=== PATIENT | female | born 1960 | race Caucasian/White ===

== ENCOUNTER → 2016-06-12 | Outpatient (REF) | payer MEDICARE, MEDICAID ==
[2016-06-12 13:26] LABS: ALBUMIN 3.6 GM/DL (3.2-5.2); ALBUMIN/GLOBULIN RATIO 1.06 (1.00-1.93); ALKALINE PHOSPHATASE 78 U/L (45-117); ALT/SGPT 15 U/L (12-78); ANION GAP 8 MEQ/L (8-16); AST/SGOT 15 U/L (15-37); BILIRUBIN,TOTAL 0.3 MG/DL (0.2-1.0); BLOOD UREA NITROGEN 21 MG/DL (7-18); CALCIUM LEVEL 8.7 MG/DL (8.5-10.1); CARBON DIOXIDE LEVEL 29 MEQ/L (21-32); CHLORIDE LEVEL 108 MEQ/L (98-107); CREATININE FOR GFR 0.86 MG/DL (0.55-1.02); FREE T4 0.92 NG/DL (0.76-1.46); GLOMERULAR FILTRATION RATE > 60.0 (>51); GLUCOSE, FASTING 85 MG/DL (70-105); POTASSIUM SERUM 4.2 MEQ/L (3.5-5.1); SODIUM LEVEL 145 MEQ/L (136-145)
== END ==
LOC: M SFHCPLAZ 10:26
PROVIDERS: ATTEND Nurse Practitioner Family
DX: I10 Essential (primary) hypertension (principal); E03.9 Hypothyroidism, unspecified

== ENCOUNTER → 2016-07-17 | Outpatient (CLI) | payer MEDICARE, MEDICAID ==
[2016-07-17 12:48] LABS: MEAN CORPUSCULAR HEMOGLOBIN 28.4 pg (27.0-33.0); MEAN CORPUSCULAR HGB CONC 33.7 g/dl (32.0-36.5); MEAN CORPUSCULAR VOLUME 84.1 fl (80.0-96.0); RED CELL DISTRIBUTION WIDTH 14.9 % (11.5-14.5)
[2016-07-17 13:06] LABS: ANION GAP 8 MEQ/L (8-16); BLOOD UREA NITROGEN 24 MG/DL (7-18); CARBON DIOXIDE LEVEL 28 MEQ/L (21-32); CHLORIDE LEVEL 107 MEQ/L (98-107); CREATININE FOR GFR 0.94 MG/DL (0.55-1.02); GLOMERULAR FILTRATION RATE > 60.0 (>51); GLUCOSE, FASTING 98 MG/DL (70-105); POTASSIUM SERUM 4.2 MEQ/L (3.5-5.1); SODIUM LEVEL 143 MEQ/L (136-145)
[2016-07-17 13:07] LABS: ALBUMIN 3.7 GM/DL (3.2-5.2); ALBUMIN/GLOBULIN RATIO 1.06 (1.00-1.93); ALKALINE PHOSPHATASE 79 U/L (45-117); ALT/SGPT 14 U/L (12-78); AST/SGOT 13 U/L (15-37); BILIRUBIN,DIRECT < 0.1 MG/DL (0.0-0.2); BILIRUBIN,TOTAL 0.4 MG/DL (0.2-1.0); PHOSPHORUS LEVEL 3.1 MG/DL (2.5-4.9); TOTAL PROTEIN 7.2 GM/DL (6.4-8.2)
== END ==
LOC: M WUC 09:26
PROVIDERS: ATTEND Podiatrist Foot & Ankle Surgery
DX: B35.1 Tinea unguium (principal); Z79.899 Other long term (current) drug therapy

== ENCOUNTER → 2016-08-21 | Outpatient (CLI) | payer MEDICARE, MEDICAID ==
[2016-08-21 12:59] LABS: ALBUMIN 3.5 GM/DL (3.2-5.2); ALBUMIN/GLOBULIN RATIO 1.13 (1.00-1.93); ALKALINE PHOSPHATASE 78 U/L (45-117); ALT/SGPT 14 U/L (12-78); ANION GAP 9 MEQ/L (8-16); AST/SGOT 12 U/L (15-37); BILIRUBIN,DIRECT < 0.1 MG/DL (0.0-0.2); BILIRUBIN,TOTAL 0.2 MG/DL (0.2-1.0); BLOOD UREA NITROGEN 20 MG/DL (7-18); CALCIUM LEVEL 8.3 MG/DL (8.5-10.1); CARBON DIOXIDE LEVEL 25 MEQ/L (21-32); CHLORIDE LEVEL 109 MEQ/L (98-107); CREATININE FOR GFR 0.84 MG/DL (0.55-1.02); GLOMERULAR FILTRATION RATE > 60.0 (>51); GLUCOSE, FASTING 102 MG/DL (70-105); PHOSPHORUS LEVEL 2.5 MG/DL (2.5-4.9); SODIUM LEVEL 143 MEQ/L (136-145); TOTAL PROTEIN 6.6 GM/DL (6.4-8.2)
[2016-08-21 13:04] LABS: MEAN CORPUSCULAR HEMOGLOBIN 27.5 pg (27.0-33.0); MEAN CORPUSCULAR HGB CONC 32.2 g/dl (32.0-36.5); MEAN CORPUSCULAR VOLUME 85.6 fl (80.0-96.0); RED CELL DISTRIBUTION WIDTH 15.1 % (11.5-14.5); WHITE BLOOD COUNT 5.8 K/mm3 (4.0-10.0)
== END ==
LOC: M WUC 09:36
PROVIDERS: ATTEND Podiatrist Foot & Ankle Surgery
DX: Z51.81 Encounter for therapeutic drug level monitoring (principal); Z79.899 Other long term (current) drug therapy

== ENCOUNTER → 2016-10-02 | Outpatient (CLI) | payer MEDICARE, MEDICAID ==
[2016-10-02 11:20] LABS: MEAN CORPUSCULAR HEMOGLOBIN 28.5 pg (27.0-33.0); MEAN CORPUSCULAR HGB CONC 33.7 g/dl (32.0-36.5); MEAN CORPUSCULAR VOLUME 84.5 fl (80.0-96.0); RED CELL DISTRIBUTION WIDTH 14.6 % (11.5-14.5); WHITE BLOOD COUNT 5.8 K/mm3 (4.0-10.0)
[2016-10-02 11:41] LABS: ALBUMIN 3.3 GM/DL (3.2-5.2); ALBUMIN/GLOBULIN RATIO 0.97 (1.00-1.93); ALKALINE PHOSPHATASE 75 U/L (45-117); ALT/SGPT 16 U/L (12-78); ANION GAP 6 MEQ/L (8-16); AST/SGOT 10 U/L (15-37); BILIRUBIN,DIRECT < 0.1 MG/DL (0.0-0.2); BILIRUBIN,TOTAL 0.3 MG/DL (0.2-1.0); BLOOD UREA NITROGEN 26 MG/DL (7-18); CALCIUM LEVEL 8.8 MG/DL (8.5-10.1); CARBON DIOXIDE LEVEL 29 MEQ/L (21-32); CHLORIDE LEVEL 108 MEQ/L (98-107); CREATININE FOR GFR 1.07 MG/DL (0.55-1.02); GLOMERULAR FILTRATION RATE 56.1 (>51); GLUCOSE, FASTING 127 MG/DL (70-105); PHOSPHORUS LEVEL 2.9 MG/DL (2.5-4.9); POTASSIUM SERUM 4.1 MEQ/L (3.5-5.1); SODIUM LEVEL 143 MEQ/L (136-145); TOTAL PROTEIN 6.7 GM/DL (6.4-8.2)
== END ==
LOC: M WUC 09:33
PROVIDERS: ATTEND Podiatrist Foot & Ankle Surgery
DX: B35.1 Tinea unguium (principal); Z79.899 Other long term (current) drug therapy

== ENCOUNTER → 2016-10-09 | Outpatient (REF) | payer MEDICARE, MEDICAID ==
[2016-10-09 13:41] LABS: ALBUMIN 3.4 GM/DL (3.2-5.2); ALBUMIN/GLOBULIN RATIO 0.94 (1.00-1.93); ALKALINE PHOSPHATASE 81 U/L (45-117); ALT/SGPT 14 U/L (12-78); ANION GAP 10 MEQ/L (8-16); AST/SGOT 14 U/L (15-37); BILIRUBIN,TOTAL 0.3 MG/DL (0.2-1.0); BLOOD UREA NITROGEN 21 MG/DL (7-18); CARBON DIOXIDE LEVEL 26 MEQ/L (21-32); CHLORIDE LEVEL 107 MEQ/L (98-107); CHOLESTEROL LEVEL 280 MG/DL (<200); FREE T4 1.05 NG/DL (0.76-1.46); GLOMERULAR FILTRATION RATE > 60.0 (>51); GLUCOSE, FASTING 98 MG/DL (70-105); POTASSIUM SERUM 4.2 MEQ/L (3.5-5.1); SODIUM LEVEL 143 MEQ/L (136-145); TRIGLYCERIDES LEVEL 219 MG/DL (<150)
== END ==
LOC: M SFHCPLAZ 10:37
PROVIDERS: ATTEND Nurse Practitioner Family
DX: E78.2 Mixed hyperlipidemia (principal); E03.9 Hypothyroidism, unspecified; I10 Essential (primary) hypertension

== ENCOUNTER → 2016-11-20 | Outpatient (CLI) | payer MEDICARE, MEDICAID ==
[2016-11-20 11:21] LABS: ALBUMIN 3.5 GM/DL (3.2-5.2); ALBUMIN/GLOBULIN RATIO 0.92 (1.00-1.93); BILIRUBIN,TOTAL 0.4 MG/DL (0.2-1.0); CALCIUM LEVEL 9.2 MG/DL (8.5-10.1); CREATININE FOR GFR 1.04 MG/DL (0.55-1.02); GLOMERULAR FILTRATION RATE 57.9 (>51); POTASSIUM SERUM 4.3 MEQ/L (3.5-5.1); TOTAL PROTEIN 7.3 GM/DL (6.4-8.2)
== END ==
LOC: M LAB 09:50
PROVIDERS: ATTEND Nurse Practitioner Family
DX: I10 Essential (primary) hypertension (principal)

== ENCOUNTER → 2017-01-22 | Outpatient (CLI) | payer MEDICARE, MEDICAID ==
[2017-01-22 11:03] LABS: MEAN CORPUSCULAR HGB CONC 34.1 g/dl (32.0-36.5); MEAN CORPUSCULAR VOLUME 85.2 fl (80.0-96.0); RED CELL DISTRIBUTION WIDTH 14.5 % (11.5-14.5); WHITE BLOOD COUNT 6.4 K/mm3 (4.0-10.0)
[2017-01-22 11:32] LABS: ALBUMIN 3.5 GM/DL (3.2-5.2); ALBUMIN/GLOBULIN RATIO 1.06 (1.00-1.93); ALKALINE PHOSPHATASE 87 U/L (45-117); ALT/SGPT 15 U/L (12-78); ANION GAP 10 MEQ/L (8-16); AST/SGOT 12 U/L (15-37); BILIRUBIN,DIRECT < 0.1 MG/DL (0.0-0.2); BILIRUBIN,TOTAL 0.3 MG/DL (0.2-1.0); BLOOD UREA NITROGEN 32 MG/DL (7-18); CALCIUM LEVEL 9.1 MG/DL (8.5-10.1); CARBON DIOXIDE LEVEL 26 MEQ/L (21-32); CHLORIDE LEVEL 105 MEQ/L (98-107); CREATININE FOR GFR 1.04 MG/DL (0.55-1.02); GLOMERULAR FILTRATION RATE 57.9 (>51); GLUCOSE, FASTING 119 MG/DL (70-105); PHOSPHORUS LEVEL 3.1 MG/DL (2.5-4.9); POTASSIUM SERUM 4.2 MEQ/L (3.5-5.1); SODIUM LEVEL 141 MEQ/L (136-145); TOTAL PROTEIN 6.8 GM/DL (6.4-8.2)
== END ==
LOC: M LAB 10:09
PROVIDERS: ATTEND Podiatrist Foot & Ankle Surgery
DX: B35.1 Tinea unguium (principal); Z79.899 Other long term (current) drug therapy

== ENCOUNTER → 2017-02-05 | Outpatient (CLI) | payer MEDICARE, MEDICAID ==
[2017-02-05 10:59] LABS: ALBUMIN 3.4 GM/DL (3.2-5.2); ALBUMIN/GLOBULIN RATIO 0.97 (1.00-1.93); BILIRUBIN,TOTAL 0.3 MG/DL (0.2-1.0); CALCIUM LEVEL 9.4 MG/DL (8.5-10.1); CREATININE FOR GFR 1.43 MG/DL (0.55-1.02); FREE T4 1.39 NG/DL (0.76-1.46); GLOMERULAR FILTRATION RATE 40.1 (>51); POTASSIUM SERUM 4.6 MEQ/L (3.5-5.1); TOTAL PROTEIN 6.9 GM/DL (6.4-8.2)
== END ==
LOC: M LAB 09:48
PROVIDERS: ATTEND Nurse Practitioner Family
DX: I10 Essential (primary) hypertension (principal)

== ENCOUNTER → 2017-02-11 | Outpatient (REF) | payer MEDICARE, MEDICAID | LOC: M SFHCPLAZ 16:24 | PROVIDERS: ATTEND Nurse Practitioner Family | DX: I10 Essential (primary) hypertension (principal); Z53.8 Procedure and treatment not carried out for other reasons ==

== ENCOUNTER → 2017-02-12 | Outpatient (CLI) | payer MEDICARE, MEDICAID ==
[2017-02-12 10:54] LABS: BASO % 0.6 % (0.0-1.0); EOS # 0.3 10^3/uL (0.0-0.50); EOS % 4.1 % (0.0-3.0); IMMATURE GRANULOCYTE % 0.2 % (0-0); LYMPH # 1.2 10^3/uL (1.5-4.5); LYMPH % 17.9 % (24.0-44.0); MEAN CORPUSCULAR HGB CONC 33.4 g/dl (32.0-36.5); MEAN CORPUSCULAR VOLUME 86.8 fl (80.0-96.0); MONO # 0.4 10^3/uL (0.0-0.8); MONO % 5.9 % (0.0-5.0); NEUTROPHILS # 4.6 10^3/uL (1.8-7.7); NEUTROPHILS % 71.3 % (36.0-66.0); PLATELET COUNT, AUTOMATED 339 10^3/uL (150-450); RED CELL DISTRIBUTION WIDTH 14.4 % (11.5-14.5); WHITE BLOOD COUNT 6.4 10^3/uL (4.0-10.0)
[2017-02-12 11:14] LABS: CREATININE FOR GFR 1.19 MG/DL (0.55-1.02); GLOMERULAR FILTRATION RATE 49.6 (>51); POTASSIUM SERUM 4.3 MEQ/L (3.5-5.1)
== END ==
LOC: M LAB 09:50
PROVIDERS: ATTEND Nurse Practitioner Family
DX: R10.9 Unspecified abdominal pain (principal)

== ENCOUNTER → 2017-02-12 | Outpatient (REF) | payer MEDICARE, MEDICAID | LOC: M SFHCPLAZ 17:14 | PROVIDERS: ATTEND Family Medicine | DX: R31.9 Hematuria, unspecified (principal) ==

== ENCOUNTER → 2017-02-25 | Outpatient (CLI) | payer MEDICARE, MEDICAID ==
--- NOTE | 2017-02-25 09:26 | REP ---
RENAL ULTRASOUND: HISTORY: Acute renal failure. The kidneys are normal in echogenicity. The right kidney measures 4.5 cm in transverse by 4.3 cm in AP by 10 cm in cephalocaudal dimensions. The left kidney measures 4.7 cm in transverse by 5.2 cm in AP by 10 cm in cephalocaudal dimensions. There is no hydronephrosis or mass. There are no filling defects in the urinary bladder. IMPRESSION: Normal renal ultrasound. Signed by Isidro Villafana MD 02/25/2017 09:27 A
== END ==
LOC: M RAD 08:33
PROVIDERS: ATTEND Nurse Practitioner Family
DX: N17.9 Acute kidney failure, unspecified (principal)

== ENCOUNTER → 2017-03-05 | Outpatient (REF) | payer MEDICARE, MEDICAID ==
[2017-03-05 19:36] LABS: CREATININE FOR GFR 1.16 MG/DL (0.55-1.02); GLOMERULAR FILTRATION RATE 51.1 (>51); POTASSIUM SERUM 4.1 MEQ/L (3.5-5.1)
== END ==
LOC: M SFHCPLAZ 15:19
PROVIDERS: ATTEND Nurse Practitioner Family
DX: I10 Essential (primary) hypertension (principal); R31.9 Hematuria, unspecified
CPT/HCPCS: 36415; 80048; 81001; 82043; G0463

== ENCOUNTER → 2017-04-30 | Outpatient (REF) | payer MEDICARE, MEDICAID ==
[2017-04-30 18:57] LABS: ALBUMIN 3.6 GM/DL (3.2-5.2); ALKALINE PHOSPHATASE 92 U/L (45-117); ALT/SGPT 16 U/L (12-78); ANION GAP 8 MEQ/L (8-16); AST/SGOT 15 U/L (7-37); BILIRUBIN,TOTAL 0.2 MG/DL (0.2-1.0); BLOOD UREA NITROGEN 26 MG/DL (7-18); CALCIUM LEVEL 8.8 MG/DL (8.5-10.1); CARBON DIOXIDE LEVEL 28 MEQ/L (21-32); CHLORIDE LEVEL 108 MEQ/L (98-107); CREATININE FOR GFR 0.82 MG/DL (0.55-1.02); FREE T4 1.19 NG/DL (0.76-1.46); GLOMERULAR FILTRATION RATE > 60.0 (>51); GLUCOSE, FASTING 112 MG/DL (70-105); SODIUM LEVEL 144 MEQ/L (136-145); TOTAL PROTEIN 7.2 GM/DL (6.4-8.2)
== END ==
LOC: M SFHCPLAZ 15:04
PROVIDERS: ATTEND Nurse Practitioner Family
DX: I10 Essential (primary) hypertension (principal); E03.9 Hypothyroidism, unspecified

== ENCOUNTER 2017-08-19 11:41 | Outpatient (RCR) | payer MEDICARE, MEDICAID | END 2017-09-07 | LOC: M PT 11:41 | DX: Z51.89 Encounter for other specified aftercare (principal); M17.11 Unilateral primary osteoarthritis, right knee | CPT/HCPCS: 97110 ==

== ENCOUNTER → 2017-08-21 | Outpatient (CLI) | payer MEDICARE, MEDICAID | LOC: M WHC 12:50 | DX: Z12.31 Encounter for screening mammogram for malignant neoplasm of breast (principal) | CPT/HCPCS: 77067 ==

== ENCOUNTER 2017-09-08 11:52 | Outpatient (RCR) | payer MEDICARE, MEDICAID | END 2017-10-08 | LOC: M PT 09-10 11:44 | DX: Z51.89 Encounter for other specified aftercare (principal); M17.11 Unilateral primary osteoarthritis, right knee | CPT/HCPCS: 97110 ==

== ENCOUNTER → 2017-09-22 | Outpatient (CLI) | payer MEDICARE ==
[2017-09-22 11:20] LABS: ALBUMIN 3.3 GM/DL (3.2-5.2); ALBUMIN/GLOBULIN RATIO 0.92 (1.00-1.93); ALKALINE PHOSPHATASE 92 U/L (45-117); ALT/SGPT 17 U/L (12-78); ANION GAP 5 MEQ/L (8-16); AST/SGOT 14 U/L (7-37); BILIRUBIN,TOTAL 0.4 MG/DL (0.2-1.0); BLOOD UREA NITROGEN 20 MG/DL (7-18); CARBON DIOXIDE LEVEL 30 MEQ/L (21-32); CHLORIDE LEVEL 107 MEQ/L (98-107); CHOLESTEROL LEVEL 198 MG/DL (<200); CHOLESTEROL RISK RATIO 3.666 (<5); CREATININE FOR GFR 0.87 MG/DL (0.55-1.30); FREE T4 1.15 NG/DL (0.76-1.46); GLOMERULAR FILTRATION RATE > 60.0 (>51); GLUCOSE, FASTING 89 MG/DL (70-100); HDL CHOLESTEROL 54 MG/DL (>40); LDL CHOLESTEROL 106.2 MG/DL (<100); NON-HDL-C 144 MG/DL; POTASSIUM SERUM 4.5 MEQ/L (3.5-5.1); SODIUM LEVEL 142 MEQ/L (136-145); THYROID STIMULATING HORMONE 0.129 uIU/ML (0.358-3.740); TOTAL PROTEIN 6.9 GM/DL (6.4-8.2); TRIGLYCERIDES LEVEL 189 MG/DL (<150)
== END ==
LOC: M LAB 09:57
DX: I10 Essential (primary) hypertension (principal); E03.9 Hypothyroidism, unspecified; M17.9 Osteoarthritis of knee, unspecified
CPT/HCPCS: 84443

== ENCOUNTER → 2018-01-21 | Outpatient (REF) | payer MEDICARE, MEDICAID ==
[2018-01-21 19:41] LABS: ALBUMIN 3.6 GM/DL (3.2-5.2); ALBUMIN/GLOBULIN RATIO 0.92 (1.00-1.93); ALKALINE PHOSPHATASE 93 U/L (45-117); ALT/SGPT 20 U/L (12-78); ANION GAP 9 MEQ/L (8-16); AST/SGOT 25 U/L (7-37); BILIRUBIN,TOTAL 0.4 MG/DL (0.2-1.0); BLOOD UREA NITROGEN 20 MG/DL (7-18); CALCIUM LEVEL 8.8 MG/DL (8.5-10.1); CARBON DIOXIDE LEVEL 26 MEQ/L (21-32); CHLORIDE LEVEL 107 MEQ/L (98-107); CHOLESTEROL LEVEL 182 MG/DL (<200); CHOLESTEROL RISK RATIO 4.232 (<5); CREATININE FOR GFR 1.04 MG/DL (0.55-1.30); FREE T4 1.17 NG/DL (0.76-1.46); GLOMERULAR FILTRATION RATE 57.7 (>51); GLUCOSE, FASTING 113 MG/DL (70-100); HDL CHOLESTEROL 43 MG/DL (>40); LDL CHOLESTEROL 100 MG/DL (<100); NON-HDL-C 139 MG/DL; POTASSIUM SERUM 4.4 MEQ/L (3.5-5.1); SODIUM LEVEL 142 MEQ/L (136-145); THYROID STIMULATING HORMONE 0.377 uIU/ML (0.358-3.740); TOTAL PROTEIN 7.5 GM/DL (6.4-8.2); TRIGLYCERIDES LEVEL 195 MG/DL (<150)
== END ==
LOC: M SFHCPLAZ 15:12
DX: M17.9 Osteoarthritis of knee, unspecified (principal); E03.9 Hypothyroidism, unspecified; I10 Essential (primary) hypertension
CPT/HCPCS: 84443

== ENCOUNTER → 2018-04-23 | Outpatient (REF) | payer MEDICARE, MEDICAID ==
[2018-04-23 16:35] LABS: ALBUMIN 3.7 GM/DL (3.2-5.2); ALBUMIN/GLOBULIN RATIO 1.03 (1.00-1.93); ALKALINE PHOSPHATASE 98 U/L (45-117); ALT/SGPT 17 U/L (12-78); ANION GAP 6 MEQ/L (8-16); AST/SGOT 14 U/L (7-37); BILIRUBIN,TOTAL 0.3 MG/DL (0.2-1.0); BLOOD UREA NITROGEN 29 MG/DL (7-18); CALCIUM LEVEL 8.9 MG/DL (8.5-10.1); CARBON DIOXIDE LEVEL 30 MEQ/L (21-32); CHLORIDE LEVEL 105 MEQ/L (98-107); CREATININE FOR GFR 0.96 MG/DL (0.55-1.30); GLOMERULAR FILTRATION RATE > 60.0 (>51); GLUCOSE, FASTING 95 MG/DL (70-100); POTASSIUM SERUM 4.6 MEQ/L (3.5-5.1); SODIUM LEVEL 141 MEQ/L (136-145); TOTAL PROTEIN 7.3 GM/DL (6.4-8.2)
== END ==
LOC: M SFHCPLAZ 14:15
DX: E03.9 Hypothyroidism, unspecified (principal); E78.2 Mixed hyperlipidemia; I10 Essential (primary) hypertension; Z68.42 Body mass index [BMI] 45.0-49.9, adult
CPT/HCPCS: 84443

== ENCOUNTER → 2018-08-23 | Outpatient (CLI) | payer MEDICARE, MEDICAID ==
--- NOTE | 2018-08-23 12:02 | REPMRS ---
Patient History The patient states she had a clinical breast exam in 05/2018. Patient is postmenopausal and is nulliparous. No known family history of cancer. No Hormone Replacement Therapy Digital Woman Screen Mammo: August 23, 2018 - Exam #: [id number] Bilateral CC and MLO view(s) were taken. Technologist: Nani Iglesias, Technologist Prior study comparison: August 21, 2017, digital woman screen mammo performed at [facility]. May 08, 2014, digital woman screen mammo performed at [facility]. May 24, 2012, digital woman screen mammo performed at [facility]. FINDINGS: There are scattered fibroglandular densities. There has been no change in the appearance of the mammogram from the prior studies. There is a mild amount of scattered fibroglandular density which is fairly symmetric. There is no interval development of dominant mass, architectural distortion, or clustered microcalcification suggestive of malignancy. 3-D tomosynthesis shows no additional findings. Assessment: BI-RADS/ACR category 1 mammogram. Negative Mammogram. Recommendation Routine screening mammogram of both breasts in 1 year (for women over age 40). This patient's Lifetime Breast Cancer RIsk is estimated at 9.5 %. This mammogram was interpreted with the aid of an FDA-approved computer-aided dectection system. Electronically Signed By: Ketan Wells MD 08/23/18 [id number]
== END ==
LOC: M WHC 09:46
PROVIDERS: ATTEND Nurse Practitioner Family
DX: Z12.31 Encounter for screening mammogram for malignant neoplasm of breast (principal); Z78.0 Asymptomatic menopausal state

== ENCOUNTER 2018-10-01 07:33 | Day surgery (SDC) | payer MEDICARE, MEDICAID ==
[~2018-10-01] VITALS: Ht 152.4 cm; Wt 119.7 kg
[~2018-10-01 07:33] MED LIST: AMLO5TAB6 PO; ATOR40TA75 PO; IBUP-1022 PO; LEVO75TA4 PO; LISI40TA PO; OMEP40CA2 PO; ZOFR8TAB24 PO
[2018-10-01] MEDS ORDERED: NS 1,000 ML IV SCH (08:00)
[2018-10-01] MEDS ORDERED: LIDOCAINE 2% INJ 100 MG/5 ML SDV (FOR ANES.) As Ordered ONE (08:38)
[2018-10-01] MEDS ORDERED: PROPOFOL 500 MG/50 ML VIAL As Ordered ONE (08:38)
[2018-10-01] MEDS ORDERED: METOPROLOL 5 MG/5 ML VIAL As Ordered ONE (08:48)
--- NOTE | 2018-10-01 08:56 | ROOR ---
Patient Name: Stefani Macdonald Procedure Date: 10/01/2018 8:34 AM Date of : 1960 Age: 58 Room: [facility] Gender: Female Note Status: Finalized Procedure: Colonoscopy Indications: High risk colon cancer surveillance: Personal history of colonic polyps Providers: Rip BULLOCK MD Referring MD: Kimberley Eldridge NP Requesting Provider: Medicines: Monitored Anesthesia Care Complications: No immediate complications. Procedure: Pre-Anesthesia Assessment: - The heart rate, respiratory rate, oxygen saturations, blood pressure, adequacy of pulmonary ventilation, and response to care were monitored throughout the procedure. The Colonoscope was introduced through the anus and advanced to the cecum, identified by appendiceal orifice and ileocecal valve. The colonoscopy was performed with difficulty due to poor bowel prep with stool present. Findings: The perianal and digital rectal examinations were normal. Two sessile polyps were found in the descending colon and splenic flexure. The polyps were 4 to 6 mm in size. These polyps were removed with a cold snare. Resection was complete, but the polyp tissue was not retrieved. The colon is grossly normal without large tumors or obstructing lesions. Unable to perform adequate detail examination. Small lesions may have been missed. (Colon Prep was POOR, Inadequate Visualisation) Impression: - (Colon Prep was POOR, Inadequate Visualisation) - Unable to perform adequate detail examination. Small lesions may have been missed. - Two 4 to 6 mm polyps in the descending colon and at the splenic flexure, removed with a cold snare. Complete resection. Polyp tissue not retrieved. Recommendation: - Repeat colonoscopy at the next available appointment because the bowel preparation was poor. - My office will call you within the next few days to reschedule a colonoscopy with alternate colon preparation. (All previous scopes with suboptimal prep. This scope with very poor prep. She will need additional colon prep for next colonoscopy) Rip Bullock MD Rip BULLOCK MD 10/01/2018 8:55:50 AM Electronically signed by Rip BULLOCK MD Number of Addenda: 0 Note Initiated On: 10/01/2018 8:34 AM Estimated Blood Loss: Estimated blood loss: none.
[2018-10-01 09:40] VITALS: BP 217/113
== END 2018-10-01 09:42 | disposition home or self-care (01) ==
LOC: M OPP 07:33
PROVIDERS: ATTEND Internal Medicine Gastroenterology
DX: K63.5 Polyp of colon (principal); Z86.010 Personal history of colon polyps

== ENCOUNTER 2018-10-13 13:30 | Emergency (ER) | payer MEDICARE, MEDICAID ==
[2018-10-13] MEDS ORDERED: GI COCKTAIL 50ML BTL(HYOSCYAMINE/MAALOX/LIDOCAINE VISCOUS)(1:3:1) PO ONE (13:45)
[2018-10-13] MEDS ORDERED: ASPIRIN 81 MG CHEW TABLET PO ONE (13:45)
[2018-10-13] MEDS ORDERED: ONDA4TAB5 PO (14:29)
--- NOTE | 2018-10-13 14:34 | REP ---
REASON FOR THE EXAMINATION: Chest pain. PRIORS: None. FINDINGS: The technique utilized in obtaining the radiograph has magnified the cardiac silhouette and accentuated the interstitial markings. The superior mediastinal structures are midline. The cardiac silhouette is unremarkable in size, shape, and position. The diaphragmatic surfaces of the lungs are regular, and the costophrenic angles are clear. The pulmonary roa are clear. The imaged osseous structures are intact. There is a large hiatal hernia. IMPRESSION: There is no acute cardiopulmonary disease. Electronically Signed by Wayne Alcantara DO 10/13/2018 04:57 P
[2018-10-13 14:50] VITALS: BP 174/80
[2018-10-13 15:06] LABS: BASO % 0.4 % (0.0-1.0); EOS # 0.2 10^3/uL (0.0-0.50); EOS % 2.4 % (0.0-3.0); HEMATOCRIT 39.9 % (36.0-47.0); HEMOGLOBIN 12.4 g/dl (12.0-15.5); LYMPH # 1.4 10^3/uL (1.5-4.5); MEAN CORPUSCULAR HEMOGLOBIN 26.4 pg (27.0-33.0); MEAN CORPUSCULAR HGB CONC 31.1 g/dl (32.0-36.5); MEAN CORPUSCULAR VOLUME 84.9 fl (80.0-96.0); MONO # 0.6 10^3/uL (0.0-0.8); MONO % 6.1 % (0.0-5.0); NEUTROPHILS # 6.9 10^3/uL (1.8-7.7); NEUTROPHILS % 75.9 % (36.0-66.0); PLATELET COUNT, AUTOMATED 283 10^3/uL (150-450); WHITE BLOOD COUNT 9.1 10^3/uL (4.0-10.0)
[2018-10-13 15:48] LABS: ALBUMIN 3.4 GM/DL (3.2-5.2); ALT/SGPT 19 U/L (12-78); BILIRUBIN,DIRECT < 0.1 MG/DL (0.0-0.2); BILIRUBIN,TOTAL 0.2 MG/DL (0.2-1.0); BLOOD UREA NITROGEN 21 MG/DL (7-18); CALCIUM LEVEL 9.2 MG/DL (8.8-10.2); CARBON DIOXIDE LEVEL 24 MEQ/L (21-32); CHLORIDE LEVEL 110 MEQ/L (98-107); CK-MB VALUE MASS < 1.0 NG/ML (<3.6); CPK CREATINE PHOSPHOKINASE 85 U/L (26-192); CREATININE FOR GFR 0.96 MG/DL (0.55-1.30); GLOMERULAR FILTRATION RATE > 60.0 (>45); GLUCOSE, FASTING 121 MG/DL (70-100); LIPASE 53 U/L (73-393); MB/CK RELATIVE INDEX 1.18 (< OR =4); POTASSIUM SERUM 3.9 MEQ/L (3.5-5.1); SODIUM LEVEL 143 MEQ/L (136-145); TOTAL PROTEIN 7.4 GM/DL (6.4-8.2); TROPONIN I < 0.02 NG/ML (< 0.10)
[2018-10-13 18:37] LABS: INR 0.9; PROTHROMBIN TIME 12.2 SECONDS (12.1-14.4)
--- NOTE | 2018-10-13 20:10 | ECGEPIP ---
[facility] - ED Test Date: 2018-10-13 Pat Name: NAYELI DEAL Department: Room: - Gender: Female Information Systems Architect: kathryn : 1960 Requested By: MARLIN LUCAS Order Number: [id number] Reading MD: Tania Madison Measurements Intervals [place] Rate: 93 P: 41 [place]: 166 QRS: 8 QRSD: 88 T: 30 QT: 336 QTc: 419 Interpretive Statements SINUS RHYTHM LEFT VENTRICULAR HYPERTROPHY AND ST-T CHANGE NO PRIOR FOR COMPARISON Electronically Signed on 10-13-2018 20:10:46 EDT by Tania Madison
== END 2018-10-13 16:28 | disposition home or self-care (01) ==
LOC: M ED 13:30 → EDBD 13:30 → M ED 16:28
DX: K21.0 Gastro-esophageal reflux disease with esophagitis (principal); I10 Essential (primary) hypertension; E78.5 Hyperlipidemia, unspecified; F79 Unspecified intellectual disabilities; E07.9 Disorder of thyroid, unspecified; Z79.899 Other long term (current) drug therapy; Z79.890 Hormone replacement therapy; Z88.5 Allergy status to narcotic agent

== ENCOUNTER → 2018-12-10 | Outpatient (REF) | payer MEDICARE, MEDICAID ==
[~2018-12-10] MED LIST changes: +ASTE0.15; +MUCI600T31 PO; -OMEP40CA2 PO; +OMEP40CA97 PO; +ONDA-83 PO; +SYNT100T PO
[2018-12-10 13:28] LABS: BASO # 0.1 10^3/uL (0.0-0.2); BASO % 0.6 % (0.0-1.0); EOS # 0.2 10^3/uL (0.0-0.50); EOS % 2.7 % (0.0-3.0); HEMATOCRIT 39.4 % (36.0-47.0); HEMOGLOBIN 12.1 g/dl (12.0-15.5); LYMPH # 1.5 10^3/uL (1.5-4.5); LYMPH % 17.8 % (24.0-44.0); MEAN CORPUSCULAR HEMOGLOBIN 26.1 pg (27.0-33.0); MEAN CORPUSCULAR HGB CONC 30.7 g/dl (32.0-36.5); MEAN CORPUSCULAR VOLUME 85.1 fl (80.0-96.0); MONO # 0.5 10^3/uL (0.0-0.8); MONO % 6.2 % (0.0-5.0); NEUTROPHILS # 6.2 10^3/uL (1.8-7.7); NEUTROPHILS % 72.4 % (36.0-66.0); PLATELET COUNT, AUTOMATED 386 10^3/uL (150-450); RED BLOOD COUNT 4.63 10^6/uL (4.00-5.40); WHITE BLOOD COUNT 8.6 10^3/uL (4.0-10.0)
[2018-12-10 13:52] LABS: C REACTIVE PROTEIN QUANTITATIV 1.65 MG/DL (0.00-0.30); RHEUMATOID FACTOR QUANT 10.3 IU/ML (<15.0); URIC ACID 4.2 MG/DL (2.6-6.0)
[2018-12-10 14:53] LABS: ERYTHROCYTE SEDIMENTATION RATE 52 mm/hr (0-30)
== END ==
LOC: M SFHCPLAZ 11:06
PROVIDERS: ATTEND Family Medicine
DX: M25.442 Effusion, left hand (principal)
CPT/HCPCS: 36415; 84550; 85025; 85652; 86140; 86200; 86431; G0463

== ENCOUNTER → 2018-12-13 | Outpatient (CLI) | payer MEDICARE, MEDICAID ==
[~2018-12-13] MED LIST changes: -ASTE0.15; -MUCI600T31 PO; +OMEP40CA2 PO; -OMEP40CA97 PO; -ONDA-83 PO; +ONDA4TAB5 PO; -SYNT100T PO
--- NOTE | 2018-12-14 04:10 | REP ---
Clinical: Swelling. Technique: AP, lateral, bilateral oblique views of the left hand. Findings: Generalized age-related degenerative changes include periarticular sclerosis and very early marginal spurring primarily involving the interphalangeal joints. Subtle subchondral sclerosis and joint space narrowing also identified at the first and second carpometacarpal joints and radiocarpal joint line. No obvious significant loose bodies or periarticular erosive changes. Mild swelling. No acute fracture dislocation. Impression: Generalized arthritic degenerative changes. Electronically Signed by David Connor MD 12/14/2018 04:01 A
== END ==
LOC: M SMT 13:59
PROVIDERS: ATTEND Family Medicine
DX: M19.042 Primary osteoarthritis, left hand (principal); M25.442 Effusion, left hand

== ENCOUNTER → 2018-12-20 | Outpatient (REF) | payer MEDICARE, MEDICAID ==
[~2018-12-20] MED LIST changes: +ASTE0.15; +SYNT100T PO
== END ==
LOC: M SFHCPLAZ 10:47
PROVIDERS: ATTEND Nurse Practitioner Family
DX: E03.9 Hypothyroidism, unspecified (principal)
CPT/HCPCS: 36415; 84443; G0463

== ENCOUNTER → 2018-12-22 | Outpatient (REF) | payer MEDICARE, MEDICAID ==
[~2018-12-22] MED LIST changes: +MUCI600T31 PO
== END ==
PROVIDERS: ATTEND Nurse Practitioner Family
DX: E03.9 Hypothyroidism, unspecified (principal)

== ENCOUNTER 2019-01-13 07:00 | Day surgery (SDC) | payer MEDICARE, MEDICAID ==
[~2019-01-13] VITALS: Ht 154.9 cm; Wt 123.3 kg
[~2019-01-13 07:00] MED LIST changes: +LIDOCAINE 2% INJ 100 MG/5 ML SDV (FOR ANES.) As Ordered ONE; -MUCI600T31 PO; +PROPOFOL 200 MG/20 ML VIAL As Ordered ONE
[2019-01-13] MEDS ORDERED: NS 1,000 ML IV ONE (07:15)
[2019-01-13] MEDS ORDERED: MUCI600T31 PO (07:16)
--- NOTE | 2019-01-13 08:41 | ROOR ---
Patient Name: Stefani Macdonald Procedure Date: 01/13/2019 8:12 AM Date of : 1960 Age: 58 Room: [facility] Gender: Female Note Status: Finalized Procedure: Colonoscopy Indications: High risk colon cancer surveillance: Personal history of colonic polyps, Surveillance: Personal history of adenomatous polyps, inadequate prep on last colonoscopy (less than 1 year ago) Providers: Rip BULLOCK MD Referring MD: Mahin Maravilla MD Requesting Provider: Medicines: Monitored Anesthesia Care Complications: No immediate complications. Procedure: Pre-Anesthesia Assessment: - The heart rate, respiratory rate, oxygen saturations, blood pressure, adequacy of pulmonary ventilation, and response to care were monitored throughout the procedure. The Colonoscope was introduced through the anus and advanced to the terminal ileum, with identification of the appendiceal orifice and IC valve. The colonoscopy was performed without difficulty. The patient tolerated the procedure well. The quality of the bowel preparation was excellent. The bowel preparation used was GoLYTELY via 2x4 L ("Neurogenic prep") dose instruction. Findings: The perianal and digital rectal examinations were normal. Two sessile polyps were found in the sigmoid colon and cecum. The polyps were diminutive in size. These polyps were removed with a cold snare. Resection and retrieval were complete. Multiple medium-mouthed diverticula were found in the sigmoid colon. Internal hemorrhoids were found during retroflexion. The hemorrhoids were medium-sized. The exam was otherwise without abnormality on direct and retroflexion views. Impression: - Two diminutive polyps in the sigmoid colon and in the cecum, removed with a cold snare. Resected and retrieved. - Diverticulosis in the sigmoid colon. - Internal hemorrhoids. - The examination was otherwise normal on direct and retroflexion views. Recommendation: - Repeat colonoscopy in 5 years for surveillance. - (Use Neurogenic prep again for next colonoscopy) Rip Bullock MD Rip BULLOCK MD 01/13/2019 8:41:19 AM Electronically signed by Rip BULLOCK MD Number of Addenda: 0 Note Initiated On: 01/13/2019 8:12 AM Estimated Blood Loss: Estimated blood loss: none.
[2019-01-13 09:07] VITALS: BP 189/88
[2019-01-13] MEDS ORDERED: PROPOFOL 200 MG/20 ML VIAL As Ordered ONE (09:11)
== END 2019-01-13 09:12 | disposition home or self-care (01) ==
LOC: M OPP 07:00
PROVIDERS: ATTEND Internal Medicine Gastroenterology
DX: Z86.010 Personal history of colon polyps (principal); Z09 Encounter for follow-up examination after completed treatment for conditions other than malignant neoplasm; D12.0 Benign neoplasm of cecum; Z79.899 Other long term (current) drug therapy; Z88.5 Allergy status to narcotic agent

== ENCOUNTER → 2019-01-28 | Outpatient (REF) | payer MEDICARE, MEDICAID ==
[~2019-01-28] MED LIST changes: -LIDOCAINE 2% INJ 100 MG/5 ML SDV (FOR ANES.) As Ordered ONE; +MUCI600T31 PO; -PROPOFOL 200 MG/20 ML VIAL As Ordered ONE
== END ==
LOC: M SFHCPLAZ 17:44
PROVIDERS: ATTEND Nurse Practitioner Family
DX: R30.0 Dysuria (principal)
CPT/HCPCS: 81002; 87086; G0463

== ENCOUNTER 2019-04-18 19:05 | Outpatient (CLI) | payer MEDICARE, MEDICAID ==
[~2019-04-18 19:05] MED LIST changes: -OMEP40CA2 PO; +OMEP40CA97 PO
--- NOTE | 2019-04-19 21:43 | SLEEPCENT ---
DATE OF PROCEDURE: 04/18/2019 Ordered by: Nigel Ansari MD Nocturnal polysomnography was performed for evaluation of sleep physiology in this patient with snoring, comorbidities of hypertension, hypothyroidism and gastroesophageal reflux. 8 hours and 23 minutes of data were reviewed. There were 316.5 minutes of sleep identified. Sleep latency was normal at 13.5 minutes. REM sleep was not achieved. Sleep architecture was severely fragmented. Overall sleep efficiency was 63.6%. The patient's electrocardiogram showed a sinus rhythm with an average heart rate of 80 beats per minute. EEG showed some artifactual change, no focal events and normal waveforms for awake and sleep. There were 608 respiratory events identified of 10 seconds in duration or greater for an apnea-hypopnea index of 115.3. The events were primarily obstructive, but 92 central and mixed apneas were also seen. The events were not exclusive to sleep stage nor body posture. Arousals from respiratory events occurred 30.5 times per hour and oxygen desaturations were seen into the low 70s. Having clearly established the presence of obstructive sleep apnea syndrome, testing was stopped about midnight for the application of pressure therapy. The patient was fit with a ResMed AirFit F20 full face mask of medium size and 4 cm of water pressure were applied to the circuit. The lights were then extinguished. Pressure titration proceeded and despite optimal mask fit and a minimal air leak the patient was changed to a bilevel device. At no point were the respiratory events palliated during this split night study. IMPRESSION: Severe obstructive sleep apnea syndrome (G47.33). Apnea-hypopnea index 115.3. RECOMMENDATIONS The patient should be encouraged to return to the sleep disorder center at her earliest convenience for a full night of pressure titration. In the interim, alcohol and sedative avoidance should be practiced and caution exercised during the operation of motor vehicles.
== END 2019-04-19 15:00 ==
LOC: M SLEEP 19:05
PROVIDERS: ATTEND Internal Medicine Pulmonary Disease
DX: R06.83 Snoring (principal)

== ENCOUNTER → 2019-04-20 | Outpatient (CLI) | payer MEDICARE ==
[2019-04-20 13:03] LABS: BASO % 0.5 % (0.0-1.0); EOS # 0.3 10^3/uL (0.0-0.5); EOS % 3.2 % (0.0-3.0); HEMATOCRIT 38.2 % (36.0-47.0); HEMOGLOBIN 11.6 g/dl (12.0-15.5); LYMPH # 1.2 10^3/uL (1.5-5.0); LYMPH % 14.7 % (24.0-44.0); MEAN CORPUSCULAR HEMOGLOBIN 25.8 pg (27.0-33.0); MEAN CORPUSCULAR HGB CONC 30.4 g/dl (32.0-36.5); MEAN CORPUSCULAR VOLUME 84.9 fl (80.0-96.0); MONO # 0.6 10^3/uL (0.0-0.8); MONO % 6.6 % (0.0-5.0); NEUTROPHILS # 6.2 10^3/uL (1.5-8.5); NEUTROPHILS % 74.6 % (36.0-66.0); PLATELET COUNT, AUTOMATED 409 10^3/uL (150-450); WHITE BLOOD COUNT 8.3 10^3/uL (4.0-10.0)
[2019-04-20 14:28] LABS: ALBUMIN 3.5 GM/DL (3.2-5.2); BILIRUBIN,TOTAL 0.3 MG/DL (0.2-1.0); CHOLESTEROL RISK RATIO 3.86 (<5); CREATININE FOR GFR 1.09 MG/DL (0.55-1.30); FREE T4 1.05 NG/DL (0.76-1.46); GLOMERULAR FILTRATION RATE 54.5 (>45); POTASSIUM SERUM 4.5 MEQ/L (3.5-5.1); THYROID STIMULATING HORMONE 1.91 uIU/ML (0.358-3.740); TOTAL PROTEIN 7.3 GM/DL (6.4-8.2)
--- NOTE | 2019-04-20 14:45 | REPPI ---
RIGHT KNEE SERIES: Six views. HISTORY: Osteoarthritis. Comparison right knee radiographs are from March 05, 2013. FINDINGS: There is severe three-compartment osteoarthritis with significant joint space narrowing and some remodeling of the medial compartment. There is patellofemoral and lateral compartment osteoarthritic spurring which is well established. There are reactive sclerotic changes medially and laterally. Diffuse osteopenia is noted. Joint space narrowing has progressed since the 2012 prior study. There is periarticular calcification adjacent to the medial femoral condyle which appears to be outside the joint. IMPRESSION: Severe three compartment osteoarthritis of the right knee radiographically somewhat more pronounced than on the 2013 study. This is most pronounced in the medial compartment. Electronically Signed by Mook Wells MD 04/20/2019 05:42 P
[2019-04-21 03:18] LABS: HEMOGLOBIN A1c 6.4 %
== END ==
LOC: M PLAIMG 09:42
PROVIDERS: ATTEND Physician Assistant Medical
DX: M17.11 Unilateral primary osteoarthritis, right knee (principal); I10 Essential (primary) hypertension; E78.2 Mixed hyperlipidemia; E03.9 Hypothyroidism, unspecified; E66.01 Morbid (severe) obesity due to excess calories; Z79.899 Other long term (current) drug therapy; Z23 Encounter for immunization
CPT/HCPCS: 36415; 73564; 80053; 80061; 82550; 83036; 84439; 84443; 85025; 90682; G0008; G0463

== ENCOUNTER → 2019-05-08 | Outpatient (CLI) | payer MEDICARE, MEDICAID ==
--- NOTE | 2019-05-09 14:29 | SLEEPCENT ---
DATE OF STUDY: 05/08/2019 ORDERED BY: Dr. Ansari Nocturnal polysomnography was performed for the titration of pressure therapy in this patient with severe obstructive sleep apnea syndrome, apnea-hypopnea 115.3. For testing, a ResMed AirFit F20 full face mask of medium size was used, 4 cm of water pressure were applied to the circuit, and the lights were extinguished. 8 hours and 5 minutes of data were reviewed. There were 357.5 minutes of sleep identified. Sleep latency was normal at 8.5 minutes. Rapid eye movement (REM) latency was delayed at 115 minutes. Sleep architecture improved late in the study on optimal pressure therapy. There are two REM cycles noted. Overall sleep efficiency 74.2%. The patient's electrocardiogram showed a sinus rhythm with an average heart rate of 75 beats per minute. EEG showed reasonably normal waveforms for awake and sleep. Some EKG bleed through was noted. Respiratory events were found best palliated with continuous positive airway pressure (CPAP) at a pressure of +17. Some limb activity was noted. Limb movement arousal index was only 4.4. IMPRESSION: Obstructive sleep apnea syndrome (G47.33). RECOMMENDATION: Nightly use of pressure therapy 17 cm of water.
== END ==
LOC: M SLEEP 19:03
PROVIDERS: ATTEND Nurse Practitioner Family
DX: G47.33 Obstructive sleep apnea (adult) (pediatric) (principal)

== ENCOUNTER → 2019-08-01 | Outpatient (REF) | payer MEDICARE, MEDICAID ==
[~2019-08-01] MED LIST changes: +ONDA-83 PO; -ONDA4TAB5 PO
[2019-08-01 12:25] LABS: ALBUMIN 3.5 GM/DL (3.2-5.2); BILIRUBIN,TOTAL 0.3 MG/DL (0.2-1.0); CREATININE FOR GFR 1.14 MG/DL (0.55-1.30); GLOMERULAR FILTRATION RATE 51.6 (>45); POTASSIUM SERUM 4.6 MEQ/L (3.5-5.1); TOTAL PROTEIN 7.3 GM/DL (6.4-8.2)
== END ==
PROVIDERS: ATTEND Physician Assistant Medical
DX: I10 Essential (primary) hypertension (principal)

== ENCOUNTER → 2019-10-12 | Outpatient (REF) | payer MEDICARE, MEDICAID ==
[2019-10-12 15:37] LABS: BASO % 0.4 % (0.0-1.0); EOS # 0.3 10^3/uL (0.0-0.5); HEMATOCRIT 35.8 % (36.0-47.0); HEMOGLOBIN 11.4 g/dl (12.0-15.5); LYMPH # 1.4 10^3/uL (1.5-5.0); LYMPH % 12.5 % (24.0-44.0); MEAN CORPUSCULAR HEMOGLOBIN 26.7 pg (27.0-33.0); MEAN CORPUSCULAR HGB CONC 31.8 g/dl (32.0-36.5); MEAN CORPUSCULAR VOLUME 83.8 fl (80.0-96.0); MONO # 0.8 10^3/uL (0.0-0.8); MONO % 6.9 % (0.0-5.0); NEUTROPHILS # 8.7 10^3/uL (1.5-8.5); NEUTROPHILS % 76.8 % (36.0-66.0); PLATELET COUNT, AUTOMATED 429 10^3/uL (150-450); RED BLOOD COUNT 4.27 10^6/uL (4.00-5.40); WHITE BLOOD COUNT 11.3 10^3/uL (4.0-10.0)
[2019-10-12 16:16] LABS: ALBUMIN 3.7 GM/DL (3.2-5.2); ALT/SGPT 18 U/L (12-78); BILIRUBIN,TOTAL 0.4 MG/DL (0.2-1.0); BLOOD UREA NITROGEN 27 MG/DL (7-18); CARBON DIOXIDE LEVEL 27 MEQ/L (21-32); CHLORIDE LEVEL 104 MEQ/L (98-107); CHOLESTEROL LEVEL 239 MG/DL (<200); CHOLESTEROL RISK RATIO 5.311 (<5); CREATININE FOR GFR 1.24 MG/DL (0.55-1.30); FREE T4 1.14 NG/DL (0.76-1.46); GLOMERULAR FILTRATION RATE 46.8 (>45); GLUCOSE, FASTING 106 MG/DL (70-100); HDL CHOLESTEROL 45 MG/DL (>40); NON-HDL-C 194 MG/DL; POTASSIUM SERUM 4.2 MEQ/L (3.5-5.1); SODIUM LEVEL 140 MEQ/L (136-145); THYROID STIMULATING HORMONE 0.554 uIU/ML (0.358-3.740); TOTAL PROTEIN 7.8 GM/DL (6.4-8.2); TRIGLYCERIDES LEVEL 411 MG/DL (<150)
== END ==
LOC: M PLALAB 12:52
PROVIDERS: ATTEND Physician Assistant Medical
DX: I10 Essential (primary) hypertension (principal); E78.2 Mixed hyperlipidemia; E03.9 Hypothyroidism, unspecified
CPT/HCPCS: 36415; 80053; 80061; 84439; 84443; 85025; G0463

== ENCOUNTER → 2019-10-14 | Outpatient (REF) | payer MEDICARE, MEDICAID ==
[2019-10-14 09:37] LABS: BASO % 0.5 % (0.0-1.0); EOS # 0.4 10^3/uL (0.0-0.5); HEMATOCRIT 32.3 % (36.0-47.0); HEMOGLOBIN 10.6 g/dl (12.0-15.5); LYMPH # 1.4 10^3/uL (1.5-5.0); LYMPH % 16.1 % (24.0-44.0); MEAN CORPUSCULAR HEMOGLOBIN 27.6 pg (27.0-33.0); MEAN CORPUSCULAR HGB CONC 32.8 g/dl (32.0-36.5); MEAN CORPUSCULAR VOLUME 84.1 fl (80.0-96.0); MONO # 0.6 10^3/uL (0.0-0.8); MONO % 6.7 % (0.0-5.0); NEUTROPHILS # 6.2 10^3/uL (1.5-8.5); NEUTROPHILS % 71.2 % (36.0-66.0); PLATELET COUNT, AUTOMATED 347 10^3/uL (150-450); RED BLOOD COUNT 3.84 10^6/uL (4.00-5.40); WHITE BLOOD COUNT 8.6 10^3/uL (4.0-10.0)
[2019-10-14 10:03] LABS: BILIRUBIN,TOTAL 0.3 MG/DL (0.2-1.0); CALCIUM LEVEL 8.9 MG/DL (8.8-10.2); CHOLESTEROL RISK RATIO 4.543 (<5); CREATININE FOR GFR 1.12 MG/DL (0.55-1.30); GLOMERULAR FILTRATION RATE 52.7 (>45); THYROID STIMULATING HORMONE 0.659 uIU/ML (0.358-3.740); TOTAL PROTEIN 6.6 GM/DL (6.4-8.2)
== END ==
PROVIDERS: ATTEND Physician Assistant Medical
DX: E78.2 Mixed hyperlipidemia (principal); E03.9 Hypothyroidism, unspecified; I10 Essential (primary) hypertension

== ENCOUNTER → 2019-10-19 | Outpatient (CLI) | payer MEDICARE, MEDICAID ==
--- NOTE | 2019-10-19 11:38 | REPMRS ---
Patient History The patient states she has not had a clinical breast exam in over a year. No known family history of cancer. No Hormone Replacement Therapy 3D TOMOSYNTHESIS WAS PERFORMED. [facility]%. VOLCIERRAA NEAL A. Digital Woman Screen Mammo: October 19, 2019 - Exam #: [id number] Bilateral CC and MLO view(s) were taken. Technologist: Dorothy Carpenter, Technologist Prior study comparison: August 23, 2018, bilateral digital woman screen mammo performed at [facility]. August 21, 2017, digital woman screen mammo performed at [facility]. FINDINGS: There are scattered fibroglandular densities. There has been no change in the appearance of the mammogram from the prior studies. There is a mild amount of residual fibroglandular tissue which is fairly symmetric. There is no interval development of dominant mass, architectural distortion, or clustered microcalcification suggestive of malignancy. Assessment: BI-RADS/ACR category 1 mammogram. Negative Mammogram. Recommendation Routine screening mammogram in 1 year (for women over age 40). This mammogram was interpreted with the aid of an FDA-approved computer-aided dectection system. Electronically Signed By: Clayton Nye MD 10/19/19 0858
== END ==
LOC: M WHC 10:38
PROVIDERS: ATTEND Nurse Practitioner Family
DX: Z12.31 Encounter for screening mammogram for malignant neoplasm of breast (principal)

== ENCOUNTER → 2019-11-24 | Outpatient (REF) | payer MEDICARE, MEDICAID | LOC: M SFHCPLAZ 11:22 | PROVIDERS: ATTEND Physician Assistant | DX: J02.9 Acute pharyngitis, unspecified (principal) ==

== ENCOUNTER → 2019-12-19 | Outpatient (REF) | payer MEDICARE, MEDICAID ==
[~2019-12-19] MED LIST changes: +AMLO1TAB24 PO; -AMLO5TAB6 PO
[2020-01-27 12:50] LABS: BASO # 0.1 10^3/uL (0.0-0.2); BASO % 0.5 % (0.0-1.0); EOS # 0.5 10^3/uL (0.0-0.5); HEMATOCRIT 34.7 % (36.0-47.0); HEMOGLOBIN 11.1 g/dl (12.0-15.5); LYMPH # 1.5 10^3/uL (1.5-5.0); LYMPH % 15.8 % (24.0-44.0); MEAN CORPUSCULAR HEMOGLOBIN 27.4 pg (27.0-33.0); MEAN CORPUSCULAR VOLUME 85.7 fl (80.0-96.0); MONO # 0.6 10^3/uL (0.0-0.8); NEUTROPHILS # 6.7 10^3/uL (1.5-8.5); NEUTROPHILS % 72.3 % (36.0-66.0); PLATELET COUNT, AUTOMATED 385 10^3/uL (150-450); RED BLOOD COUNT 4.05 10^6/uL (4.00-5.40); WHITE BLOOD COUNT 9.3 10^3/uL (4.0-10.0)
[2020-02-06 12:02] LABS: FERRITIN 30 NG/ML (8-252); FREE T4 0.99 NG/DL (0.76-1.46); IRON (FE) 43 UG/DL (50-170)
== END ==
PROVIDERS: ATTEND Physician Assistant Medical
DX: D64.9 Anemia, unspecified (principal); E03.9 Hypothyroidism, unspecified; E66.9 Obesity, unspecified; Z79.899 Other long term (current) drug therapy

== ENCOUNTER → 2020-01-04 | Outpatient (REF) | payer MEDICARE, MEDICAID ==
[2020-01-04 14:00] LABS: APPEARANCE, URINE HAZY (CLEAR); BACTERIA, URINE AUTO NEGATIVE (NEGATIVE); BILIRUBIN, URINE AUTO NEGATIVE (NEGATIVE); BLOOD, URINE BLOOD NEGATIVE (NEGATIVE); COLOR, URINE YELLOW (YELLOW); GLUCOSE, URINE (UA) AUTO NEGATIVE (NEGATIVE); KETONE, URINE AUTO NEGATIVE (NEGATIVE); LEUKOCYTE ESTERASE, URINE AUTO 2+ (NEGATIVE); MUCUS, URINE SMALL (NEGATIVE); NITRITE, URINE AUTO NEGATIVE (NEGATIVE); PROTEIN, URINE AUTO NEGATIVE (NEGATIVE); RBC, URINE AUTO 1 /HPF (0-3); SPECIFIC GRAVITY URINE AUTO 1.017 (1.002-1.035); SQUAMOUS EPITHELIAL CELL UR AU 2 /HPF (0-6); UROBILINOGEN, URINE AUTO 0.2 mg/dL (0.0-2.0); WBC, URINE AUTO 13 /HPF (0-3)
== END ==
PROVIDERS: ATTEND Physician Assistant Medical
DX: R30.0 Dysuria (principal)

== ENCOUNTER → 2020-02-02 | Outpatient (REF) | payer MEDICARE, MEDICAID | PROVIDERS: ATTEND Physician Assistant Medical | DX: E78.2 Mixed hyperlipidemia (principal) ==

== ENCOUNTER → 2020-02-03 | Outpatient (REF) | payer MEDICARE, MEDICAID ==
[2020-02-04 11:38] LABS: ALBUMIN 3.7 GM/DL (3.2-5.2); ALT/SGPT 18 U/L (12-78); BILIRUBIN,DIRECT < 0.1 MG/DL (0.0-0.2); BILIRUBIN,TOTAL 0.2 MG/DL (0.2-1.0); TOTAL PROTEIN 7.3 GM/DL (6.4-8.2)
== END ==
PROVIDERS: ATTEND Physician Assistant Medical
DX: E78.2 Mixed hyperlipidemia (principal)

== ENCOUNTER → 2020-02-16 | Outpatient (REF) | payer MEDICARE, MEDICAID ==
[2020-02-16 11:01] LABS: ALBUMIN 3.5 GM/DL (3.2-5.2); BILIRUBIN,TOTAL 0.2 MG/DL (0.2-1.0); CALCIUM LEVEL 9.2 MG/DL (8.8-10.2); CHOLESTEROL RISK RATIO 4.638 (<5); CREATININE FOR GFR 1.08 MG/DL (0.55-1.30); GLOMERULAR FILTRATION RATE 54.9 (>45); POTASSIUM SERUM 4.3 MEQ/L (3.5-5.1); TOTAL PROTEIN 7.4 GM/DL (6.4-8.2)
== END ==
PROVIDERS: ATTEND Physician Assistant Medical
DX: E78.5 Hyperlipidemia, unspecified (principal)

== ENCOUNTER → 2020-02-29 | Outpatient (REF) | payer MEDICARE, MEDICAID ==
[2020-02-29 13:34] LABS: BASO # 0.1 10^3/uL (0.0-0.2); BASO % 0.6 % (0.0-1.0); EOS # 0.5 10^3/uL (0.0-0.5); EOS % 5.4 % (0.0-3.0); HEMATOCRIT 37.1 % (36.0-47.0); HEMOGLOBIN 11.3 g/dl (12.0-15.5); LYMPH # 1.2 10^3/uL (1.5-5.0); LYMPH % 12.7 % (24.0-44.0); MEAN CORPUSCULAR HGB CONC 30.5 g/dl (32.0-36.5); MEAN CORPUSCULAR VOLUME 85.3 fl (80.0-96.0); MONO # 0.6 10^3/uL (0.0-0.8); MONO % 6.3 % (0.0-5.0); NEUTROPHILS # 7.2 10^3/uL (1.5-8.5); NEUTROPHILS % 74.6 % (36.0-66.0); PLATELET COUNT, AUTOMATED 328 10^3/uL (150-450); RED BLOOD COUNT 4.35 10^6/uL (4.00-5.40); WHITE BLOOD COUNT 9.7 10^3/uL (4.0-10.0)
[2020-02-29 13:56] LABS: HEMOGLOBIN A1c 6.1 %
[2020-02-29 14:07] LABS: ALBUMIN 3.7 GM/DL (3.2-5.2); BILIRUBIN,TOTAL 0.3 MG/DL (0.2-1.0); CALCIUM LEVEL 9.4 MG/DL (8.8-10.2); CHOLESTEROL RISK RATIO 4.5 (<5); CREATININE FOR GFR 1.18 MG/DL (0.55-1.30); FREE T4 1.23 NG/DL (0.76-1.46); GLOMERULAR FILTRATION RATE 49.6 (>45); POTASSIUM SERUM 4.5 MEQ/L (3.5-5.1); THYROID STIMULATING HORMONE 1.22 uIU/ML (0.358-3.740); TOTAL PROTEIN 7.5 GM/DL (6.4-8.2)
== END ==
LOC: M PLALAB 11:34
PROVIDERS: ATTEND Physician Assistant Medical
DX: E78.2 Mixed hyperlipidemia (principal); J30.9 Allergic rhinitis, unspecified; E03.9 Hypothyroidism, unspecified; E66.01 Morbid (severe) obesity due to excess calories; Z79.899 Other long term (current) drug therapy
CPT/HCPCS: 36415; 80053; 80061; 83036; 84439; 84443; 85025; G0463

== ENCOUNTER → 2020-03-01 | Outpatient (REF) | payer MEDICARE, MEDICAID ==
[2020-03-01 08:45] LABS: BASO % 0.4 % (0.0-1.0); EOS # 0.6 10^3/uL (0.0-0.5); EOS % 6.5 % (0.0-3.0); HEMATOCRIT 33.5 % (36.0-47.0); HEMOGLOBIN 10.4 g/dl (12.0-15.5); LYMPH # 1.3 10^3/uL (1.5-5.0); LYMPH % 13.6 % (24.0-44.0); MEAN CORPUSCULAR HEMOGLOBIN 26.1 pg (27.0-33.0); MEAN CORPUSCULAR VOLUME 84.2 fl (80.0-96.0); MONO # 0.5 10^3/uL (0.0-0.8); MONO % 5.5 % (0.0-5.0); NEUTROPHILS # 7.2 10^3/uL (1.5-8.5); NEUTROPHILS % 73.5 % (36.0-66.0); PLATELET COUNT, AUTOMATED 382 10^3/uL (150-450); RED BLOOD COUNT 3.98 10^6/uL (4.00-5.40); WHITE BLOOD COUNT 9.8 10^3/uL (4.0-10.0)
[2020-03-01 09:31] LABS: ALBUMIN 3.4 GM/DL (3.2-5.2); BILIRUBIN,TOTAL 0.3 MG/DL (0.2-1.0); CHOLESTEROL RISK RATIO 4.361 (<5); CREATININE FOR GFR 1.33 MG/DL (0.55-1.30); FREE T4 1.08 NG/DL (0.76-1.46); GLOMERULAR FILTRATION RATE 43.2 (>45); POTASSIUM SERUM 4.3 MEQ/L (3.5-5.1); THYROID STIMULATING HORMONE 1.17 uIU/ML (0.358-3.740)
[2020-03-01 10:22] LABS: HEMOGLOBIN A1c 6.1 %
== END ==
PROVIDERS: ATTEND Physician Assistant Medical
DX: E03.9 Hypothyroidism, unspecified (principal); E78.2 Mixed hyperlipidemia; E66.01 Morbid (severe) obesity due to excess calories

== ENCOUNTER → 2020-03-14 | Outpatient (CLI) | payer MEDICARE, MEDICAID ==
--- NOTE | 2020-03-14 16:53 | DEXA ---
INDICATION: M81.0 POSTMENOPAUSAL BONE LOSS. COMPARISON: 06/10/2011 TECHNIQUE: Bone density was measured using dual-energy x-ray absorptiometry (DEXA). FINDINGS: AP SPINE L1-L4 BMD 1.342 g/cm2 Young Adult T-Score 1.2 Age Matched Z-Score 2.5. LT FEMUR, TOTAL BMD 1.012 g/cm2 Young Adult T-Score 0.0 Age Matched Z-Score 1.0. LT NECK BMD 0.888 g/cm2 Young Adult T-Score -1.1 Age Matched Z-Score 0.2. RT FEMUR, TOTAL BMD 0.919 g/cm2 Young Adult T-Score -0.7 Age Matched Z-Score 0.3. RT NECK BMD 0.851 g/cm2 Young Adult T-Score -1.3 Age Matched Z-Score 0.0. IMPRESSION: There is normal bone density of the spine. There is low bone density of the left hip. There is low bone density of the right hip. The density of the spine has decreased 2.3% since the initial exam on 06/10/2011. The density of the left hip has decreased 16.9% since initial exam on 06/10/2011. The density of the right hip has decreased 16.6% since the initial exam on 06/10/2011. FOLLOW-UP: Recommendation for the next bone density exam: 2 years. <Electronically signed by Clayton Nye > 03/14/20 0152
== END ==
LOC: M WHC 12:32
PROVIDERS: ATTEND Physician Assistant Medical
DX: Z12.39 Encounter for other screening for malignant neoplasm of breast (principal); M81.0 Age-related osteoporosis without current pathological fracture

== ENCOUNTER → 2020-04-25 | Outpatient (REF) | payer MEDICARE, MEDICAID | PROVIDERS: ATTEND Internal Medicine | DX: Z20.828 Contact with and (suspected) exposure to other viral communicable diseases (principal) ==

== ENCOUNTER → 2020-04-30 | Outpatient (REF) | payer MEDICARE, MEDICAID | PROVIDERS: ATTEND Internal Medicine | DX: Z20.828 Contact with and (suspected) exposure to other viral communicable diseases (principal) ==

== ENCOUNTER → 2020-05-07 | Outpatient (REF) | payer MEDICARE, MEDICAID | PROVIDERS: ATTEND Internal Medicine | DX: Z20.828 Contact with and (suspected) exposure to other viral communicable diseases (principal) ==

== ENCOUNTER → 2020-05-14 | Outpatient (REF) | payer MEDICARE, MEDICAID | PROVIDERS: ATTEND Internal Medicine | DX: Z11.52 Encounter for screening for COVID-19 (principal) ==

== ENCOUNTER → 2020-05-21 | Outpatient (REF) | payer MEDICARE, MEDICAID ==
[~2020-05-21] MED LIST changes: +ATOR80TA59 PO; +AZEL0.055 NARES; +CHLO25TA PO; +DEBR6.5S4 AU; +MIRA3350 PO; +ROBI1LIQ9 PO; +VOLT1GEL15 TOP
== END ==
PROVIDERS: ATTEND Internal Medicine
DX: Z20.822 Contact with and (suspected) exposure to COVID-19 (principal)

== ENCOUNTER 2020-05-28 07:05 | Emergency (ER) | payer MEDICARE, MEDICAID ==
[~2020-05-28] VITALS: Ht 152.4 cm; Wt 129.0 kg
[~2020-05-28 07:05] MED LIST changes: -ATOR80TA59 PO; -AZEL0.055 NARES; -CHLO25TA PO; -DEBR6.5S4 AU; -LISI40TA PO; +LISI40TA4 PO; -MIRA3350 PO; -ROBI1LIQ9 PO; -VOLT1GEL15 TOP
--- OUTSIDE RECORDS SUMMARY | 2020-05-28 07:11 | CCD ---
Author Author [facility] Organization [facility] Address Unknown Phone Unavailable Care Team Providers Care Facility Worker Name Role Phone Ben Israel Unavailable PROBLEMS Type Condition ICD9-CM Code JIE74-RC Code Onset Dates Condition S tatus SNOMED Code Notes Problem Other acquired deformities of unspecified foot M21 .6X9 Active 455290834991258 Problem Primary generalized (osteo)arthritis M15.0 Act melina 174816780 Problem Osteoarthritis of knee, unspecified M17.9 Acti ve 583677447 Problem Essential (primary) hypertension I10 Active 24685664 Problem Gastro-esophageal reflux disease with esophagitis K21.0 Active 565757803 Problem Mixed hyperlipidemia E78.2 Active 824587119 Problem Mild intellectual disabilities F70 Active 8 8979162 Problem BMI 45.0-49.9, adult Z68.42 Active 340677704 Problem Daytime somnolence R40.0 Active 368874716689 Problem Allergic rhinitis, unspecified seasonality, unspecifie d trigger J30.9 Active 80190766 Problem Breast cancer screening Z12.39 Active 67379186 1 Problem BMI 40.0-44.9, adult Z68.41 Active 644620729 Problem Postmenopausal bone loss M81.0 Active 0775285 09 Problem Hypothyroidism, unspecified E03.9 Active 4093 0008 Problem Cervical cancer screening declined Z53.20 Activ e 872336334 Problem Primary osteoarthritis of right knee M17.11 Act melina 584459814748233 Problem Morbid (severe) obesity due to excess calories E66 .01 Active 82012162789801 Problem Colon cancer screening Z12.11 Active 623778946 ALLERGIES Allergen (clinical drug ingredient) Drug/Non Drug Allergy do cumented on EMR Reaction Allergy Type Onset Date Status CODIENE UNKNOWN Non Drug Allergy Active ENCOUNTERS from 1960 to 2020-02-28 Encounter Location Date Provider Diagnosis [facility] [place] [address] Feb, Ben Lindy Cough R05 and Gastro-esophageal reflux d isease with esophagitis K21.0 IMMUNIZATIONS Vaccine Route Administration Date Status Influenza (18 yrs & older) Flublok IM Intramuscular Apr 20, 2019 Administered TD Adult 0.5mL (Tetanus) Unknown May 09, 2002 Adminis tered Influenza (6mo & up) Fluzone Unknown Feb 14, 2016 Adm inistered Influenza (6mo & up) Fluzone Unknown Feb 28, 2015 Adm inistered Influenza (6mo & up) Fluzone Unknown Feb 08, 2014 Adm inistered Influenza (6mo & up) Fluzone IM Intramuscular Mar 04, 2013 Ad ministered SOCIAL HISTORY Tobacco Use: Social History Observation Description Date Details (start date - stop date) Never Smoker Sex Assigned At : Social History Observation Description Sex Assigned At Unknown Education: Question Answer Notes Level of Education: Finished High School special ed Audit Question Answer Notes Total Score: 0 Interpretation: Alcohol Education Advent: Question Answer Notes Advent 05 Sabianist Sexual Hx: Question Answer Notes Had sex in the last 12 months (vaginal, oral, or anal)? No Have you ever had an STD? No Drug and Alcohol Question Answer Notes Total Score: 0 Interpretation: No problems reported Alcohol Screening: Question Answer Notes Did you have a drink containing alcohol in the past year? No Points 0 Interpretation Negative BMI Care Goal Follow-Up Question Answer Notes Above Normal BMI Follow-Up Dietary management educatio n, guidance, and counseling Tobacco Use: Question Answer Notes Are you a: never smoker never smoker REASON FOR REFERRAL No Information VITAL SIGNS No information MEDICATIONS Medication SIG (Take, Route, Frequency, Duration) Start Date En d Date Status Cetirizine HCl 10 MG 1 tablet Orally Once a day for 90 day(s) 2019 Active Lipitor 40 MG 1 tablet once a day orally 3 0 day(s) Orally Once a day for 90 day(s) Active Omeprazole 40 MG 1 capsule once a day orally 30 day(s) orally bi d for 30 Days Active Fluticasone Propionate 50 MCG/ACT 1 spray in each nost ril Nasally Once a day for 7 day(s) Nov, Active Robitussin Cough+Chest Clifford DM 5-100mg/ 5mL; give 10mL orally as needed every 8 hours for cough for 30 days Active Chlorthalidone 25 MG 1 tablet in the morning with food Orally Once a day for 30 day(s) Active May Use 1 humidifier in the room J30.9 Daily Mar, Active Lisinopril 40 MG 1 tablet once a day orally 3 0 day(s) Orally Once a day for 30 Days Active Debrox 6.5 % 5 drops into each ear Otic Twice a week for 30 Days Oct, Active Levothyroxine Sodium 100 MCG 1 tablet on an empty stom ach in the morning Orally Once a day Active Azelastine HCl 0.15 % 1 spray in each nostril Nasally Twice a day Active Zofran ODT 4 MG 1 tablet on the tongue and a llow to dissolve Orally q 8 hours prn nausea for 30 day(s) September, Active AmLODIPine Besylate 5 MG 1 tablet Orally Once a day for 30 Days Active Diclofenac Sodium 1 % 2gram Transdermal four times daily as needed for 30 Days Oct, Active Ibuprofen 600 MG 1 tablet with food or milk Orally Three times a day prn pain Active Mucinex 600 MG 1 tablet as needed Orally every 12 hrs p rn cough for 30 days Dec, Active Nystatin 985488 UNIT/GM 1 application topically groi n folds Twice a day for 14 day(s) May, Not-Taking PROCEDURES No Information RESULTS No Results REASON FOR VISIT refill-omeprazole and mucinex MEDICAL (GENERAL) HISTORY Type Description Date Medical History mild mental retardation Medical History hyperlipidemia Medical History Hiatal hernia Medical History hypertension Medical History impaired fasting glucose Medical History osteoarthritis right knee Medical History fractured left wrist 04/2003 Medical History postmenopause Medical History hypothyroidism Medical History ulcerative esophagitis--EGD 08/22--needs long-term PPI tx Medical History Colonoscopy 2013: Tubular Ad enoma, repeat 5 years; 01/2019 repeat colonoscopy 2 polyps diminutive out of sigm. colon f/u 5Y Surgical History colonoscopy--adenomatous jacey yps (repeat in [address] Bullock) 07/19 Surgical History colonoscopy, EGD--ulcerative esophagitis, tubular adenoma (Repeat 5 years) 08/22 Surgical History colonoscopy, poor prep, repeat 01/2019 20 Hospitalization History never hospitalized Goals Section No Information Health Concerns No Information MEDICAL EQUIPMENT No Information MENTAL STATUS No Information FUNCTIONAL STATUS No Information ASSESSMENTS Encounter Date Diagnosis Notes Feb, Gastro-esophageal reflux disease with es ophagitis (ICD-10 - K21.0) Feb, Cough (ICD-10 - R05) PLAN OF TREATMENT Medication Medication Name Sig Start Date Stop Date Mucinex 600 MG 1 tablet as needed Orally every 12 hrs p rn cough for 30 days Dec, Robitussin Cough+Chest Clifford DM 5-100mg/ 5mL; give 10mL orally as needed every 8 hours for cough for 30 days Lipitor 40 MG 1 tablet once a day orally 3 0 day(s) Orally Once a day for 90 day(s) Omeprazole 40 MG 1 capsule once a day orally 30 day(s) orally bi d for 30 Days Fluticasone Propionate 50 MCG/ACT 1 spray in each nost ril Nasally Once a day for 7 day(s) Nov, Cetirizine HCl 10 MG 1 tablet Orally Once a day for 90 day(s) Nov, Next Appt Details Provider Name:Nadeen Castellanos, 2019- 0- 11:30:00 AM, [address] [place] [address], [phone], Provider Name:Sneha Andrea, 2020-05-24 09:30:00 AM, [address] [place] [address], [phone], Insurance Providers Payer Name Payer Address Payer Phone Insured Name Patient Relati onship to Insured Coverage Start Date Coverage End Date MEDICAID [employer] [address] [facility] [id number] NAYELI DEAL [facility] [address] [facility] [phone] NAYELI DEAL
--- OUTSIDE RECORDS SUMMARY | 2020-05-28 07:11 | CCD ---
Author Author [facility] Organization [facility] Address Unknown Phone Unavailable Care Team Providers Care Plugger Man Name Role Phone Ben Israel Unavailable PROBLEMS Type Condition ICD9-CM Code OFX18-NC Code Onset Dates Condition S tatus SNOMED Code Notes Problem Other acquired deformities of unspecified foot M21 .6X9 Active 441690488009513 Problem Primary generalized (osteo)arthritis M15.0 Act melina 686868084 Problem Osteoarthritis of knee, unspecified M17.9 Acti ve 672573713 Problem Essential (primary) hypertension I10 Active 09594113 Problem Gastro-esophageal reflux disease with esophagitis K21.0 Active 888127224 Problem Mixed hyperlipidemia E78.2 Active 563813544 Problem Mild intellectual disabilities F70 Active 8 7425555 Problem BMI 45.0-49.9, adult Z68.42 Active 378972154 Problem Daytime somnolence R40.0 Active 689795154261 Problem Allergic rhinitis, unspecified seasonality, unspecifie d trigger J30.9 Active 53040358 Problem Breast cancer screening Z12.39 Active 22752119 1 Problem BMI 40.0-44.9, adult Z68.41 Active 849392451 Problem Postmenopausal bone loss M81.0 Active 6536303 09 Problem Hypothyroidism, unspecified E03.9 Active 4093 0008 Problem Cervical cancer screening declined Z53.20 Activ e 906645214 Problem Primary osteoarthritis of right knee M17.11 Act melina 643013627500756 Problem Morbid (severe) obesity due to excess calories E66 .01 Active 10423147803215 Problem Colon cancer screening Z12.11 Active 495400629 ALLERGIES Allergen (clinical drug ingredient) Drug/Non Drug Allergy do cumented on EMR Reaction Allergy Type Onset Date Status CODIENE UNKNOWN Non Drug Allergy Active ENCOUNTERS from 1960 to 2020-05-02 Encounter Location Date Provider Diagnosis [facility] [place] [address] Apr, Ben Israel Hypothyroidism, unspecified E03.9 and Es sential (primary) hypertension I10 IMMUNIZATIONS Vaccine Route Administration Date Status Influenza (18 yrs & older) Flublok IM Intramuscular Apr 20, 2019 Administered Influenza (18 yrs & older) Flublok Unknown Feb 29, 2020 Administered TD Adult 0.5mL (Tetanus) Unknown May [...] Notes Total Score: 0 Interpretation: Alcohol Education Judaism: Question Answer Notes Judaism 05 Caodaism Sexual Hx: Question Answer Notes Had sex [...] MEDICATIONS Medication SIG (Take, Route, Frequency, Duration) Notes Start Da te End Date Status Robitussin Cough+Chest Clifford DM 5-100mg/ 5mL; give 10mL orally as needed every 8 hours for cough for 30 days Acti ve Mucinex 600 MG 1 tablet as needed Orally every 12 hrs prn cough for 30 days Dec, Active Nystatin 808881 UNIT/GM 1 application topically groi n folds Twice a day for 14 day(s) May, Not-Taking Cetirizine HCl 10 MG 1 tablet Orally Once a day for 90 day(s) Nov, Active May Use 1 humidifier in the room J30.9 Daily Mar, Active Lisinopril 40 MG 1 tablet once a day orally 3 0 day(s) Orally Once a day for 30 Days Active AmLODIPine Besylate 5 MG 1 tablet Orally Once a day for 30 Days Active Levothyroxine Sodium 100 MCG 1 tablet on an empty stom ach in the morning Orally Once a day for 30 Days Active Ibuprofen 600 MG 1 tablet with food or milk O rally Three times a day prn pain for 30 days Active Omeprazole 40 MG 1 capsule once a day orally 30 day(s) or ally bid for 90 day(s) Active Fluticasone Propionate 50 MCG/ACT 1 spray in each nost ril Nasally Once a day for 7 day(s) Nov, Active Zofran ODT 4 MG 1 tablet on the tongue and a llow to dissolve Orally q 8 hours prn nausea for 30 day(s) September, Active Azelastine HCl 0.15 % 1 spray in each nostril Nasally Twice a day Active Lipitor 80 MG 1 tablet Orally Once a day for 30 day(s) Feb, Active Diclofenac Sodium 1 % 2gram Transdermal four times daily as needed for 30 Days Active Debrox 6.5 % 5 drops into each ear Otic Twice a week for 30 Days Oct, Active Chlorthalidone 25 MG 1 tablet in the morning with food Orally Once a day for 30 day(s) Active PROCEDURES No Information RESULTS No Results REASON FOR VISIT refill-amlodipine, lisinopril, levothyroxine MEDICAL (GENERAL) HISTORY Type Description Date Medical [...] History colonoscopy, poor prep, repeat 01/2019 20 19 Hospitalization History never hospitalized Goals Section No Information Health Concerns No Information MEDICAL EQUIPMENT No Information MENTAL STATUS No Information FUNCTIONAL STATUS No Information ASSESSMENTS Encounter Date Diagnosis Assessment Notes Treatment Notes Treatm ent Clinical Notes Apr, Hypothyroidism, unspecified (ICD-10 - E03.9) Apr, Essential (primary) hypertension (ICD-10 - I10) PLAN OF TREATMENT Medication Medication Name Sig Start Date Stop Date Levothyroxine Sodium 100 MCG 1 tablet on an empty stom ach in the morning Orally Once a day for 30 Days Diclofenac Sodium 1 % 2gram Transdermal four times daily as needed for 30 Days AmLODIPine Besylate 5 MG 1 tablet Orally Once a day for 30 Days Lisinopril 40 MG 1 tablet once a day orally 3 0 day(s) Orally Once a day for 30 Days Omeprazole 40 MG 1 capsule once a day orally 30 day(s) or ally bid for 90 day(s) Azelastine HCl 0.15 % 1 spray in each nostril Nasally Twice a da y Lipitor 80 MG 1 tablet Orally Once a day for 30 day(s) Feb, Ibuprofen 600 MG 1 tablet with food or milk O rally Three times a day prn pain for 30 days Next Appt Details Provider Name:Sneha Andrea, 2020-05-24 09:30:00 AM, [address] [place] [address], [phone], Provider Name:Nadeen Castellanos, 07-03 11:30:00 AM, [address] [place] [address], [phone], Insurance Providers Payer Name Payer Address Payer Phone Insured Name Patient Relati onship to Insured Coverage Start Date Coverage End Date MEDICAID [employer] [address] [facility] [address] NAYELI DEAL [facility] [place] [address] [facility] [address] NAYELI DEAL
--- OUTSIDE RECORDS SUMMARY | 2020-05-28 07:11 | CCD ---
Author Author [facility] Organization [facility] Address Unknown Phone Unavailable Care Team Providers Care Railroad Carman Name Role Phone Nadeen Castellanos Unavailable PROBLEMS Type Condition ICD9-CM Code XQJ12-GY Code Onset Dates Condition S tatus SNOMED Code Notes Problem Other acquired deformities of unspecified foot M21 .6X9 Active 856307098490261 Problem Primary generalized (osteo)arthritis M15.0 Act melina 398318933 Problem Osteoarthritis of knee, unspecified M17.9 Acti ve 883196298 Problem Essential (primary) hypertension I10 Active 33474306 Problem Gastro-esophageal reflux disease with esophagitis K21.0 Active 712874823 Problem Mixed hyperlipidemia E78.2 Active 410041513 Problem Mild intellectual disabilities F70 Active 8 1448472 Problem BMI 45.0-49.9, adult Z68.42 Active 466535712 Problem Daytime somnolence R40.0 Active 626197023600 Problem Allergic rhinitis, unspecified seasonality, unspecifie d trigger J30.9 Active 88903407 Problem Breast cancer screening Z12.39 Active 02379312 1 Problem BMI 40.0-44.9, adult Z68.41 Active 100823271 Problem Postmenopausal bone loss M81.0 Active 0490107 09 Problem Hypothyroidism, unspecified E03.9 Active 4093 0008 Problem Cervical cancer screening declined Z53.20 Activ e 064957541 Problem Primary osteoarthritis of right knee M17.11 Act melina 973434499606515 Problem Morbid (severe) obesity due to excess calories E66 .01 Active 66405109211910 Problem Colon cancer screening Z12.11 Active 628086249 ALLERGIES Allergen (clinical drug ingredient) Drug/Non Drug Allergy do cumented on EMR Reaction Allergy Type Onset Date Status CODIENE UNKNOWN Non Drug Allergy Active ENCOUNTERS from 1960 to 2020-03-01 Encounter Location Date Provider Diagnosis [facility] [place] [address] Feb, Nadeen Castellanos IMMUNIZATIONS Vaccine Route Administration Date Status Influenza (18 yrs & older) Flublok Unknown Feb 29, 2020 Administered Influenza (18 yrs & older) Flublok IM [...] Notes Total Score: 0 Interpretation: Alcohol Education Buddhist: Question Answer Notes Buddhist 05 Yarsanism Sexual Hx: Question Answer Notes Had sex [...] Duration) Start Date En d Date Status Robitussin Cough+Chest Clifford DM 5-100mg/ 5mL; give 10mL orally as needed every 8 hours for cough for 30 days Active Mucinex 600 MG 1 tablet as needed Orally every 12 hrs p rn cough for 30 days Dec, Active Levothyroxine Sodium 100 MCG 1 tablet on an empty stom ach in the morning Orally Once a day Active Cetirizine HCl 10 MG 1 tablet Orally Once a day for 90 day(s) 2019 Active Debrox 6.5 % 5 drops into each ear Otic Twice a week for 30 Days Oct, Active May Use 1 humidifier in the room J30.9 Daily Mar, Active Fluticasone Propionate 50 MCG/ACT 1 spray in each nost ril Nasally Once a day for 7 day(s) Nov, Active Lipitor 80 MG 1 tablet Orally Once a day for 30 day(s) Feb, Active Ibuprofen 600 MG 1 tablet with food or milk Orally Three times a day prn pain Active Omeprazole 40 MG 1 capsule once a day orally 30 day(s) or ally bid for 90 day(s) Active AmLODIPine Besylate 5 MG 1 tablet Orally Once a day for 30 Days Active Chlorthalidone 25 MG 1 tablet in the morning with food Orally Once a day for 30 day(s) Active Nystatin 779976 UNIT/GM 1 application topically groi n folds Twice a day for 14 day(s) May, Not-Taking Zofran ODT 4 MG 1 tablet on the tongue and a llow to dissolve Orally q 8 hours prn nausea for 30 day(s) September, Active Diclofenac Sodium 1 % 2gram Transdermal four times daily as needed for 30 Days Active Azelastine HCl 0.15 % 1 spray in each nostril Nasally Twice a day Active Lisinopril 40 MG 1 tablet once a day orally 3 0 day(s) Orally Once a day for 30 Days Active PROCEDURES No Information RESULTS No Results REASON FOR VISIT lab slip MEDICAL (GENERAL) HISTORY Type Description Date Medical [...] No Information FUNCTIONAL STATUS No Information ASSESSMENTS No Information PLAN OF TREATMENT Medication Medication Name Sig Start Date Stop Date Lipitor 80 MG 1 tablet Orally Once a day for 30 day(s) Feb, Diclofenac Sodium 1 % 2gram Transdermal four times daily as needed for 30 Days Levothyroxine Sodium 100 MCG 1 tablet on an empty stom ach in the morning Orally Once a day Azelastine HCl 0.15 % 1 spray in each nostril Nasally Twice a da y Omeprazole 40 MG 1 capsule once a day orally 30 day(s) or ally bid for 90 day(s) Next Appt Details Provider Name:Sneha Mendez, 2020-05-24 09:30:00 AM, [address] [place] [address], [phone], Provider Name:Nadeen Castellanos, 07-03 09:30:00 AM, [address] [place] [address], [phone], Insurance Providers Payer Name Payer Address Payer Phone Insured Name Patient Relati onship to Insured Coverage Start Date Coverage End Date [facility] [address] [facility] [phone] NAYELI DEAL MEDICAID [employer] [address] [facility] [id number] NAYELI DEAL
--- OUTSIDE RECORDS SUMMARY | 2020-05-28 07:11 | CCD ---
Author Author [facility] Organization [facility] Address Unknown Phone Unavailable Care Team Providers Care Print Traffic Manager Name Role Phone Nadeen Castellanos Unavailable PROBLEMS Type Condition ICD9-CM Code YPL11-LP Code Onset Dates Condition S tatus SNOMED Code Notes Problem Other acquired deformities of unspecified foot M21 .6X9 Active 921824361657103 Problem Primary generalized (osteo)arthritis M15.0 Act melina 782004603 Problem Osteoarthritis of knee, unspecified M17.9 Acti ve 595076965 Problem Essential (primary) hypertension I10 Active 99656027 Problem Gastro-esophageal reflux disease with esophagitis K21.0 Active 518507895 Problem Mixed hyperlipidemia E78.2 Active 006153769 Problem Mild intellectual disabilities F70 Active 8 4506616 Problem BMI 45.0-49.9, adult Z68.42 Active 570753933 Problem Daytime somnolence R40.0 Active 681805306581 Problem Allergic rhinitis, unspecified seasonality, unspecifie d trigger J30.9 Active 69600577 Problem Breast cancer screening Z12.39 Active 13735867 1 Problem BMI 40.0-44.9, adult Z68.41 Active 760658894 Problem Postmenopausal bone loss M81.0 Active 1242651 09 Problem Hypothyroidism, unspecified E03.9 Active 4093 0008 Problem Cervical cancer screening declined Z53.20 Activ e 151599598 Problem Primary osteoarthritis of right knee M17.11 Act melina 147349711064500 Problem Morbid (severe) obesity due to excess calories E66 .01 Active 97197215710891 Problem Colon cancer screening Z12.11 Active 132080748 ALLERGIES Allergen (clinical drug ingredient) Drug/Non Drug Allergy do cumented on EMR Reaction Allergy Type Onset Date Status CODIENE UNKNOWN Non Drug Allergy Active ENCOUNTERS from 1960 to 2020-03-01 Encounter Location Date Provider Diagnosis [facility] [place] [address] Feb, Nadeen Castellanos Primary osteoarthritis of right knee M17 .11 ; Gastro-esophageal reflux disease with esophagitis K21.0 ; Hypothyroidism, unspecified E03.9 ; Mixed hyperlipidemia E78.2 ; Mild intellectual disabilities F70 ; Other acquired deformities of unspecified foot M21.6X9 ; Allergic rhinitis, unspecified seasonality, unspecified trigger J30.9 ; Daytime somnolence R40.0 ; Morbid (severe) obesity due to excess calories E66.01 ; Body mass index (BMI) 50.0- 59.9, adult Z68.43 ; Breast cancer screening Z12.39 ; Cervical cancer screening declined Z53.20 ; Colon cancer screening Z12.11 and Postmenopausal bone loss M8 1.0 IMMUNIZATIONS Vaccine Route Administration Date Status Influenza [...] Notes Total Score: 0 Interpretation: Alcohol Education Restorationism: Question Answer Notes Restorationism 05 Sikh Sexual Hx: Question Answer Notes Had sex [...] REASON FOR REFERRAL No Information VITAL SIGNS Weight 285 lbs Feb, Height 61 in Feb, BMI 53.84 kg/m2 Feb, Heart Rate 88 /min Feb, Respiratory Rate 20 /min Feb, Temperature 97.5 degrees Fahrenheit Feb, Oximetry 95 Feb, Blood pressure systolic 120 mm Hg Feb, Blood pressure diastolic 80 mm Hg Feb, MEDICATIONS Medication SIG (Take, Route, Frequency, Duration) [...] a day for 30 day(s) Active Nystatin 602871 UNIT/GM 1 application topically groi n folds [...] 30 Days Active PROCEDURES No Information RESULTS REASON FOR VISIT 4-5M f/u c SS MEDICAL (GENERAL) HISTORY Type Description Date Medical [...] Information ASSESSMENTS Encounter Date Diagnosis Notes Feb, Allergic rhinitis, unspecifi ed seasonality, unspecified trigger (ICD-10 - J30.9) Feb, Other acquired deformities of unspecifie d foot (ICD-10 - M21.6X9) Feb, Morbid (severe) obesity due to excess ca lories (ICD-10 - E66.01) Feb, Daytime somnolence (ICD-10 - R40.0) Feb, Hypothyroidism, unspecified (ICD-10 - E0 3.9) Feb, Postmenopausal bone loss (ICD-10 - M81.0 ) Feb, Colon cancer screening (ICD-10 - Z12.11) Feb, Mild intellectual disabilities (ICD-10 - F70) Feb, Mixed hyperlipidemia (ICD-10 - E78.2) Feb, Breast cancer screening (ICD-10 - Z12.39 ) Feb, Body mass index (BMI) 50.0-59.9, adult ( ICD-10 - Z68.43) Feb, Gastro-esophageal reflux disease with es ophagitis (ICD-10 - K21.0) Feb, Primary osteoarthritis of right knee (IC D-10 - M17.11) Feb, Cervical cancer screening declined (ICD- 10 - Z53.20) PLAN OF TREATMENT Medication Medication Name Sig [...] day(s) or ally bid for 90 day(s) Treatment Notes Assessment Notes Clinical Notes Primary osteoarthritis of right knee Tyler etimes has some discomfort severe OA on xray 3 compartments. WT. Loss encouraged and diclofenac gel helps. Uses cane Postmenopausal bone loss ordered again30 05 last dexa Gastro-esophageal reflux disease with esophagitis Still some symp.s so increased to bid, advised of behavioral changes to make10/2019 wbc 11.3, H&H 11.4&35.8 , plats. 429k Hypothyroidism, unspecified Corrected wi ll check labs.10/2019 TSH 0.554, FT4 1.19 Mixed hyperlipidemia Not corrected well so increased lipitor to 80mgqhs, repeat labs. in 3Mos. pmgjyml24/2020 117/47/271, ast 14, alt 194non- hdl/45/1523804/2019 LDL 101/HDL 50/TG 140, 4.3, 31/1.08, 102, ast 14, alt na 140,4.2, bun/cr27/1.24, gluc 106, calc.9.0, ast 10, alt 18 Mild intellectual disabilities Stable Other acquired deformities of unspecified foot Uses Allergic rhinitis, unspecified seasonality, unspecified trig shilpi Added humidifier, cough syrup Colon cancer screening 01/2019 repeat col onoscopy 2 polyps diminutive out of sigm. colon f/u 5Y-Dr. Bullock2014 tub. amanuel. out f/u 5Y Cervical cancer screening declined Lele galarza Pap NILM Daytime somnolence Having headaches marissa kening her Pulm. ocajhdl20/2019 saw Pulm. sleep study abnl Morbid (severe) obesity due to excess calories BMI 53 Breast cancer screening 08/2018 Mammogram Cat. 1 Benign08/2017 Mammogram Cat. 1 Benign Treatment Notes Test Name Order Date [facility] Screening Bilateral (Ultrasound if Indicated ) (3D Mammo) 2020-03-01 Dexa, Full Body 2020-03-01 Future Test Test Name Order Date LIPID PANEL (CARDIAC RISK) 20200531 CPK CREATINE PHOSPHOKINASE 20200531 Comprehensive Metabolic Profile (CMP) 20200531 Next Appt Details 4 Months c BW prior c SS; BW today too R soni: Provider Name:Sneha Mendez, 2020-05-24 09:30:00 AM, [address] [place], [address], Provider Name:Nadeen Castellanos, 07-03 09:30:00 AM, [address] [place], [phone], Insurance Providers Payer Name Payer Address Payer Phone Insured Name Patient Relati onship to Insured Coverage Start Date Coverage End Date [facility] [address] [facility] [id number] NAYELI DEAL [facility] [address] [facility] [phone] NAYELI DEAL
--- OUTSIDE RECORDS SUMMARY | 2020-05-28 07:11 | CCD ---
Author Author [facility] Organization [facility] Address Unknown Phone Unavailable Care Team Providers Care President [employer] Name Role Phone Nadeen Castellanos Unavailable PROBLEMS Type Condition ICD9-CM Code MUS20-NH Code Onset Dates Condition S tatus SNOMED Code Notes Problem Other acquired deformities of unspecified foot M21 .6X9 Active 001315129303289 Problem Primary generalized (osteo)arthritis M15.0 Act melina 888888015 Problem Osteoarthritis of knee, unspecified M17.9 Acti ve 799154128 Problem Essential (primary) hypertension I10 Active 17059317 Problem Gastro-esophageal reflux disease with esophagitis K21.0 Active 800922719 Problem Mixed hyperlipidemia E78.2 Active 043486862 Problem Mild intellectual disabilities F70 Active 8 5163270 Problem BMI 45.0-49.9, adult Z68.42 Active 537462774 Problem Daytime somnolence R40.0 Active 812172027715 Problem Allergic rhinitis, unspecified seasonality, unspecifie d trigger J30.9 Active 10130047 Problem Breast cancer screening Z12.39 Active 39307688 1 Problem BMI 40.0-44.9, adult Z68.41 Active 821112585 Problem Postmenopausal bone loss M81.0 Active 2363179 09 Problem Hypothyroidism, unspecified E03.9 Active 4093 0008 Problem Cervical cancer screening declined Z53.20 Activ e 294979407 Problem Primary osteoarthritis of right knee M17.11 Act melina 715192219666080 Problem Morbid (severe) obesity due to excess calories E66 .01 Active 78852505687269 Problem Colon cancer screening Z12.11 Active 425335874 ALLERGIES Allergen (clinical drug ingredient) Drug/Non Drug Allergy do cumented on EMR Reaction Allergy Type Onset Date Status CODIENE UNKNOWN Non Drug Allergy Active ENCOUNTERS from 1960 to 2020-03-09 Encounter Location Date Provider Diagnosis [facility] Shari [address] [place] [address] Feb, Nadeen Castellanos Swelling of finger joint of left hand M2 5.442 IMMUNIZATIONS Vaccine Route Administration Date Status Influenza [...] Notes Total Score: 0 Interpretation: Alcohol Education Hoahaoism: Question Answer Notes Hoahaoism 05 Protestant Sexual Hx: Question Answer Notes Had sex [...] rn cough for 30 days Dec, Active Omeprazole 40 MG 1 capsule once a day orally 30 day(s) or ally bid for 90 day(s) Active Cetirizine HCl 10 MG 1 tablet Orally Once a day for 90 day(s) 2019 Active AmLODIPine Besylate 5 MG 1 tablet Orally Once a day for 30 Days Active Fluticasone Propionate 50 MCG/ACT 1 spray in each nost ril Nasally Once a day for 7 day(s) Nov, Active Debrox 6.5 % 5 drops into each ear Otic Twice a week for 30 Days Oct, Active May Use 1 humidifier in the room J30.9 Daily Mar, Active Lipitor 80 MG 1 tablet Orally Once a day for 30 day(s) Feb, Active Ibuprofen 600 MG 1 tablet with food or milk O rally Three times a day prn pain for 30 days Active Azelastine HCl 0.15 % 1 spray in each nostril Nasally Twice a day Active Chlorthalidone 25 MG 1 tablet in the morning with food Orally Once a day for 30 day(s) Active Levothyroxine Sodium 100 MCG 1 tablet on an empty stom ach in the morning Orally Once a day Active Zofran ODT 4 MG 1 tablet on the tongue and a llow to dissolve Orally q 8 hours prn nausea for 30 day(s) September, Active Diclofenac Sodium 1 % 2gram Transdermal four times daily as needed for 30 Days Active Nystatin 151348 UNIT/GM 1 application topically groi n folds Twice a day for 14 day(s) May, Not-Taking Lisinopril 40 MG 1 tablet once a day orally 3 0 day(s) Orally Once a day for 30 Days Active PROCEDURES No Information RESULTS No Results REASON FOR VISIT refill Ibuprofen 600 mg MEDICAL (GENERAL) HISTORY Type Description Date Medical [...] Information ASSESSMENTS Encounter Date Diagnosis Notes Feb, Swelling of finger joint of left hand (I CD-10 - M25.442) PLAN OF TREATMENT Medication Medication Name Sig Start Date Stop Date Azelastine HCl 0.15 % 1 spray in each nostril Nasally Twice a da y Diclofenac Sodium 1 % 2gram Transdermal four times daily as needed for 30 Days Omeprazole 40 MG 1 capsule once a day orally 30 day(s) or ally bid for 90 day(s) Levothyroxine Sodium 100 MCG 1 tablet on an empty stom ach in the morning Orally Once a day Lipitor 80 MG 1 tablet Orally Once a day for 30 day(s) Feb, Ibuprofen 600 MG 1 tablet with food or milk O rally Three times a day prn pain for 30 days Next Appt Details Provider Name:Sneha Mendez, 2020-05-24 09:30:00 AM, [address] [place] [address], [phone], Provider Name:Nadeen Castellanos, 07-03 11:30:00 AM, [address] [place] [address], [phone], Insurance Providers Payer Name Payer Address Payer Phone Insured Name Patient Relati onship to Insured Coverage Start Date Coverage End Date [facility] [address] [facility] [id number] NAYELI DEAL MEDICAID [employer] [address] [facility] [id number] NAYELI DEAL
--- OUTSIDE RECORDS SUMMARY | 2020-05-28 07:11 | CCD | Continuity of Care Document ---
Author Author Stefani ALMARAZ DPM Organization Unknown Address [address] [place] [address], [address] [place] [address] Phone [phone] Care Team Providers Care Weaving Teacher Name Role Phone Mahin Maravilla M.D. AUTM [phone] Kimberley Lockwood AUTM [phone] Problems Active Problems Provider Date Onychomycosis Lopez Almaraz DPM Onset: 07/31/2016 Hammer toe Lopez Almaraz DPM Onset: 03/09/2019 Bunion Lopez Almaraz DPM Onset: 03/09/2019 Social History Type Date Description Comments Sex Unknown ETOH Use Denies alcohol use Tobacco Use Start: Unknown Patient has never smoked Allergies, Adverse Reactions, Alerts Active Allergies Reaction Severity Comments Date Codeine unknown 07/15/2016 Medications Active Medications SIG Qnty Indications Ordering Provide r Date Ketoconazole 2% Cream apply to feet twice daily 30gm Lopez Almaraz DPM 08/26/2016 Terbinafine HCL 250mg Tablets 1 by mouth every day 60tabs Lopez Almaraz DPM 07/17/2016 Calcium 500 + D Unknown 0 Lipitor Unknown Chlorthalidone Unknown Potassium Chloride Unknown Levothyroxine Sodium Unknown Prilosec Unknown Immunizations Description No Information Available Vital Signs Date Vital Result Comment 07/15/2016 7:36am Height 61 inches 5'1" Weight 231.00 lb BP Systolic 138 mmHg BP Diastolic 82 mmHg Heart Rate 97 /min BMI (Body Mass Index) 43.6 kg/m2 Results Description No Information Available Procedures Description No Information Available Medical Devices Description No Information Available Encounters Type Date Location Provider Dx Diagnosis Office Visit 02/29/2020 1:15p [place] [facility] Lopez Almaraz DPM M21.619 Bunion of unspecified foot L84 Corns and callosities B35.1 Tinea unguium Office Visit 10/27/2019 1:30p [place] [facility] Lopez Almaraz DPM M21.619 Bunion of unspecified foot L84 Corns and callosities Assessments Date Code Description Provider 02/29/2020 M21.619 Bunion of unspecified foot Ananda Almaraz, ROLANDO 02/29/2020 L84 Corns and callosities Lopez Almaraz DPM 02/29/2020 B35.1 Tinea unguium Lopez Almaraz DPM 10/27/2019 M21.619 Bunion of unspecified foot Ananda Almaraz DPM 10/27/2019 L84 Corns and callosities Lopez Almaraz DPM Plan of Treatment Future Appointment(s):* 07/04/2020 1:00 pm - Lopez Almaraz DPM at [facility] Functional Status Description No Information Available Mental Status Description No Information Available Referrals Description No Information Available
--- OUTSIDE RECORDS SUMMARY | 2020-05-28 07:11 | CCD ---
Author Author [facility] Organization [facility] Address Unknown Phone Unavailable Care Team Providers Care Metalsmith Name Role Phone Nadeen Castellanos Unavailable PROBLEMS Type Condition ICD9-CM Code [id number] Code Onset Dates Condition S tatus SNOMED Code Notes Problem Other acquired deformities of unspecified foot M21 .6X9 Active 780248933290945 Problem Primary generalized (osteo)arthritis M15.0 Act melina 994143332 Problem Osteoarthritis of knee, unspecified M17.9 Acti ve 453611441 Problem Essential (primary) hypertension I10 Active 52433137 Problem Gastro-esophageal reflux disease with esophagitis K21.0 Active 070825822 Problem Mixed hyperlipidemia E78.2 Active 505766109 Problem Mild intellectual disabilities F70 Active 8 1364687 Problem BMI 45.0-49.9, adult Z68.42 Active 786500061 Problem Daytime somnolence R40.0 Active 708994942722 Problem Allergic rhinitis, unspecified seasonality, unspecifie d trigger J30.9 Active 73432456 Problem Breast cancer screening Z12.39 Active 29765231 1 Problem BMI 40.0-44.9, adult Z68.41 Active 106874005 Problem Postmenopausal bone loss M81.0 Active 1651664 09 Problem Hypothyroidism, unspecified E03.9 Active 4093 0008 Problem Cervical cancer screening declined Z53.20 Activ e 763653135 Problem Primary osteoarthritis of right knee M17.11 Act melina 100217462954923 Problem Morbid (severe) obesity due to excess calories E66 .01 Active 28599675783771 Problem Colon cancer screening Z12.11 Active 450361291 ALLERGIES Allergen (clinical drug ingredient) Drug/Non Drug Allergy do cumented on EMR Reaction Allergy Type Onset Date Status CODIENE UNKNOWN Non Drug Allergy Active ENCOUNTERS from 1960 to 2020-04-25 Encounter Location Date Provider Diagnosis [facility] Shari [facility] [place] [address] Apr, Nadeen Castellanos Essential (primary) hypertension I10 IMMUNIZATIONS Vaccine Route Administration [...] Notes Total Score: 0 Interpretation: Alcohol Education Gnosticism: Question Answer Notes Gnosticism 05 Latter-Day Sexual Hx: Question Answer Notes Had sex [...] prn cough for 30 days Dec, Active Levothyroxine Sodium 100 MCG 1 tablet on an empty stom ach in the morning Orally Once a day Active Cetirizine HCl 10 MG 1 tablet Orally Once a day for 90 day(s) Nov, Active Debrox 6.5 % 5 drops into each ear Otic Twice a week for 30 Days Oct, Active May Use 1 humidifier in the room J30.9 Daily Mar, Active Fluticasone Propionate 50 MCG/ACT 1 spray in each nost ril Nasally Once a day for 7 day(s) Nov, Active Lisinopril 40 MG 1 tablet once [...] Once a day for 30 Days Active Zofran ODT 4 MG 1 tablet on the tongue and a llow to dissolve Orally q 8 hours prn nausea for 30 day(s) September, Active Nystatin 140611 UNIT/GM 1 application topically groi n folds Twice a day for 14 day(s) May, Not-Taking Lipitor 80 MG 1 tablet Orally Once [...] Information RESULTS No Results REASON FOR VISIT lisinipril MEDICAL (GENERAL) HISTORY Type Description Date Medical [...] Notes Treatment Notes Treatm ent Clinical Notes 16 Apr, 2020 Essential (primary) hypertension (ICD-10 - I10) PLAN OF TREATMENT Medication Medication Name Sig Start Date Stop Date Lisinopril 40 MG 1 tablet once a [...] each nostril Nasally Twice a da y Ibuprofen 600 MG 1 tablet with food or milk O rally Three times a day prn pain for 30 days Omeprazole 40 MG 1 capsule once a day orally 30 day(s) or ally bid for 90 day(s) Lipitor 80 MG 1 tablet Orally Once a day for 30 day(s) Feb, Next Appt Details Provider Name:Sneha Andrea, 2020-05-24 09:30:00 AM, [address] [place] [address], [phone], Provider Name:Nadeen Castellanos, 07-03 11:30:00 AM, [address] [place] [address], [phone], Insurance Providers Payer Name Payer Address Payer Phone Insured Name Patient Relati onship to Insured Coverage Start Date Coverage End Date MEDICAID [employer] [address] [facility] [id number] [address] [facility] [address] [facility] [phone] NAYELI DEAL
--- OUTSIDE RECORDS SUMMARY | 2020-05-28 07:11 | CCD | Continuity of Care Document ---
Author Author Stefani ALMARAZ DPM Organization Unknown Address [address] [place] [address], [address] [place] [address] Phone [phone] Care Team Providers Care Assessment Analyst Name Role Phone Mahin Maravilla M.D. AUTM [phone] Kimberley Lockwood AUTM [phone] Problems Active Problems Provider Date Onychomycosis Lopez [...] Date Location Provider Dx Diagnosis Office Visit 10/27/2019 1:30p [facility] Lopez Almaraz DPM M21.619 Bunion of unspecified foot L84 Corns and callosities Assessments Date Code Description Provider 10/27/2019 M21.619 Bunion of unspecified foot Ananda Almaraz DPM 10/27/2019 L84 Corns and callosities Lopez Almaraz DPM Plan of Treatment Future Appointment(s):* 07/04/2020 1:00 pm - Lopez Almaraz DPM at [facility] Functional Status Description No Information Available Mental Status Description No Information Available Referrals Description No Information Available
--- OUTSIDE RECORDS SUMMARY | 2020-05-28 07:11 | CCD ---
Author Author [facility] Organization [facility] Address Unknown Phone Unavailable Care Team Providers Care Health Information Tech Name Role Phone Nadeen Castellanos Unavailable PROBLEMS Type Condition ICD9-CM Code [id number] Code Onset Dates Condition S tatus SNOMED Code Notes Problem Other acquired deformities of unspecified foot M21 .6X9 Active 844350041926931 Problem Primary generalized (osteo)arthritis M15.0 Act melina 737148494 Problem Osteoarthritis of knee, unspecified M17.9 Acti ve 548467514 Problem Essential (primary) hypertension I10 Active 14196654 Problem Gastro-esophageal reflux disease with esophagitis K21.0 Active 251477164 Problem Mixed hyperlipidemia E78.2 Active 475837438 Problem Mild intellectual disabilities F70 Active 8 3539985 Problem BMI 45.0-49.9, adult Z68.42 Active 656523723 Problem Daytime somnolence R40.0 Active 700309048406 Problem Allergic rhinitis, unspecified seasonality, unspecifie d trigger J30.9 Active 38967380 Problem Breast cancer screening Z12.39 Active 04899943 1 Problem BMI 40.0-44.9, adult Z68.41 Active 398149154 Problem Postmenopausal bone loss M81.0 Active 2316163 09 Problem Hypothyroidism, unspecified E03.9 Active 4093 0008 Problem Cervical cancer screening declined Z53.20 Activ e 516117460 Problem Primary osteoarthritis of right knee M17.11 Act melina 807625981464253 Problem Morbid (severe) obesity due to excess calories E66 .01 Active 26447064092727 Problem Colon cancer screening Z12.11 Active 009647153 ALLERGIES Allergen (clinical drug ingredient) Drug/Non Drug Allergy do cumented on EMR Reaction Allergy Type Onset Date Status CODIENE UNKNOWN Non Drug Allergy Active ENCOUNTERS from 1960 to 2020-03-23 Encounter Location Date Provider Diagnosis [facility] Shari [address] [place] [address] Mar, Nadeen Fierrosharath IMMUNIZATIONS Vaccine Route Administration Date Status Influenza [...] Notes Total Score: 0 Interpretation: Alcohol Education Faith: Question Answer Notes Faith 05 Hinduism Sexual Hx: Question Answer Notes Had sex [...] as needed for 30 Days Active Nystatin 275942 UNIT/GM 1 application topically groi n folds Twice a day for 14 day(s) May, Not-Taking Lisinopril 40 MG 1 tablet once a day orally 3 0 day(s) Orally Once a day for 30 Days Active PROCEDURES No Information RESULTS No Results REASON FOR VISIT referral MEDICAL (GENERAL) HISTORY Type Description Date Medical [...] Details Provider Name:Sneha Andrea, 2020-05-24 09:30:00 AM, [address] [place] [address], [phone], Provider Name:Nadeen Castellanos, 07-03 11:30:00 AM, [address] [place] [address], [phone], Insurance Providers Payer Name Payer Address Payer Phone Insured Name Patient Relati onship to Insured Coverage Start Date Coverage End Date [facility] [address] [facility] [phone] NAYELI DEAL MEDICAID [facility] [employer] [address] [facility] [id number] NAYELI DEAL
--- OUTSIDE RECORDS SUMMARY | 2020-05-28 07:11 | CCD ---
Author Author [facility] Organization [facility] Address Unknown Phone Unavailable Care Team Providers Care Financial Solutions Advisor Name Role Phone Nadeen Castellanos Unavailable PROBLEMS Type Condition ICD9-CM Code [id number] Code Onset Dates Condition S tatus SNOMED Code Notes Problem Other acquired deformities of unspecified foot M21 .6X9 Active 556218131386740 Problem Primary generalized (osteo)arthritis M15.0 Act melina 074056950 Problem Osteoarthritis of knee, unspecified M17.9 Acti ve 052821957 Problem Essential (primary) hypertension I10 Active 69243407 Problem Gastro-esophageal reflux disease with esophagitis K21.0 Active 406233395 Problem Mixed hyperlipidemia E78.2 Active 854042980 Problem Mild intellectual disabilities F70 Active 8 8645047 Problem BMI 45.0-49.9, adult Z68.42 Active 535523656 Problem Daytime somnolence R40.0 Active 793182731848 Problem Allergic rhinitis, unspecified seasonality, unspecifie d trigger J30.9 Active 95856139 Problem Breast cancer screening Z12.39 Active 31568927 1 Problem BMI 40.0-44.9, adult Z68.41 Active 029541818 Problem Postmenopausal bone loss M81.0 Active 3235459 09 Problem Hypothyroidism, unspecified E03.9 Active 4093 0008 Problem Cervical cancer screening declined Z53.20 Activ e 711257526 Problem Primary osteoarthritis of right knee M17.11 Act melina 489674625184656 Problem Morbid (severe) obesity due to excess calories E66 .01 Active 67844780948480 Problem Colon cancer screening Z12.11 Active 811820759 ALLERGIES Allergen (clinical drug ingredient) Drug/Non Drug Allergy do cumented on EMR Reaction Allergy Type Onset Date Status CODIENE UNKNOWN Non Drug Allergy Active ENCOUNTERS from 1960 to 2020-03-08 Encounter Location Date Provider Diagnosis [facility] Shari [address] [place] [address] Feb, Nadeen Castellanos Mixed hyperlipidemia E78.2 IMMUNIZATIONS Vaccine Route Administration Date Status Influenza [...] Notes Total Score: 0 Interpretation: Alcohol Education Anglican: Question Answer Notes Anglican 05 Tenriism Sexual Hx: Question Answer Notes Had sex [...] as needed for 30 Days Active Nystatin 418129 UNIT/GM 1 application topically groi n folds Twice a day for 14 day(s) May, Not-Taking Lisinopril 40 MG 1 tablet once a day orally 3 0 day(s) Orally Once a day for 30 Days Active PROCEDURES No Information RESULTS No Results REASON FOR VISIT lipitor MEDICAL (GENERAL) HISTORY Type Description Date Medical [...] Information ASSESSMENTS Encounter Date Diagnosis Notes Feb, Mixed hyperlipidemia (ICD-10 - E78.2) PLAN OF TREATMENT Medication Medication Name Sig [...] Details Provider Name:Sneha Mendez, 2020-05-24 09:30:00 AM, [address] [place], [address], Provider Name:Nadeen Castellanos, 2- 11:30:00 AM, [address] [place], [address], Insurance Providers Payer Name Payer Address Payer Phone Insured Name Patient Relati onship to Insured Coverage Start Date Coverage End Date [facility] [address] [facility] [phone] NAYELI DEAL MEDICAID [employer] [address] [facility] [id number] NAYELI DEAL
--- OUTSIDE RECORDS SUMMARY | 2020-05-28 07:11 | CCD ---
Author Author [facility] Organization [facility] Address Unknown Phone Unavailable Care Team Providers Care Animal Nurse Name Role Phone Benita Villela Unavailable PROBLEMS Type Condition ICD9-CM Code [id number] Code Onset Dates Condition S tatus SNOMED Code Notes Problem Other acquired deformities of unspecified foot M21 .6X9 Active 481216563426476 Problem Primary generalized (osteo)arthritis M15.0 Act melina 060228047 Problem Osteoarthritis of knee, unspecified M17.9 Acti ve 791131449 Problem Essential (primary) hypertension I10 Active 48573817 Problem Gastro-esophageal reflux disease with esophagitis K21.0 Active 067998422 Problem Mixed hyperlipidemia E78.2 Active 704804391 Problem Mild intellectual disabilities F70 Active 8 2833759 Problem BMI 45.0-49.9, adult Z68.42 Active 794375269 Problem Daytime somnolence R40.0 Active 912577424068 Problem Allergic rhinitis, unspecified seasonality, unspecifie d trigger J30.9 Active 84043880 Problem Breast cancer screening Z12.39 Active 96790625 1 Problem BMI 40.0-44.9, adult Z68.41 Active 738659590 Problem Postmenopausal bone loss M81.0 Active 2016315 09 Problem Hypothyroidism, unspecified E03.9 Active 4093 0008 Problem Cervical cancer screening declined Z53.20 Activ e 029995970 Problem Primary osteoarthritis of right knee M17.11 Act melina 533481993921266 Problem Morbid (severe) obesity due to excess calories E66 .01 Active 45682015185885 Problem Colon cancer screening Z12.11 Active 437617380 ALLERGIES Allergen (clinical drug ingredient) Drug/Non Drug Allergy do cumented on EMR Reaction Allergy Type Onset Date Status CODIENE UNKNOWN Non Drug Allergy Active ENCOUNTERS from 1960 to 2020-03-10 Encounter Location Date Provider Diagnosis [facility] Shari [address] [place] [phone] Nov, Benita Manohar Pharyngitis, unspecified etiology J02.9 IMMUNIZATIONS Vaccine Route Administration Date Status Influenza [...] Education Gnosticism: Question Answer Notes Gnosticism 05 Congregational Sexual Hx: Question Answer Notes Had sex [...] FOR REFERRAL No Information VITAL SIGNS Weight 281.8 lbs Nov, Height 61 in Nov, BMI 53.24 kg/m2 Nov, Heart Rate 105 /min Nov, Respiratory Rate 18 /min Nov, Temperature 97.2 degrees Fahrenheit Nov, Oximetry 95 Nov, Blood pressure systolic 134 mm Hg Nov, Blood pressure diastolic 78 mm Hg Nov, MEDICATIONS Medication SIG (Take, Route, Frequency, Duration) [...] as needed for 30 Days Active Nystatin 952348 UNIT/GM 1 application topically groi n folds Twice a day for 14 day(s) May, Not-Taking Lisinopril 40 MG 1 tablet once a day orally 3 0 day(s) Orally Once a day for 30 Days Active PROCEDURES No Information RESULTS Component Value Reference Range GATS (NEGATIVE STREP SCREEN) Reviewed date:11/25/2019 16:16:52 Interpretation: Performing Lab:[facility], [facility] [address] [facility] [address] , [place] [address] GATS CULTURE (NEG STREP SCR) FULL REPORT IN LAB NOTES (eCW and Medent). GATS CULTURE (NEG STREP SCR) NEGATIVE FOR STREP PYOGENES (GROUP A) GATS CULTURE (NEG STREP SCR) Rapid Strep ([place] Strep A+ ISAAC) Reviewed date:02/16/2020 16:58:52 Interpretation: Performing Lab:[facility], [place] [address] Internal Controls Performed (Y/N) yes Rapid Strep ([place] Strep A+ ISAAC) negative Result (Positive/Negative) negative REASON FOR VISIT sinus congestion MEDICAL (GENERAL) HISTORY Type Description Date Medical [...] No Information ASSESSMENTS Encounter Date Diagnosis Notes Nov, Pharyngitis, unspecified etiology (ICD-1 0 - J02.9) PLAN OF TREATMENT Medication Medication Name Sig [...] a day prn pain for 30 days Treatment Notes Assessment Notes Clinical Notes Pharyngitis, unspecified etiology rapid strep test negative- she should continue symptomatic treatment for now w/ zyrtec, flonase and mucinex. if she develops a new fever, ear pain or sinus congestion she should RTO for re-evaluation Next Appt Details prn Reason: Provider Name:Sneha Mendez, 2020-05-24 09:30:00 AM, [address] [place], [address], Provider Name:Nadeen Castellanos, 07-03 11:30:00 AM, [address] [place], [address], Insurance Providers Payer Name Payer Address Payer Phone Insured Name Patient Relati onship to Insured Coverage Start Date Coverage End Date MEDICAID [employer] [address] [facility] [id number] [address] [facility] [address] [facility] [phone] NAYELI DEAL
--- OUTSIDE RECORDS SUMMARY | 2020-05-28 07:12 | CCD ---
Author Author [facility] Organization [facility] Address Unknown Phone Unavailable Care Team Providers Care Traffic Investigator Name Role Phone Janae ALMARAZ DPM Unavailable Unavailable MAJAK, R SUNDAY DPM Unavailable Unavailable MAJAK, R SUNDAY DPM Unavailable Unavailable MAJAK, R SUNDAY DPM Unavailable Unavailable MAJAK, R SUNDAY DPM Unavailable Unavailable MAJAK, R SUNDAY DPM Unavailable Unavailable MAJAK, R SUNDAY DPM Unavailable Unavailable MAJAK, R SUNDAY DPM Unavailable Unavailable MAJAK, R SUNDAY DPM Unavailable Unavailable MAJAK, R SUNDAY DPM Unavailable Unavailable MAJAK, R SUNDAY DPM Unavailable Unavailable MAJAK, R SUNDAY DPM Unavailable Unavailable MAJAK, R SUNDAY DPM Unavailable Unavailable MAJAK, R SUNDAY DPM Unavailable Unavailable MAJAK, R SUNDAY DPM Unavailable Unavailable MAJAK, R SUNDAY DPM Unavailable Unavailable MAJAK, R SUNDAY DPM Unavailable Unavailable MAJAK, R SUNDAY DPM Unavailable Unavailable MAJAK, R SUNDAY DPM Unavailable Unavailable MAJAK, R SUNDAY DPM Unavailable Unavailable MAJAK, R SUNDAY DPM Unavailable Unavailable MAJAK, R SUNDAY DPM Unavailable Unavailable MAJAK, R SUNDAY DPM Unavailable Unavailable MAJAK, R SUNDAY DPM Unavailable Unavailable MAJAK, R SUNDAY DPM Unavailable Unavailable MAJAK, R SUDNAY DPM Unavailable Unavailable MAJAK, R SUNDAY DPM Unavailable Unavailable MAJAK, R SUNDAY DPM Unavailable Unavailable MAJAK, R SUNDAY DPM Unavailable Unavailable MAJAK, R SUNDAY DPM Unavailable Unavailable MURIEL, ENOC TAWANA TUNNEL FORM PLACING SUPERVISOR-C Unavailable Unavailable MURIEL, ENOC TAWANA TUNNEL FORM PLACING SUPERVISOR-C Unavailable Unavailable MURIEL, ENOC TAWANA TUNNEL FORM PLACING SUPERVISOR-C Unavailable Unavailable MURIEL, ENOC TAWANA TUNNEL FORM PLACING SUPERVISOR-C Unavailable Unavailable MURIEL, ENOC TAWANA TUNNEL FORM PLACING SUPERVISOR-C Unavailable Unavailable MURIEL, ENOC TAWANA TUNNEL FORM PLACING SUPERVISOR-C Unavailable Unavailable MURIEL, ENOC TAWANA TUNNEL FORM PLACING SUPERVISOR-C Unavailable Unavailable MURIEL, ENOC TAWANA TUNNEL FORM PLACING SUPERVISOR-C Unavailable Unavailable MURIEL, ENOC TAWANA TUNNEL FORM PLACING SUPERVISOR-C Unavailable Unavailable MURIEL, ENOC TAWANA TUNNEL FORM PLACING SUPERVISOR-C Unavailable Unavailable MURIEL, ENOC TAWANA TUNNEL FORM PLACING SUPERVISOR-C Unavailable Unavailable MURIEL, ENOC TAWANA TUNNEL FORM PLACING SUPERVISOR-C Unavailable Unavailable MURIEL, ENOC TAWANA TUNNEL FORM PLACING SUPERVISOR-C Unavailable Unavailable MURIEL, ENOC TAWANA TUNNEL FORM PLACING SUPERVISOR-C Unavailable Unavailable MURIEL, ENOC TAWANA TUNNEL FORM PLACING SUPERVISOR-C Unavailable Unavailable DilleCourtney DDS Unavailable Unavailable Dille, E Allison DDS Unavailable Unavailable Dille, E Allison DDS Unavailable Unavailable Dille, E Allison DDS Unavailable Unavailable Re-disclosure Warning The records that you are about to access may contain information from federally-assisted alcohol or drug abuse programs. If such information is present, then the following federally mandated warning applies: This information has been disclosed to you from records protected by federal confidentiality rules (42 CFR part 2). The federal rules prohibit you from making any further disclosure of this information unless further disclosure is expressly permitted by the written consent of the person to whom it pertains or as otherwise permitted by 42 CFR part 2. A general authorization for the release of medical or other information is NOT sufficient for this purpose. The Federal rules restrict any use of the information to criminally investigate or prosecute any alcohol or drug abuse patient.The records that you are about to access may contain highly sensitive health information, the redisclosure of which is protected by Article 27-F of the [facility] Public Health law. If you continue you may have access to information: Regarding HIV / AIDS; Provided by facilities licensed or operated by the [facility] Office of Mental Health; or Provided by the [facility] Office for People With Developmental Disabilities. If such information is present, then the following [facility] mandated warning applies: This information has been disclosed to you from confidential records which are protected by state law. State law prohibits you from making any further disclosure of this information without the specific written consent of the person to whom it pertains, or as otherwise permitted by law. Any unauthorized further disclosure in violation of state law may result in a fine or skilled nursing sentence or both. A general authorization for the release of medical or other information is NOT sufficient authorization for further disc losure. Allergies and Adverse Reactions Type Description Substance Reaction Status Data Source(s ) CODIENE CODIENE CODIENE UNKNOWN Active [facility]CW1 ([facility] CODIENE CODIENE CODIENE UNKNOWN Active eCW1 (Critical access hospital) CODIENE CODIENE CODIENE UNKNOWN Active eCW1 (Critical access hospital) CODIENE CODIENE CODIENE UNKNOWN Active eCW1 (Critical access hospital) CODIENE CODIENE CODIENE UNKNOWN Active eCW1 (Critical access hospital) CODIENE CODIENE CODIENE UNKNOWN Active eCW1 (Critical access hospital) CODIENE CODIENE CODIENE UNKNOWN Active eCW1 (Critical access hospital) Family History Family Member Name Family Member Gender Family Member Status Date o f Status Description Data Source(s) Unknown Unknown Problem MEDENT ([facility] ) Encounters Encounter Providers Location Date Indications Data Source(s ) [facility] [address] [place] [address] 05/24/2020 12:00:00 AM EST eCW1 ([facility]) Unknown [address] [id number] 05/01/2020 12:00:00 AM EST eCW1 ([facility]) Unknown [address] [id number] 04/25/2020 12:00:00 AM EST eCW1 ([facility]) Unknown [address] [address] 03/13/2020 12:00:00 AM EST eCW1 ([facility]) Unknown [address] [id number] 03/08/2020 12:00:00 AM EDT eCW1 ([facility]) Unknown [address] [id number] 03/06/2020 12:00:00 AM EDT eCW1 ([facility]) Outpatient Attender: SUNDAY ALMARAZ [facility] Office 02/09 01:15:00 PM EDT [facility] Out[facility] [address] [id number] 02/29/2020 12:00:00 AM EDT eCW1 ([facility]) Unknown [address] [id number] 02/29/2020 12:00:00 AM EDT eCW1 ([facility]) [place] [address] [facility] [address] 02/28/2020 12:00:00 AM EDT eCW1 ([facility]) [place] [address] [facility] [address] 02/09/2020 12:00:00 AM EDT eCW1 ([facility]) Outpatient Attender: Allison ROBIN 12/23/2019 03:16:01 P M EDT [facility] Outpatient Attender: Allison Breanne MORENOC 12/23/2019 11:34:01 A M EDT [facility] Outpatient Attender: Allison Breanne MORENOC 12/23/2019 11:33:01 A M EDT [facility] Outpatient Attender: Allison Pramodbrittani MALU ROBIN 12/23/2019 11:32:01 A M EDT [facility] Outpatient Attender: Allison Breanne ROBIN 12/23/2019 10:50:00 A M EDT [facility] Outpatient Attender: Allison Pramodbrittani MALU ROBIN 12/21/2019 11:04:00 A M EDT [facility] [place] [address] [facility] [address] 12/20/2019 12:00:00 AM EDT eCW1 ([facility]) [place] [address] [facility] [address] 12/01/2019 12:00:00 AM EDT eCW1 ([facility]) [place] [address] [facility] [address] 11/29/2019 12:00:00 AM EDT eCW1 ([facility]) [place] [address] [facility] [address] 11/25/2019 12:00:00 AM EDT eCW1 ([facility]) [place]patient [address] [facility] [address] 11/24/2019 12:00:00 AM EDT eCW1 ([facility]) [place] [address] [facility] [address] 11/24/2019 12:00:00 AM EDT eCW1 ([facility]) [place] [address] [facility] [address] 11/23/2019 12:00:00 AM EDT eCW1 ([facility]) [place] [address] [facility] [address] 11/23/2019 12:00:00 AM EDT eCW1 ([facility]) Outpatient 11/07/2019 05:10:00 AM EDT [facility] Outpatient Attender: SUNDAY ALMARAZ [facility] Office 10/09 01:30:00 PM EDT [facility] ([facility] [place] [address] [facility] [address] 10/12/2019 12:00:00 AM EDT eCW1 ([facility]) [place] [address] [facility] [address] 10/12/2019 12:00:00 AM EDT eCW1 ([facility]) [place] [address] [facility] [address] 10/12/2019 12:00:00 AM EDT eCW1 ([facility] [address] [facility] [place] [address] 09/27/2019 12:00:00 AM EDT eCW1 ([facility]) [facility] [address] [facility] [address] 09/19/2019 12:00:00 AM EDT eCW1 ([facility]) [facility] [address] [facility] [address] 09/14/2019 12:00:00 AM EDT eCW1 ([facility] [address] [facility] [address] 09/01/2019 12:00:00 AM EDT eCW1 ([facility]) [facility] [address] [facility] [place] [address] 08/30/2019 12:00:00 AM EDT eCW1 ([facility]) [facility] [address] [place] [address], [place] [address] 08/30/2019 12:00:00 AM EDT eCW1 ([facility]) [facility] [address] [place] [address], [place] [address] 08/29/2019 12:00:00 AM EDT eCW1 ([facility]) [facility] [address] [place] [address], [place] [address] 08/16/2019 12:00:00 AM EDT eCW1 ([facility]) [address] [address] 08/15/2019 12:00:00 AM EDT eCW1 ([facility]) [address] [address] 07/28/2019 12:00:00 AM EDT eCW1 ([facility]) [address] [address] 07/21/2019 12:00:00 AM EDT eCW1 ([facility]) [address] [address] 07/18/2019 12:00:00 AM EDT eCW1 ([facility]) [address] [address] 07/18/2019 12:00:00 AM EDT eCW1 ([facility]) Outpatient Attender: SUNDAY ALMARAZ [facility] Office 06/12 12:30:00 PM EST [facility] ([facility] [address] [address] 06/15/2019 12:00:00 AM EST eCW1 ([facility]) [address] [place] [address] 06/15/2019 12:00:00 AM EST eCW1 ([facility]) Outpatient Attender: Allison ROBIN 06/14/2019 09:01:01 P M EST [facility] [address] [place] [address] [place] [address] 05/27/2019 12:00:00 AM EST eCW1 ([facility]) [address] [place] [address] 05/26/2019 12:00:00 AM EST eCW1 ([facility]) [facility] [address] [place] [address] 05/25/2019 12:00:00 AM EST eCW1 ([facility]) [facility] [address] [place] [address] 05/23/2019 12:00:00 AM EST eCW1 ([facility]) [facility] [address] [place] [address] 05/23/2019 12:00:00 AM EST eCW1 ([facility]) [address] [place] [address] 05/16/2019 12:00:00 AM EST eCW1 ([facility]) Outpatient Attender: Allison ROBIN 05/12/2019 12:46:00 P M EST [address] [place] [address] 05/02/2019 12:00:00 AM EST eCW1 ([facility]) [address] [place] [address] 04/27/2019 12:00:00 AM EST eCW1 ([facility]) [address] [place] [address] 04/26/2019 12:00:00 AM EST eCW1 ([facility]) Outpatient Attender: TAWANA Hardy/Jessy/Feliberto/R eindl 04/25/2019 09:45:00 AM EST MEDENT ([facility] [address] [place] [address], [place] [address] 04/22/2019 12:00:00 AM EST eCW1 ([facility]) [facility] [address] [place] [address], [place] [address] 04/20/2019 12:00:00 AM EST eCW1 ([facility]) [facility] [address] [place] [address], [place] [address] 04/20/2019 12:00:00 AM EST eCW1 ([facility]) [facility] [address] [place] [address], [place] [address] 04/14/2019 12:00:00 AM EST eCW1 ([facility]) [address] [address] 04/11/2019 12:00:00 AM EST eCW1 ([facility]) [address] [address] 04/11/2019 12:00:00 AM EST eCW1 ([facility]) [address] [address] 04/06/2019 12:00:00 AM EST eCW1 ([facility]) Outpatient Attender: TAWANA Hardy/Jessy/Feliberto/R eindl 04/01/2019 08:00:00 AM EST MEDENT ([facility]) Immunizations Vaccine Date Status Description Data Source(s) influenza, recombinant, quadrIvalent,injectable, prese rvative free 02/29/2020 10:48:00 AM EDT completed eCW1 ([facility]) influenza, recombinant, quadrIvalent,injectable, prese rvative free 02/29/2020 10:48:00 AM EDT completed eCW1 ([facility]) influenza, recombinant, quadrIvalent,injectable, prese rvative free 02/29/2020 10:48:00 AM EDT completed eCW1 ([facility]) influenza, recombinant, quadrIvalent,injectable, prese rvative free 02/29/2020 10:48:00 AM EDT completed eCW1 ([facility]) influenza, recombinant, quadrIvalent,injectable, prese rvative free 02/29/2020 10:48:00 AM EDT completed eCW1 ([facility]) influenza, recombinant, quadrIvalent,injectable, prese rvative free 02/29/2020 10:48:00 AM EDT completed eCW1 ([facility]) influenza, recombinant, quadrIvalent,injectable, prese rvative free 02/29/2020 10:48:00 AM EDT completed eCW1 ([facility]) influenza, recombinant, quadrIvalent,injectable, prese rvative free 02/29/2020 10:48:00 AM EDT completed eCW1 ([facility]) INFLUENZA VIRUS VACCINE QUADRIVAL [id number](6 MOS AND UP)/PF 02/23/2020 12:00:00 AM EDT completed [facility] influenza, recombinant, quadrIvalent,injectable, prese rvative free 04/20/2019 09:39:00 AM EST completed eCW1 ([facility]) influenza, recombinant, quadrIvalent,injectable, prese rvative free 04/20/2019 09:39:00 AM EST completed eCW1 ([facility]) influenza, recombinant, quadrIvalent,injectable, prese rvative free 04/20/2019 09:39:00 AM EST completed eCW1 ([facility]) influenza, recombinant, quadrIvalent,injectable, prese rvative free 04/20/2019 09:39:00 AM EST completed eCW1 ([facility]) influenza, recombinant, quadrIvalent,injectable, prese rvative free 04/20/2019 09:39:00 AM EST completed eCW1 ([facility]) influenza, recombinant, quadrIvalent,injectable, prese rvative free 04/20/2019 09:39:00 AM EST completed eCW1 ([facility]) influenza, recombinant, quadrIvalent,injectable, prese rvative free 04/20/2019 09:39:00 AM EST completed eCW1 ([facility]) influenza, recombinant, quadrIvalent,injectable, prese rvative free 04/20/2019 09:39:00 AM EST completed eCW1 ([facility]) influenza, recombinant, quadrIvalent,injectable, prese rvative free 04/20/2019 09:39:00 AM EST completed eCW1 ([facility]) influenza, recombinant, quadrIvalent,injectable, prese rvative free 04/20/2019 09:39:00 AM EST completed eCW1 ([facility]) influenza, recombinant, quadrIvalent,injectable, prese rvative free 04/20/2019 09:39:00 AM EST completed eCW1 ([facility]) influenza, recombinant, quadrIvalent,injectable, prese rvative free 04/20/2019 09:39:00 AM EST completed eCW1 ([facility]) influenza, recombinant, quadrIvalent,injectable, prese rvative free 04/20/2019 09:39:00 AM EST completed eCW1 ([facility]) influenza, recombinant, quadrIvalent,injectable, prese rvative free 04/20/2019 09:39:00 AM EST completed eCW1 ([facility]) influenza, recombinant, quadrIvalent,injectable, prese rvative free 04/20/2019 09:39:00 AM EST completed eCW1 ([facility]) influenza, recombinant, quadrIvalent,injectable, prese rvative free 04/20/2019 09:39:00 AM EST completed eCW1 ([facility]) influenza, recombinant, quadrIvalent,injectable, prese rvative free 04/20/2019 09:39:00 AM EST completed eCW1 ([facility]) influenza, recombinant, quadrIvalent,injectable, prese rvative free 04/20/2019 09:39:00 AM EST completed eCW1 ([facility]) influenza, recombinant, quadrIvalent,injectable, prese rvative free 04/20/2019 09:39:00 AM EST completed eCW1 ([facility]) influenza, recombinant, quadrIvalent,injectable, prese rvative free 04/20/2019 09:39:00 AM EST completed eCW1 ([facility]) Medications Medication Brand Name Start Date Product Form Dose Route Admi nistrative Instructions Pharmacy Instructions Status Indications Reaction Description Data Source(s) atorvastatin 80 MG Oral Tablet [Lipitor] Lipitor 80 MG Lipit or 80 MG 02/29/2020 12:00:00 AM EDT 1.0 {tablet} active Li pitor 80 MG eCW1 ([facility]) atorvastatin 80 MG Oral Tablet [Lipitor] Lipitor 80 MG Lipit or 80 MG 02/29/2020 12:00:00 AM EDT 1.0 {tablet} active Li pitor 80 MG eCW1 ([facility]) atorvastatin 80 MG Oral Tablet [Lipitor] Lipitor 80 MG Lipit or 80 MG 02/29/2020 12:00:00 AM EDT 1.0 {tablet} active Li pitor 80 MG eCW1 ([facility]) atorvastatin 80 MG Oral Tablet [Lipitor] Lipitor 80 MG Lipit or 80 MG 02/29/2020 12:00:00 AM EDT 1.0 {tablet} active Li pitor 80 MG eCW1 ([facility]) atorvastatin 80 MG Oral Tablet [Lipitor] Lipitor 80 MG Lipit or 80 MG 02/29/2020 12:00:00 AM EDT 1.0 {tablet} active Li pitor 80 MG eCW1 ([facility]) atorvastatin 80 MG Oral Tablet [Lipitor] Lipitor 80 MG Lipit or 80 MG 02/29/2020 12:00:00 AM EDT 1.0 {tablet} active Li pitor 80 MG eCW1 ([facility]) atorvastatin 80 MG Oral Tablet [Lipitor] Lipitor 80 MG Lipit or 80 MG 02/29/2020 12:00:00 AM EDT 1.0 {tablet} active Li pitor 80 MG eCW1 ([facility]) atorvastatin 80 MG Oral Tablet [Lipitor] Lipitor 80 MG Lipit or 80 MG 02/29/2020 12:00:00 AM EDT 1.0 {tablet} active Li pitor 80 MG eCW1 ([facility]) Fluticasone Propionate 50 MCG/ACT Fluticasone Propionate 50 MCG/ACT 11/24/2019 12:00:00 AM EDT 1.0 {spray_in_each_nostril} acti ve Fluticasone Propionate 50 MCG/ACT eCW1 ([facility]) Fluticasone Propionate 50 MCG/ACT Fluticasone Propionate 50 MCG/ACT 11/24/2019 12:00:00 AM EDT 1.0 {spray_in_each_nostril} acti ve Fluticasone Propionate 50 MCG/ACT eCW1 ([facility]) cetirizine hydrochloride 10 MG Oral Tablet Cetirizine HCl 10 MG Cetirizine HCl 10 MG 11/24/2019 12:00:00 AM EDT 1.0 {tablet} activ e Cetirizine HCl 10 MG eCW1 ([facility]) cetirizine hydrochloride 10 MG Oral Tablet Cetirizine HCl 10 MG Cetirizine HCl 10 MG 11/24/2019 12:00:00 AM EDT 1.0 {tablet} activ e Cetirizine HCl 10 MG eCW1 ([facility]) Fluticasone Propionate 50 MCG/ACT Fluticasone Propionate 50 MCG/ACT 11/24/2019 12:00:00 AM EDT 1.0 {spray_in_each_nostril} acti ve Fluticasone Propionate 50 MCG/ACT eCW1 ([facility]) cetirizine hydrochloride 10 MG Oral Tablet Cetirizine HCl 10 MG Cetirizine HCl 10 MG 11/24/2019 12:00:00 AM EDT 1.0 {tablet} activ e Cetirizine HCl 10 MG eCW1 ([facility]) Fluticasone Propionate 50 MCG/ACT Fluticasone Propionate 50 MCG/ACT 11/24/2019 12:00:00 AM EDT 1.0 {spray_in_each_nostril} acti ve Fluticasone Propionate 50 MCG/ACT eCW1 ([facility]) Fluticasone Propionate 50 MCG/ACT Fluticasone Propionate 50 MCG/ACT 11/24/2019 12:00:00 AM EDT 1.0 {spray_in_each_nostril} acti ve Fluticasone Propionate 50 MCG/ACT eCW1 ([facility]) cetirizine hydrochloride 10 MG Oral Tablet Cetirizine HCl 10 MG Cetirizine HCl 10 MG 11/24/2019 12:00:00 AM EDT 1.0 {tablet} activ e Cetirizine HCl 10 MG eCW1 ([facility]) Fluticasone Propionate 50 MCG/ACT Fluticasone Propionate 50 MCG/ACT 11/24/2019 12:00:00 AM EDT 1.0 {spray_in_each_nostril} acti ve Fluticasone Propionate 50 MCG/ACT eCW1 ([facility]) cetirizine hydrochloride 10 MG Oral Tablet Cetirizine HCl 10 MG Cetirizine HCl 10 MG 11/24/2019 12:00:00 AM EDT 1.0 {tablet} activ e Cetirizine HCl 10 MG eCW1 ([facility]) Fluticasone Propionate 50 MCG/ACT Fluticasone Propionate 50 MCG/ACT 11/24/2019 12:00:00 AM EDT 1.0 {spray_in_each_nostril} acti ve Fluticasone Propionate 50 MCG/ACT eCW1 ([facility]) cetirizine hydrochloride 10 MG Oral Tablet Cetirizine HCl 10 MG Cetirizine HCl 10 MG 11/24/2019 12:00:00 AM EDT 1.0 {tablet} activ e Cetirizine HCl 10 MG eCW1 ([facility]) Fluticasone Propionate 50 MCG/ACT Fluticasone Propionate 50 MCG/ACT 11/24/2019 12:00:00 AM EDT 1.0 {spray_in_each_nostril} acti ve Fluticasone Propionate 50 MCG/ACT eCW1 ([facility]) Fluticasone Propionate 50 MCG/ACT Fluticasone Propionate 50 MCG/ACT 11/24/2019 12:00:00 AM EDT 1.0 {spray_in_each_nostril} acti ve Fluticasone Propionate 50 MCG/ACT eCW1 ([facility]) cetirizine hydrochloride 10 MG Oral Tablet Cetirizine HCl 10 MG Cetirizine HCl 10 MG 11/24/2019 12:00:00 AM EDT 1.0 {tablet} activ e Cetirizine HCl 10 MG eCW1 ([facility]) Fluticasone Propionate 50 MCG/ACT Fluticasone Propionate 50 MCG/ACT 11/24/2019 12:00:00 AM EDT 1.0 {spray_in_each_nostril} acti ve Fluticasone Propionate 50 MCG/ACT eCW1 ([facility]) Fluticasone Propionate 50 MCG/ACT Fluticasone Propionate 50 MCG/ACT 11/24/2019 12:00:00 AM EDT 1.0 {spray_in_each_nostril} acti ve Fluticasone Propionate 50 MCG/ACT eCW1 ([facility]) cetirizine hydrochloride 10 MG Oral Tablet Cetirizine HCl 10 MG Cetirizine HCl 10 MG 11/24/2019 12:00:00 AM EDT 1.0 {tablet} activ e Cetirizine HCl 10 MG eCW1 ([facility]) cetirizine hydrochloride 10 MG Oral Tablet Cetirizine HCl 10 MG Cetirizine HCl 10 MG 11/24/2019 12:00:00 AM EDT 1.0 {tablet} activ e Cetirizine HCl 10 MG eCW1 ([facility]) cetirizine hydrochloride 10 MG Oral Tablet Cetirizine HCl 10 MG Cetirizine HCl 10 MG 11/24/2019 12:00:00 AM EDT 1.0 {tablet} activ e Cetirizine HCl 10 MG eCW1 ([facility]) Fluticasone Propionate 50 MCG/ACT Fluticasone Propionate 50 MCG/ACT 11/24/2019 12:00:00 AM EDT 1.0 {spray_in_each_nostril} acti ve Fluticasone Propionate 50 MCG/ACT eCW1 ([facility]) cetirizine hydrochloride 10 MG Oral Tablet Cetirizine HCl 10 MG Cetirizine HCl 10 MG 11/24/2019 12:00:00 AM EDT 1.0 {tablet} activ e Cetirizine HCl 10 MG eCW1 ([facility]) Fluticasone Propionate 50 MCG/ACT Fluticasone Propionate 50 MCG/ACT 11/24/2019 12:00:00 AM EDT 1.0 {spray_in_each_nostril} acti ve Fluticasone Propionate 50 MCG/ACT eCW1 ([facility]) cetirizine hydrochloride 10 MG Oral Tablet Cetirizine HCl 10 MG Cetirizine HCl 10 MG 11/24/2019 12:00:00 AM EDT 1.0 {tablet} activ e Cetirizine HCl 10 MG eCW1 ([facility]) cetirizine hydrochloride 10 MG Oral Tablet Cetirizine HCl 10 MG Cetirizine HCl 10 MG 11/24/2019 12:00:00 AM EDT 1.0 {tablet} activ e Cetirizine HCl 10 MG eCW1 ([facility]) cetirizine hydrochloride 10 MG Oral Tablet Cetirizine HCl 10 MG Cetirizine HCl 10 MG 11/24/2019 12:00:00 AM EDT 1.0 {tablet} activ e Cetirizine HCl 10 MG eCW1 ([facility]) cetirizine hydrochloride 10 MG Oral Tablet Cetirizine HCl 10 MG Cetirizine HCl 10 MG 11/24/2019 12:00:00 AM EDT 1.0 {tablet} activ e Cetirizine HCl 10 MG eCW1 ([facility]) Fluticasone Propionate 50 MCG/ACT Fluticasone Propionate 50 MCG/ACT 11/24/2019 12:00:00 AM EDT 1.0 {spray_in_each_nostril} acti ve Fluticasone Propionate 50 MCG/ACT eCW1 ([facility]) cetirizine hydrochloride 10 MG Oral Tablet Cetirizine HCl 10 MG Cetirizine HCl 10 MG 11/24/2019 12:00:00 AM EDT 1.0 {tablet} activ e Cetirizine HCl 10 MG eCW1 ([facility]) Fluticasone Propionate 50 MCG/ACT Fluticasone Propionate 50 MCG/ACT 11/24/2019 12:00:00 AM EDT 1.0 {spray_in_each_nostril} acti ve Fluticasone Propionate 50 MCG/ACT eCW1 ([facility]) Fluticasone Propionate 50 MCG/ACT Fluticasone Propionate 50 MCG/ACT 11/24/2019 12:00:00 AM EDT 1.0 {spray_in_each_nostril} acti ve Fluticasone Propionate 50 MCG/ACT eCW1 ([facility]) carbamide peroxide 65 MG/ML Otic Solution [Debrox] Debrox 6. 5 % Debrox 6.5 % 10/12/2019 12:00:00 AM EDT active Debrox 6.5 % eCW1 ([facility]) carbamide peroxide 65 MG/ML Otic Solution [Debrox] Debrox 6. 5 % Debrox 6.5 % 10/12/2019 12:00:00 AM EDT active Debrox 6.5 % eCW1 ([facility]) carbamide peroxide 65 MG/ML Otic Solution [Debrox] Debrox 6. 5 % Debrox 6.5 % 10/12/2019 12:00:00 AM EDT active Debrox 6.5 % eCW1 ([facility]) carbamide peroxide 65 MG/ML Otic Solution [Debrox] Debrox 6. 5 % Debrox 6.5 % 10/12/2019 12:00:00 AM EDT active Debrox 6.5 % eCW1 ([facility]) Diclofenac Sodium 0.01 MG/MG Topical Gel Diclofenac So dium 1 % Diclofenac Sodium 1 % 10/12/2019 12:00:00 AM EDT active Diclofenac Sodium 1 % eCW1 ([facility]) carbamide peroxide 65 MG/ML Otic Solution [Debrox] Debrox 6. 5 % Debrox 6.5 % 10/12/2019 12:00:00 AM EDT active Debrox 6.5 % eCW1 ([facility]) carbamide peroxide 65 MG/ML Otic Solution [Debrox] Debrox 6. 5 % Debrox 6.5 % 10/12/2019 12:00:00 AM EDT active Debrox 6.5 % eCW1 ([facility]) carbamide peroxide 65 MG/ML Otic Solution [Debrox] Debrox 6. 5 % Debrox 6.5 % 10/12/2019 12:00:00 AM EDT active Debrox 6.5 % eCW1 ([facility]) Diclofenac Sodium 0.01 MG/MG Topical Gel Diclofenac So dium 1 % Diclofenac Sodium 1 % 10/12/2019 12:00:00 AM EDT active Diclofenac Sodium 1 % eCW1 ([facility]) carbamide peroxide 65 MG/ML Otic Solution [Debrox] Debrox 6. 5 % Debrox 6.5 % 10/12/2019 12:00:00 AM EDT active Debrox 6.5 % eCW1 ([facility]) carbamide peroxide 65 MG/ML Otic Solution [Debrox] Debrox 6. 5 % Debrox 6.5 % 10/12/2019 12:00:00 AM EDT active Debrox 6.5 % eCW1 ([facility]) Diclofenac Sodium 0.01 MG/MG Topical Gel Diclofenac So dium 1 % Diclofenac Sodium 1 % 10/12/2019 12:00:00 AM EDT active Diclofenac Sodium 1 % eCW1 ([facility]) Diclofenac Sodium 0.01 MG/MG Topical Gel Diclofenac So dium 1 % Diclofenac Sodium 1 % 10/12/2019 12:00:00 AM EDT active Diclofenac Sodium 1 % eCW1 ([facility]) Diclofenac Sodium 0.01 MG/MG Topical Gel Diclofenac So dium 1 % Diclofenac Sodium 1 % 10/12/2019 12:00:00 AM EDT active Diclofenac Sodium 1 % eCW1 ([facility]) carbamide peroxide 65 MG/ML Otic Solution [Debrox] Debrox 6. 5 % Debrox 6.5 % 10/12/2019 12:00:00 AM EDT active Debrox 6.5 % eCW1 ([facility]) Diclofenac Sodium 0.01 MG/MG Topical Gel Diclofenac So dium 1 % Diclofenac Sodium 1 % 10/12/2019 12:00:00 AM EDT active Diclofenac Sodium 1 % eCW1 ([facility]) carbamide peroxide 65 MG/ML Otic Solution [Debrox] Debrox 6. 5 % Debrox 6.5 % 10/12/2019 12:00:00 AM EDT active Debrox 6.5 % eCW1 ([facility]) Diclofenac Sodium 0.01 MG/MG Topical Gel Diclofenac So dium 1 % Diclofenac Sodium 1 % 10/12/2019 12:00:00 AM EDT active Diclofenac Sodium 1 % eCW1 ([facility]) Diclofenac Sodium 0.01 MG/MG Topical Gel Diclofenac So dium 1 % Diclofenac Sodium 1 % 10/12/2019 12:00:00 AM EDT active Diclofenac Sodium 1 % eCW1 ([facility]) carbamide peroxide 65 MG/ML Otic Solution [Debrox] Debrox 6. 5 % Debrox 6.5 % 10/12/2019 12:00:00 AM EDT active Debrox 6.5 % eCW1 ([facility]) Diclofenac Sodium 0.01 MG/MG Topical Gel Diclofenac So dium 1 % Diclofenac Sodium 1 % 10/12/2019 12:00:00 AM EDT active Diclofenac Sodium 1 % eCW1 ([facility]) carbamide peroxide 65 MG/ML Otic Solution [Debrox] Debrox 6. 5 % Debrox 6.5 % 10/12/2019 12:00:00 AM EDT active Debrox 6.5 % eCW1 ([facility]) carbamide peroxide 65 MG/ML Otic Solution [Debrox] Debrox 6. 5 % Debrox 6.5 % 10/12/2019 12:00:00 AM EDT active Debrox 6.5 % eCW1 ([facility]) Diclofenac Sodium 0.01 MG/MG Topical Gel Diclofenac So dium 1 % Diclofenac Sodium 1 % 10/12/2019 12:00:00 AM EDT active Diclofenac Sodium 1 % eCW1 ([facility]) carbamide peroxide 65 MG/ML Otic Solution [Debrox] Debrox 6. 5 % Debrox 6.5 % 10/12/2019 12:00:00 AM EDT active Debrox 6.5 % eCW1 ([facility]) carbamide peroxide 65 MG/ML Otic Solution [Debrox] Debrox 6. 5 % Debrox 6.5 % 10/12/2019 12:00:00 AM EDT active Debrox 6.5 % eCW1 ([facility]) carbamide peroxide 65 MG/ML Otic Solution [Debrox] Debrox 6. 5 % Debrox 6.5 % 10/12/2019 12:00:00 AM EDT active Debrox 6.5 % eCW1 ([facility]) carbamide peroxide 65 MG/ML Otic Solution [Debrox] Debrox 6. 5 % Debrox 6.5 % 10/12/2019 12:00:00 AM EDT active Debrox 6.5 % eCW1 ([facility]) carbamide peroxide 65 MG/ML Otic Solution [Debrox] Debrox 6. 5 % Debrox 6.5 % 10/12/2019 12:00:00 AM EDT active Debrox 6.5 % eCW1 ([facility]) Diclofenac Sodium 0.01 MG/MG Topical Gel Diclofenac So dium 1 % Diclofenac Sodium 1 % 10/12/2019 12:00:00 AM EDT active Diclofenac Sodium 1 % eCW1 ([facility]) Chlorthalidone 25 MG Oral Tablet Chlorthalidone 25 MG 2019 12:00:00 AM EDT active 1 tablet in the m orning with food eCW1 ([facility]) CPAP 06/15/2019 12:00:00 AM EST active MEDENT ([facility], ) Nystatin 837420 UNT/ML Topical Cream Nystatin 355282 U NIT/GM Nystatin 235109 UNIT/GM 05/23/2019 12:00:00 AM EST 1.0 {application} suspended Nystatin 272077 UNIT/GM eCW1 ([facility]) Nystatin 728925 UNT/ML Topical Cream Nystatin 560314 U NIT/GM Nystatin 381928 UNIT/GM 05/23/2019 12:00:00 AM EST 1.0 {application} suspended Nystatin 972641 UNIT/GM eCW1 ([facility]) Nystatin 208136 UNT/ML Topical Cream Nystatin 606227 U NIT/GM Nystatin 263702 UNIT/GM 05/23/2019 12:00:00 AM EST 1.0 {application} suspended Nystatin 012446 UNIT/GM eCW1 ([facility]) Nystatin 711834 UNT/ML Topical Cream Nystatin 219706 U NIT/GM Nystatin 185099 UNIT/GM 05/23/2019 12:00:00 AM EST 1.0 {application} suspended Nystatin 852625 UNIT/GM eCW1 ([facility]) Nystatin 064757 UNT/ML Topical Cream Nystatin 491277 U NIT/GM Nystatin 226792 UNIT/GM 05/23/2019 12:00:00 AM EST 1.0 {application} suspended Nystatin 559356 UNIT/GM eCW1 ([facility]) Nystatin 575259 UNT/ML Topical Cream Nystatin 242625 U NIT/GM Nystatin 968407 UNIT/GM 05/23/2019 12:00:00 AM EST active 1 application eCW1 ([facility]) Nystatin 449464 UNT/ML Topical Cream Nystatin 279303 U NIT/GM Nystatin 141251 UNIT/GM 05/23/2019 12:00:00 AM EST 1.0 {application} suspended Nystatin 758384 UNIT/GM eCW1 ([facility]) Nystatin 926753 UNT/ML Topical Cream Nystatin 734534 U NIT/GM Nystatin 778592 UNIT/GM 05/23/2019 12:00:00 AM EST 1.0 {application} suspended Nystatin 047195 UNIT/GM eCW1 ([facility]) Nystatin 842776 UNT/ML Topical Cream Nystatin 475332 U NIT/GM Nystatin 992348 UNIT/GM 05/23/2019 12:00:00 AM EST 1.0 {application} suspended Nystatin 399307 UNIT/GM eCW1 ([facility]) Nystatin 714460 UNT/ML Topical Cream Nystatin 656804 U NIT/GM Nystatin 839556 UNIT/GM 05/23/2019 12:00:00 AM EST 1.0 {application} suspended Nystatin 913533 UNIT/GM eCW1 ([facility]) Nystatin 789947 UNT/ML Topical Cream Nystatin 422853 U NIT/GM Nystatin 526945 UNIT/GM 05/23/2019 12:00:00 AM EST 1.0 {application} suspended Nystatin 953453 UNIT/GM eCW1 ([facility]) Nystatin 708135 UNT/ML Topical Cream Nystatin 563179 U NIT/GM Nystatin 242979 UNIT/GM 05/23/2019 12:00:00 AM EST active 1 application eCW1 ([facility]) Nystatin 501015 UNT/ML Topical Cream Nystatin 642179 U NIT/GM Nystatin 356492 UNIT/GM 05/23/2019 12:00:00 AM EST 1.0 {application} active Nystatin 631782 UNIT/GM eCW1 ([facility]) Nystatin 465722 UNT/ML Topical Cream Nystatin 141837 U NIT/GM Nystatin 947811 UNIT/GM 05/23/2019 12:00:00 AM EST 1.0 {application} suspended Nystatin 585845 UNIT/GM eCW1 ([facility]) Nystatin 932440 UNT/ML Topical Cream Nystatin 756467 U NIT/GM Nystatin 380779 UNIT/GM 05/23/2019 12:00:00 AM EST 1.0 {application} suspended Nystatin 955449 UNIT/GM eCW1 ([facility]) Nystatin 139834 UNT/ML Topical Cream Nystatin 562991 U NIT/GM Nystatin 625376 UNIT/GM 05/23/2019 12:00:00 AM EST 1.0 {application} suspended Nystatin 685176 UNIT/GM eCW1 ([facility]) Nystatin 260095 UNT/ML Topical Cream Nystatin 833783 U NIT/GM Nystatin 631628 UNIT/GM 05/23/2019 12:00:00 AM EST 1.0 {application} suspended Nystatin 595515 UNIT/GM eCW1 ([facility]) Nystatin 133275 UNT/ML Topical Cream Nystatin 826751 U NIT/GM Nystatin 612469 UNIT/GM 05/23/2019 12:00:00 AM EST 1.0 {application} active Nystatin 557931 UNIT/GM eCW1 ([facility]) Nystatin 852510 UNT/ML Topical Cream Nystatin 155501 U NIT/GM Nystatin 744265 UNIT/GM 05/23/2019 12:00:00 AM EST active 1 application eCW1 ([facility]) Nystatin 313649 UNT/ML Topical Cream Nystatin 144233 U NIT/GM Nystatin 683568 UNIT/GM 05/23/2019 12:00:00 AM EST active 1 application eCW1 ([facility]) Nystatin 007910 UNT/ML Topical Cream Nystatin 671563 U NIT/GM Nystatin 539482 UNIT/GM 05/23/2019 12:00:00 AM EST active 1 application eCW1 ([facility]) Nystatin 753490 UNT/ML Topical Cream Nystatin 850790 U NIT/GM Nystatin 958786 UNIT/GM 05/23/2019 12:00:00 AM EST 1.0 {application} suspended Nystatin 904531 UNIT/GM eCW1 ([facility]) Nystatin 381264 UNT/ML Topical Cream Nystatin 962218 U NIT/GM Nystatin 285541 UNIT/GM 05/23/2019 12:00:00 AM EST 1.0 {application} suspended Nystatin 370082 UNIT/GM eCW1 ([facility]) Nystatin 140156 UNT/ML Topical Cream Nystatin 455187 U NIT/GM Nystatin 589546 UNIT/GM 05/23/2019 12:00:00 AM EST 1.0 {application} active Nystatin 156358 UNIT/GM eCW1 ([facility]) Nystatin 565640 UNT/ML Topical Cream Nystatin 875407 U NIT/GM Nystatin 840581 UNIT/GM 05/23/2019 12:00:00 AM EST active 1 application eCW1 ([facility]) Nystatin 378049 UNT/ML Topical Cream Nystatin 483322 U NIT/GM Nystatin 773029 UNIT/GM 05/23/2019 12:00:00 AM EST active 1 application eCW1 ([facility]) Dextromethorphan HBr 10 MG/5ML UNK 04/20/2019 12:00:00 AM EST suspended 5 ml as needed for cough eCW1 ([facility]) Dextromethorphan HBr 10 MG/5ML UNK 04/20/2019 12:00:00 AM EST active 5 ml as needed for cough eCW1 ([facility]) May Use 1 UNK 04/06/2019 12:00:00 AM EST active May Use 1 eCW1 ([facility]) May Use 1 UNK 04/06/2019 12:00:00 AM EST active May Use 1 eCW1 ([facility]) May Use 1 UNK 04/06/2019 12:00:00 AM EST active May Use 1 eCW1 ([facility]) May Use 1 UNK 04/06/2019 12:00:00 AM EST active May Use 1 eCW1 ([facility]) May Use 1 UNK 04/06/2019 12:00:00 AM EST active May Use 1 eCW1 ([facility]) May Use 1 UNK 04/06/2019 12:00:00 AM EST active May Use 1 eCW1 ([facility]) May Use 1 UNK 04/06/2019 12:00:00 AM EST active May Use 1 eCW1 ([facility]) May Use 1 UNK 04/06/2019 12:00:00 AM EST active May Use 1 eCW1 ([facility]) May Use 1 UNK 04/06/2019 12:00:00 AM EST a ctive humidifier in the room eCW1 ([facility]) May Use 1 UNK 04/06/2019 12:00:00 AM EST a ctive humidifier in the room eCW1 ([facility]) May Use 1 UNK 04/06/2019 12:00:00 AM EST active May Use 1 eCW1 ([facility]) May Use 1 UNK 04/06/2019 12:00:00 AM EST active May Use 1 eCW1 ([facility]) May Use 1 UNK 04/06/2019 12:00:00 AM EST a ctive humidifier in the room eCW1 ([facility]) May Use 1 UNK 04/06/2019 12:00:00 AM EST a ctive humidifier in the room eCW1 ([facility]) May Use 1 UNK 04/06/2019 12:00:00 AM EST active May Use 1 eCW1 ([facility]) May Use 1 UNK 04/06/2019 12:00:00 AM EST a ctive humidifier in the room eCW1 ([facility]) May Use 1 UNK 04/06/2019 12:00:00 AM EST active May Use 1 eCW1 ([facility]) May Use 1 UNK 04/06/2019 12:00:00 AM EST active May Use 1 eCW1 ([facility]) May Use 1 UNK 04/06/2019 12:00:00 AM EST active May Use 1 eCW1 ([facility]) May Use 1 UNK 04/06/2019 12:00:00 AM EST active May Use 1 eCW1 ([facility]) May Use 1 UNK 04/06/2019 12:00:00 AM EST active May Use 1 eCW1 ([facility]) May Use 1 UNK 04/06/2019 12:00:00 AM EST a ctive humidifier in the room eCW1 ([facility]) May Use 1 UNK 04/06/2019 12:00:00 AM EST a ctive humidifier in the room eCW1 ([facility]) May Use 1 UNK 04/06/2019 12:00:00 AM EST a ctive humidifier in the room eCW1 ([facility]) May Use 1 UNK 04/06/2019 12:00:00 AM EST active May Use 1 eCW1 ([facility]) May Use 1 UNK 04/06/2019 12:00:00 AM EST active May Use 1 eCW1 ([facility]) May Use 1 UNK 04/06/2019 12:00:00 AM EST active May Use 1 eCW1 ([facility]) Insurance Providers Payer name Policy type / Coverage type Policy ID Covered alliance party ID Covered alliance party's relationship to kahn Policy Kahn Plan Information [id number] SP [id number] [facility] [id number] SP [id number] [facility] [id number] SP [id number] [facility]) O [id number] S [id number] MEDICAID M [id number] S [id number] [facility] [id number] S [id number] Medicaid S [id number] S [id number] MEDICAID [id number] SP [id number] [facility] Secure Horizons P [id number] S [id number] [facility]([place]) O [id number] S [id number] MEDICARE [id number] SP [id number] Medicaid Dental O [id number] S [id number] ANSI-Medicaid [id number] ANSI-Medicare Part B [id number] ANSI-Not a Secondary Insurance [id number] ANSI-Medicare Part B [id number] ANSI-Not a Secondary Insurance [id number] ANSI-Medicaid [id number] ANSI-Medicare Part B [id number] ANSI-Medicaid [id number] ANSI-Not a Secondary Insurance [id number] ANSI-Not a Secondary Insurance [id number] ANSI-Medicare Part B [id number] ANSI-Medicaid [id number] ANSI-Medicaid [id number] ANSI-Not a Secondary Insurance [id number] ANSI-Medicare Part B [id number] ANSI-Medicare Part B [id number] ANSI-Medicaid [id number] Medicaid Medicaid [id number] Self [id number] [facility] Comm Dual Plan Commercial [id number] Self [id number] ANSI-Medicaid [id number] ANSI-Medicare Part B [id number] Medicaid [place] Medig[place] Part B [id number] Self [id number] [place] Primary [id number] Self [id number] Dual Complete Commercial [id number] Self [id number] ANSI-Medicare Part B [id number] ANSI-Medicaid [id number] ANSI-Medicaid [id number] ANSI-Medicare Part B [id number] ANSI-Medicaid [id number] ANSI-Medicare Part B [id number] ANSI-Medicare Part B [id number] ANSI-Medicaid [id number] ANSI-Medicaid [id number] ANSI-Medicare Part B [id number] Medicaid [place] Medig[place] Part B [id number] Self [id number] Medicare [facility] Medicare Primary [id number] Self [id number] Dual Complete Commercial [id number] Self [id number] ANSI-Medicaid [id number] ANSI-Medicare Part B [id number] ANSI-Medicaid [id number] ANSI-Medicare Part B [id number] MEDICARE [id number] ANSI-Medicaid [id number] ANSI-Medicare Part B [id number] Medicaid Medicaid [id number] Self [id number] [facility] Dual Plan Commercial [id number] Self [id number] ANSI-Medicare Part B [id number] ANSI-Medicaid [id number] ANSI-Medicaid [id number] ANSI-Medicare Part B [id number] ANSI-Medicare Part B [id number] ANSI-Medicaid [id number] ANSI-Medicaid [id number] ANSI-Medicare Part B [id number] ANSI-Medicare Part B [id number] ANSI-Medicaid [id number] ANSI-Medicaid [id number] ANSI-Medicare Part B [id number] Medicaid Medicaid [id number] Self [id number] [facility] Dual Plan Commercial [id number] Self [id number] ANSI-Medicare Part B [id number] ANSI-Medicaid [id number] ANSI-Medicare Part B [id number] ANSI-Medicaid [id number] ANSI-Medicare Part B [id number] ANSI-Medicaid [id number] ANSI-Medicare Part B [id number] ANSI-Medicaid [id number] ANSI-Medicaid [id number] ANSI-Medicare Part B [id number] Medicaid P UNAVAILABLE S UNAVAILA BLE ANSI-Medicare Part B [id number] ANSI-Medicaid [id number] Medicaid Medicaid [id number] Self [id number] [facility] Dual Plan Commercial [id number] Self [id number] MEDICAID [id number] SP [id number] MEDICARE [id number] SP [id number] A Medicare [facility] Medicare Primary [id number] Self [id number] [place] [facility] Part B [id number] Self [id number] Medicaid Medicaid [id number] Self [id number] Medicare Medicare Primary [id number] Self [id number] Medicare [facility] Medicare Primary [id number] Self [id number] Medicaid Medicaid [id number] Self [id number] Medicare Medicare Primary [id number] Self 12 [id number] Medicaid Dental P [id number] S [id number] Medicaid Medicaid [id number] Self [id number] Medicare Medicare Primary [id number] Self [id number] Medicaid Medicaid [id number] Self [id number] Medicare Medicare Primary [id number] Self [id number] Medicaid Medicaid [id number] Self [id number] Medicare Medicare Primary [id number] Self [id number] Medicaid Medicaid [id number] Self [id number] Medicare Medicare Primary [id number] Self [id number] MEDICARE [id number] SP [id number] Medicare P [id number] S [id number] A Medicaid Dental S [id number] S [id number] MEDICARE [id number] SP [id number] Self Pay O [id number] S [id number] Medicaid Dental S [id number] Problems, Conditions, and Diagnoses Code Display Name Description Problem Type Effective Dates Data Source(s) M81.0 733198167 Postmenopausal bone loss Problem 10/12/2019 12:00:00 AM EDT eCW1 ([facility]) Z12.11 [id number] Colon cancer screening Problem 04/20/2019 12 :00:00 AM EST eCW1 ([facility]) E66.01 [id number] Morbid (severe) obesity due to excess c alories Problem 04/20/2019 12:00:00 AM EST [facility]CW1 [facility] [facility] M17.11 [id number] Primary osteoarthritis of right knee P roblem 04/20/2019 12:00:00 AM EST eCW1 ([facility]) Z53.20 [id number] Cervical cancer screening declined Proble m 04/20/2019 12:00:00 AM EST eCW1 ([facility]) Z12.39 [id number] Breast cancer screening Problem 04/20/2019 1 2:00:00 AM EST eCW1 ([facility]) Z12.11 [id number] Colon cancer screening Problem 04/20/2019 12 :00:00 AM EST eCW1 ([facility]) M17.11 [id number] Primary osteoarthritis of right knee P roblem 04/20/2019 12:00:00 AM EST eCW1 ([facility]) Z53.20 [id number] Cervical cancer screening declined Proble m 04/20/2019 12:00:00 AM EST eCW1 ([facility]) E66.01 [id number] Morbid (severe) obesity due to excess c alories Problem 04/20/2019 12:00:00 AM EST eCW1 ([facility]) Z12.39 [id number] Breast cancer screening Problem 04/20/2019 1 2:00:00 AM EST eCW1 ([facility]) Surgeries/Procedures Procedure Description Date Indications Data Source(s) PHYSICIAN TELEPHONE EVALUATION 21-30 MIN 09/14/2019 12 :00:00 AM EDT eCW1 ([facility]) PHYSICIAN TELEPHONE EVALUATION 11-20 MIN 08/30/2019 12 :00:00 AM EDT eCW1 ([facility]) MED NUTRITION INDIV SUBSEQ 07/18/2019 12:00:00 AM EDT eCW1 ([facility]) Office Visit, Est Pt., Level 2 FC 07/18/2019 12:00:00 AM EDT eCW1 ([facility]) Office Visit, Est Pt., Level 4 PC 07/18/2019 12:00:00 AM EDT eCW1 ([facility]) Cervical or vaginal cancer screening; pelvic and clinical br east examination 05/23/2019 12:00:00 AM EST eCW1 ([facility]) RIV4 VACC RECOMBINANT DNA IM 04/20/2019 12:00:00 AM ES T eCW1 ([facility]) Administration of influenza virus vaccine 04/20/2019 1 2:00:00 AM EST eCW1 ([facility]) Results ID Date Data Source [id number] 05/21/2020 06:00:00 AM EST [facility] Name Value Range Interpretation Code Description Data Sharon rce(s) Supporting Document(s) SARS coronavirus 2 RNA Not Detected [facility] This lab was ordered by [facility] and reported by [facility]. ID Date Data Source [id number] 05/14/2020 07:30:00 AM EST [facility] Name Value Range Interpretation Code Description Data Sharon rce(s) Supporting Document(s) SARS coronavirus 2 RNA Not Detected [facility] [place] This lab was ordered by [facility] and reported by [facility]. ID Date Data Source [id number] 05/07/2020 07:35:00 AM EST [facility] Name Value Range Interpretation Code Description Data Sharon rce(s) Supporting Document(s) SARS coronavirus 2 RNA [facility] This lab was ordered by [facility] and reported by [facility]. ID Date Data Source [id number] 04/30/2020 09:30:00 AM EST [facility] Name Value Range Interpretation Code Description Data Sharon rce(s) Supporting Document(s) SARS coronavirus 2 RNA [facility] This lab was ordered by [facility] and reported by [facility]. ID Date Data Source [id number] 04/25/2020 11:38:00 AM EST [facility] Name Value Range Interpretation Code Description Data Sharon rce(s) Supporting Document(s) SARS coronavirus 2 RNA [facility] This lab was ordered by [facility] and reported by [facility]. ID Date Data Source [id number] 04/25/2020 12:00:00 AM EST [facility] Name Value Range Interpretation Code Description Data Sharon rce(s) Supporting Document(s) SARS-CoV2 Rapid Antigen [facility] This lab was ordered by [facility] and reported by [facility]. ID Date Data Source [id number] 04/20/2020 02:42:00 PM EST [facility] Name Value Range Interpretation Code Description Data Sharon rce(s) Supporting Document(s) SARS coronavirus 2 RNA [facility] This lab was ordered by [facility] and reported by [facility]. ID Date Data Source FREE T4 & TSH PANEL 03/01/2020 10:50:16 AM EDT eCW1 ([facility]) Name Value Range Interpretation Code Description Data Sharon rce(s) Supporting Document(s) 1.08 FREE T4 eCW1 ([facility]) FREE T4 1.170 THYROID STIMULATING HORMONE eC W1 ([facility]) THYROID STIMULATING HORMONE ID Date Data Source Rapid Strep ([place] Strep A+ [facility]) 02/16/2020 05:58:52 AM EDT eCW1 ([facility]) Name Value Range Interpretation Code Description Data Sharon rce(s) Supporting Document(s) yes Internal Controls Perform ed (Y/N) eCW1 ([facility]) negative Rapid Strep ([place] Strep A+ ISAAC) eCW1 ([facility]) negative Result (Positive/Negative) eCW 1 ([facility]) ID Date Data Source [id number] 12/23/2019 10:43:08 AM EDT [facility] Patient History Medical History:High blo od pressureHigh cholestrolRefluxhypothyroidSurgical History:No known surgical historyFamily History:Cancer (Mother)Heart disease (Father)Social/Personal History: Smoking Status: never smokerDo you vape? NoCurrent Problems: Dental caries (ICD-521.00) (NNR88-C12.9)Hypothyroidism (ICD-244.9) (CEP73-I62.9)Hypertension (ICD-401.9) (APL40-F33)Problem list reviewed during this update.Current Medications: * ZOFRAN * OMEPRAZOLE * LISINOPRIL * GAVILYTE * CHLORTHALID * CALCIUM/D * AZELASTINE * ATORVASATIN * AMLODIPINE * SYNTHROID * LIPITOR Medication list reviewed during this update.Allergy list reviewed during this update.No known allergies.Patient declined [facility].Past Medical History:(reviewed - no changes required) High blood pressureHigh cholestrolRefluxhypothyroid Dental Chart: Procedures:Type - CDT Code - Description B - (D0274) Bitewings, 4 radiographic images (Performed by Alesia Kee RDH) B - (D1110) Prophylaxis, adult (Performed by Alesia Kee RDH) B - (D0120) Periodic oral evaluation - established patient (Performed by Olesya Sanabria DMD) Chart Alert:Prophy 1 per 6 month periodchild through age 10adult +11next avail has an appt 06/26/2016Exam 1 per 6 month periodnext avail has an appt 12/21/2015FL2 per 6 month periodthrough age 20next avail too oldBWX 4 films per 6 month periodnext avail 12/21/2015Panorex 1 every 3 yearsTaken 06/29/2017Sealants every 5 yearsage 5-15After perio maintenance has beenstarted all prophy's need to be billed code #4910 - 2 times per year Chart Notes:clara (Dec 23 2019 12:11PM): [place]-Fair to GoodAdult prophy, 4BW'sPt states she is brushing bid, but had ran out of TP and floss. Mod calculus sextant 5 otherwise light. Tissue light to mod marginal inflammation it had been almost a year since her last prophy; light bleeding with hand scaling and ultrasonic use. Several watches from previous visits; cont to monitor the mesial of #2. Med Hx reviewed and update per paperwork sent from the [place]. 6 month recall. Exc pt. Alesia Kee RDH by clara (12/23/2019 11:39 AM): ; francheska (Dec 23 2019 3:15PM): [facility](-). CC: none. Reviewed Xrays. Exam: no new caries detected. OCS: WNL, IO/ EO completed, No significant hard findings upon clinical exam.Additional PPE requirements due to COVID-19 in the dental setting, N95, surgical mask, hair covering, gown and shieldPt was cooperative. OHI given Referral: N/A NV:Alesia Clark RDH by francheska (12/23/2019 3:15 PM): Tooth Notes and Watches:- Tooth 12 Watch: mesial of #12DistalAlesia Kee by clara (12/21/2015 11:55 AM): - Tooth 13 Watch: Shruthi Glaser by inocencio (12/08/2014 11:38 AM): - Tooth 15 Watch: MesialAlesia Kee by clara (12/21/2015 11:55 AM): - Tooth 16 Watch: MesAlesia Sandoval by clara (06/29/2017 10:15 AM): - Tooth 2 Note: Holding on treatment.Alesia Kee by clara (06/26/2016 11:10 AM): - Tooth 31 Watch: Shruthi Chamorro by inocencio (12/08/2014 11:40 AM): - Tooth 5 Watch: MesialAlesia Kee by clara (06/26/2016 9:56 AM): - Tooth 6 Watch: DistalAlesia Kee by clara (12/21/2015 11:56 AM): Assessment & Plan Medications:ZOFRANOMEPRAZOLELISINOPRILGAVILYTECHLORTHALIDCALCIUM/DAZELASTINEATOR VASATINAMLODIPINESYNTHROIDLIPITORMedication Changes:Added: * AMLODIPINE* ATORVASATIN* AZELASTINE* CALCIUM/D* CHLORTHALID* GAVILYTE* LISINOPRIL* OMEPRAZOLE* ZOFRANRemoved:* PROTONIXAllergies:No Known Allergies (updated 12/09) Clinical Visit Summary Declined Name Value Range Interpretation Code Description Data Sharon rce(s) Supporting Document(s) ID Date Data Source GATS (NEGATIVE STREP SCREEN) 11/25/2019 05:16:52 AM EDT eCW1 ([facility]) Name Value Range Interpretation Code Description Data Sharon rce(s) Supporting Document(s) FULL REPORT IN LAB NOTES (eCW and [facility]). GATS CULTURE (NEG STREP SCR) eCW1 ([facility]) ID Date Data Source [id number] 10/27/2019 12:00:00 AM EDT [facility] Name Value Range Interpretation Code Description Data Sharon rce(s) Supporting Document(s) 2019-nCoV N XXX Ql MESSI N2 [facility] [place] This lab was ordered by [facility] and reported by [facility]. ID Date Data Source [id number] 04/20/2019 12:00:00 AM EST eCW1 ([facility]) Name Value Range Interpretation Code Description Data Sharon rce(s) Supporting Document(s) Hemoglobin A1c/Hemoglobin.total in Blood 6.4 HEMOGLOBIN A1c eCW1 ([facility]) ID Date Data Source CBC with Differential 04/20/2019 12:00:00 AM EST eCW1 ([facility]) Name Value Range Interpretation Code Description Data Sharon rce(s) Supporting Document(s) 4.50 4.00-5.40 RED BLOOD COUNT eCW1 ([facility] 8.3 4.0-10.0 WHITE BLOOD COUNT eCW1 ([facility]) 11.6 12.0-15.5 HEMOGLOBIN eCW1 ([facility]) 38.2 36.0-47.0 HEMATOCRIT eCW1 ([facility]) 30.4 32.0-36.5 MEAN CORPUSCULAR HGB CONC eCW1 ([facility]) 25.8 27.0-33.0 MEAN CORPUSCULAR HEMOGLOB IN eCW1 ([facility]) 84.9 80.0-96.0 MEAN CORPUSCULAR VOLUME e CW1 ([facility]) 409 150-450 PLATELET COUNT, AUTOMATED eCW1 ([facility]) 16.1 11.5-14.5 RED CELL DISTRIBUTION WID TH eCW1 ([facility]) 74.6 36.0-66.0 NEUTROPHILS % eCW1 ([facility]) 14.7 24.0-44.0 LYMPH % eCW1 ([facility]) 3.2 0.0-3.0 EOS % eCW1 ([facility]) 6.6 0.0-5.0 MONO % eCW1 ([facility]) 0.5 0.0-1.0 BASO % eCW1 ([facility]) 1.2 1.5-5.0 LYMPH # eCW1 ([facility]) 6.2 1.5-8.5 NEUTROPHILS # eCW1 ([facility]) 0.6 0.0-0.8 MONO # eCW1 ([facility]) 0.0 0.0-0.2 BASO # eCW1 ([facility]) 0.3 0.0-0.5 EOS # eCW1 ([facility]) ID Date Data Source LIPID PANEL (CARDIAC RISK) 04/20/2019 12:00:00 AM EST eCW1 ( [facility]) Name Value Range Interpretation Code Description Data Sharon rce(s) Supporting Document(s) Triglyceride [Mass/volume] in Serum or Plasma by calculation 208 <150 TRIGLYCERIDES LEVEL eCW1 ([facility]) Cholesterol in LDL [Mass/volume] in Serum or Plasma by calculation 101 <100 LDL CHOLESTEROL [facility] ([facility]) Cholesterol in HDL [Moles/volume] in Serum or Plasma 50 >40 HDL CHOLESTEROL W1 ([facility]) Cholesterol [Moles/volume] in Serum or Plasma 193 <200 CHOLESTEROL LEVEL W1 ([facility]) 143 NON-HDL-C eCW1 ([facility]) 3.860 <5 CHOLESTEROL RISK RATIO eCW1 ([facility]) ID Date Data Source Comprehensive Metabolic Profile (CMP) 04/20/2019 12:00:00 AM EST eCW1 ([facility]) Name Value Range Interpretation Code Description Data Sharon rce(s) Supporting Document(s) 101 70-100 GLUCOSE, FASTING eCW1 ([facility]) 23 7-18 BLOOD UREA NITROGEN eCW1 ([facility]) 54.5 >45 GLOMERULAR FILTRATION RATE eCW 1 ([facility]) 4.5 3.5-5.1 POTASSIUM SERUM eCW1 ([facility]) 143 136-145 SODIUM LEVEL eCW1 ([facility]) 1.09 0.55-1.30 CREATININE FOR GFR eCW1 ([facility]) 14 7-37 AST/SGOT eCW1 ([facility]) 109 98-107 CHLORIDE LEVEL eCW1 ([facility]) 25 21-32 CARBON DIOXIDE LEVEL eCW1 ([facility]) 9.0 8.8-10.2 CALCIUM LEVEL eCW1 ([facility]) 21 12-78 ALT/SGPT eCW1 ([facility]) 90 45-117 ALKALINE PHOSPHATASE eCW1 ([facility]) 0.3 0.2-1.0 BILIRUBIN,TOTAL eCW1 ([facility]) 7.3 6.4-8.2 TOTAL PROTEIN eCW1 ([facility]) 3.5 3.2-5.2 ALBUMIN eCW1 ([facility]) 0.92 1.00-1.93 ALBUMIN/GLOBULIN RATIO eCW1 ([facility]) ID Date Data Source CPK CREATINE PHOSPHOKINASE 04/20/2019 12:00:00 AM EST eCW1 ( [facility]) Name Value Range Interpretation Code Description Data Sharon rce(s) Supporting Document(s) 80 26-192 CPK CREATINE PHOSPHOKINASE eCW 1 ([facility]) Procedure Social History Code Duration Value Status Description Data Source(s ) Smoking 02/29/2020 12:00:00 AM EDT Never Smoker completed Never S moker eCW1 ([facility]) Smoking 02/29/2020 12:00:00 AM EDT Never Smoker completed Never S moker eCW1 ([facility]) Smoking 02/29/2020 12:00:00 AM EDT Never Smoker completed Never S moker eCW1 ([facility]) Smoking 02/29/2020 12:00:00 AM EDT Never Smoker completed Never S moker eCW1 ([facility]) Smoking 02/29/2020 12:00:00 AM EDT Never Smoker completed Never S moker eCW1 ([facility]) Smoking 02/29/2020 12:00:00 AM EDT Never Smoker completed Never S moker eCW1 ([facility]) Smoking 02/29/2020 12:00:00 AM EDT Never Smoker completed Never S moker eCW1 ([facility]) Smoking 02/29/2020 12:00:00 AM EDT Never Smoker completed Never S moker eCW1 ([facility]) Smoking 11/24/2019 12:00:00 AM EDT Never Smoker completed Never S moker eCW1 ([facility]) Smoking 11/24/2019 12:00:00 AM EDT Never Smoker completed Never S moker eCW1 ([facility]) Smoking 11/24/2019 12:00:00 AM EDT Never Smoker completed Never S moker eCW1 ([facility]) Smoking 11/24/2019 12:00:00 AM EDT Never Smoker completed Never S moker eCW1 ([facility]) Smoking 11/24/2019 12:00:00 AM EDT Never Smoker completed Never S moker eCW1 ([facility]) Smoking 11/24/2019 12:00:00 AM EDT Never Smoker completed Never S moker eCW1 ([facility]) Smoking 11/24/2019 12:00:00 AM EDT Never Smoker completed Never S moker eCW1 ([facility]) Smoking 11/24/2019 12:00:00 AM EDT Never Smoker completed Never S moker eCW1 ([facility]) Smoking 10/12/2019 12:00:00 AM EDT Never Smoker completed Never S moker eCW1 ([facility]) Smoking 10/12/2019 12:00:00 AM EDT Never Smoker completed Never S moker eCW1 ([facility]) Smoking 10/12/2019 12:00:00 AM EDT Never Smoker completed Never S moker eCW1 ([facility]) 07/28/2019 12:00:00 AM EDT Patient has never smoked co mpleted Patient has never smoked MEDENT ([facility] ) Vital Signs ID Date Data Source UNK Name Value Range Interpretation Code Description Data Source(s) Diastolic blood pressure 80 mm[Hg] 80 mm[Hg] eCW1 ([facility]) Systolic blood pressure 120 mm[Hg] 120 mm[Hg] e CW1 ([facility]) Body temperature 97.5 [degF] 97.5 [degF] eCW1 ( [facility]) Respiratory rate 20 /min 20 /min eCW1 ([facility]) Heart rate 88 /min 88 /min eCW1 ([facility]) Body mass index (BMI) [Ratio] 53.84 kg/m2 53.84 kg/m2 W1 ([facility]) Body height 61 [in_i] 61 [in_i] eCW1 ([facility]) Body weight 285 [lb_av] 285 [lb_av] eCW1 ([facility]) Diastolic blood pressure 78 mm[Hg] 78 mm[Hg] eCW1 ([facility]) Systolic blood pressure 134 mm[Hg] 134 mm[Hg] e CW1 ([facility]) Body temperature 97.2 [degF] 97.2 [degF] eCW1 ( [facility]) Respiratory rate 18 /min 18 /min eCW1 ([facility]) Heart rate 105 /min 105 /min eCW1 ([facility]) Body mass index (BMI) [Ratio] 53.24 kg/m2 53.24 kg/m2 eCW1 ([facility]) Body height 61 [in_i] 61 [in_i] eCW1 ([facility]) Body weight 281.8 [lb_av] 281.8 [lb_av] eCW1 ([facility]) Diastolic blood pressure 62 mm[Hg] 62 mm[Hg] eCW1 ([facility]) Systolic blood pressure 124 mm[Hg] 124 mm[Hg] e CW1 ([facility]) Body temperature 97.0 [degF] 97.0 [degF] eCW1 ( [facility]) Respiratory rate 20 /min 20 /min eCW1 ([facility]) Heart rate 102 /min 102 /min eCW1 ([facility]) Body mass index (BMI) [Ratio] 52.37 kg/m2 52.37 kg/m2 eCW1 ([facility]) Body height 61 [in_i] 61 [in_i] eCW1 ([facility]) Body weight 277.2 [lb_av] 277.2 [lb_av] eCW1 ([facility]) Diastolic blood pressure 73 mm[Hg] 73 mm[Hg] eCW1 ([facility]) Systolic blood pressure 117 mm[Hg] 117 mm[Hg] e CW1 ([facility]) Heart rate 85 /min 85 /min eCW1 ([facility]) Body mass index (BMI) [Ratio] 51.79 kg/m2 51.79 kg/m2 eCW1 ([facility]) Body height 61 [in_us] 61 [in_us] eCW1 ([facility]) Body weight Measured 274.1 [lb_av] 274.1 [lb_av ] eCW1 ([facility]) Diastolic blood pressure 89 mm[Hg] 89 mm[Hg] eCW1 ([facility]) Systolic blood pressure 154 mm[Hg] 154 mm[Hg] e CW1 ([facility]) Body mass index (BMI) [Ratio] 51.58 kg/m2 51.58 kg/m2 eCW1 ([facility]) Body height 61 [in_us] 61 [in_us] eCW1 ([facility]) Body weight Measured 273 [lb_av] 273 [lb_av] eC W1 ([facility]) Body weight 126.101 kg 126.[address] [facility] Body mass index (BMI) [Ratio] 54.3 kg/m2 54.3 k g/m2 MEDENT ([facility]) Body weight 278.00 [lb_av] 278.00 [lb_av] MEDEN T ([facility]) Body height 60 [in_i] 60 [[facility]_i] [facility] 5'0" Oxygen saturation in Arterial blood by Pulse oximetry 96 % 96 % [facility] ([facility]) Heart rate 89 /min 89 /min [facility] ([facility]) Diastolic blood pressure 84 mm[Hg] 84 mm[Hg] MEDENT ([facility]) Systolic blood pressure 130 mm[Hg] 130 mm[Hg] M EDENT ([facility]) Body mass index (BMI) [Ratio] 53.47 kg/m2 53.47 kg/m2 W1 ([facility]) Body height 61 [in_us] 61 [in_us] eCW1 ([facility]) Body weight Measured 283 [lb_av] 283 [lb_av] eC W1 ([facility]) Diastolic blood pressure 86 mm[Hg] 86 mm[Hg] eCW1 ([facility]) Systolic blood pressure 142 mm[Hg] 142 mm[Hg] e CW1 ([facility]) Body temperature 97.5 [degF] 97.5 [degF] eCW1 ( [facility]) Respiratory rate 20 /min 20 /min eCW1 ([facility]) Heart rate 110 /min 110 /min eCW1 ([facility] Body mass index (BMI) [Ratio] 53.16 kg/m2 53.16 kg/m2 W1 ([facility]) Body height 61 [in_us] 61 [in_us] eCW1 ([facility]) Body weight Measured 281.4 [lb_av] 281.4 [lb_av ] eCW1 ([facility]) Diastolic blood pressure 76 mm[Hg] 76 mm[Hg] eCW1 ([facility]) Systolic blood pressure 120 mm[Hg] 120 mm[Hg] e CW1 ([facility]) Body temperature 97.5 [degF] 97.5 [degF] eCW1 ( [facility]) Respiratory rate 20 /min 20 /min eCW1 ([facility]) Heart rate 102 /min 102 /min eCW1 ([facility]) Body mass index (BMI) [Ratio] 52.79 kg/m2 52.79 kg/m2 eCW1 ([facility]) Body height 61 [in_us] 61 [in_us] eCW1 ([facility]) Body weight Measured 279.4 [lb_av] 279.4 [lb_av ] eCW1 ([facility]) Diastolic blood pressure 76 mm[Hg] 76 mm[Hg] eCW1 ([facility]) Systolic blood pressure 134 mm[Hg] 134 mm[Hg] e CW1 ([facility]) Body mass index (BMI) [Ratio] 52.33 kg/m2 52.33 kg/m2 eCW1 ([facility]) Body height 61 [in_us] 61 [in_us] eCW1 ([facility]) Body weight Measured 277 [lb_av] 277 [lb_av] eC W1 ([facility]) Body mass index (BMI) [Ratio] 52.71 kg/m2 52.71 kg/m2 eCW1 ([facility]) Body height 61 [in_us] 61 [in_us] eCW1 ([facility]) Body weight Measured 279 [lb_av] 279 [lb_av] eC W1 ([facility]) Body weight 126.554 kg 126.554 kg [facility] Body mass index (BMI) [Ratio] 54.5 kg/m2 54.5 k g/m2 MED[facility] ([facility]) Body weight 279.00 [lb_av] 279.00 [lb_av] MEDEN T ([facility]) Body height 60 [in_i] 60 [in_i] [facility] ([facility]) 5'0" Oxygen saturation in Arterial blood by Pulse oximetry 95 % 95 % [facility]) Heart rate 81 /min 81 /min MED[facility] ([facility]) Diastolic blood pressure 80 mm[Hg] 80 mm[Hg] MED[facility] ([facility]) Systolic blood pressure 117 mm[Hg] 117 mm[Hg] M EDENT ([facility]) Diastolic blood pressure 80 mm[Hg] 80 mm[Hg] eCW1 ([facility]) Systolic blood pressure 132 mm[Hg] 132 mm[Hg] e CW1 ([facility]) Body temperature 97.1 [degF] 97.1 [degF] eCW1 ( [facility]) Respiratory rate 18 /min 18 /min eCW1 ([facility]) Heart rate 107 /min 107 /min eCW1 ([facility]) Body mass index (BMI) [Ratio] 52.64 kg/m2 52.64 kg/m2 eCW1 ([facility]) Body height 61 [in_us] 61 [in_us] eCW1 ([facility]) Body weight Measured 278.6 [lb_av] 278.6 [lb_av ] eCW1 ([facility]) Patient Treatment Plan of Care Planned Activity Planned Date Details Description Data Source (s) atorvastatin 80 MG Oral Tablet [Lipitor] 02/29/2020 12:00:00 AM EDT eCW1 ([facility]) atorvastatin 80 MG Oral Tablet [Lipitor] 02/29/2020 12:00:00 AM EDT eCW1 ([facility]) atorvastatin 80 MG Oral Tablet [Lipitor] 02/29/2020 12:00:00 AM EDT eCW1 ([facility]) atorvastatin 80 MG Oral Tablet [Lipitor] 02/29/2020 12:00:00 AM EDT eCW1 ([facility]) atorvastatin 80 MG Oral Tablet [Lipitor] 02/29/2020 12:00:00 AM EDT eCW1 ([facility]) atorvastatin 80 MG Oral Tablet [Lipitor] 02/29/2020 12:00:00 AM EDT eCW1 ([facility]) atorvastatin 80 MG Oral Tablet [Lipitor] 02/29/2020 12:00:00 AM EDT eCW1 ([facility]) atorvastatin 80 MG Oral Tablet [Lipitor] 02/29/2020 12:00:00 AM EDT eCW1 ([facility]) Fluticasone Propionate 50 MCG/ACT 11/24/2019 12:00:00 AM EDT eCW1 ([facility]) cetirizine hydrochloride 10 MG Oral Tablet 11/24/2019 12:00:00 AM E DT eCW1 ([facility]) Fluticasone Propionate 50 MCG/ACT 11/24/2019 12:00:00 AM EDT eCW1 ([facility]) cetirizine hydrochloride 10 MG Oral Tablet 11/24/2019 12:00:00 AM E DT eCW1 ([facility]) Fluticasone Propionate 50 MCG/ACT 11/24/2019 12:00:00 AM EDT eCW1 ([facility]) cetirizine hydrochloride 10 MG Oral Tablet 11/24/2019 12:00:00 AM E DT eCW1 ([facility]) Fluticasone Propionate 50 MCG/ACT 11/24/2019 12:00:00 AM EDT eCW1 ([facility]) cetirizine hydrochloride 10 MG Oral Tablet 11/24/2019 12:00:00 AM E DT eCW1 ([facility]) Fluticasone Propionate 50 MCG/ACT 11/24/2019 12:00:00 AM EDT eCW1 ([facility]) cetirizine hydrochloride 10 MG Oral Tablet 11/24/2019 12:00:00 AM E DT eCW1 ([facility]) Fluticasone Propionate 50 MCG/ACT 11/24/2019 12:00:00 AM EDT eCW1 ([facility]) cetirizine hydrochloride 10 MG Oral Tablet 11/24/2019 12:00:00 AM E DT eCW1 ([facility]) Fluticasone Propionate 50 MCG/ACT 11/24/2019 12:00:00 AM EDT eCW1 ([facility]) cetirizine hydrochloride 10 MG Oral Tablet 11/24/2019 12:00:00 AM E DT eCW1 ([facility]) Fluticasone Propionate 50 MCG/ACT 11/24/2019 12:00:00 AM EDT eCW1 ([facility]) cetirizine hydrochloride 10 MG Oral Tablet 11/24/2019 12:00:00 AM E DT [facility]CW1 [facility] [facility]) carbamide peroxide 65 MG/ML Otic Solution [Debrox] 10/12/2019 12 :00:00 AM EDT eCW1 ([facility]) Diclofenac Sodium 0.01 MG/MG Topical Gel 10/12/2019 12:00:00 AM EDT eCW1 ([facility]) carbamide peroxide 65 MG/ML Otic Solution [Debrox] 10/12/2019 12 :00:00 AM EDT eCW1 ([facility]) Diclofenac Sodium 0.01 MG/MG Topical Gel 10/12/2019 12:00:00 AM EDT eCW1 ([facility]) carbamide peroxide 65 MG/ML Otic Solution [Debrox] 10/12/2019 12 :00:00 AM EDT eCW1 ([facility]) Diclofenac Sodium 0.01 MG/MG Topical Gel 10/12/2019 12:00:00 AM EDT eCW1 ([facility]) Chlorthalidone 25 MG Oral Tablet 07/18/2019 12:00:00 AM EDT eCW1 ([facility]) Nystatin 845816 UNT/ML Topical Cream 05/23/2019 12:00:00 AM EST eCW1 ([facility]) Nystatin [id number] UNT/ML Topical Cream 05/23/2019 12:00:00 AM EST eCW1 ([facility]) Dextromethorphan HBr 10 MG/5ML 04/20/2019 12:00:00 AM EST eCW1 ([facility]) May Use 1 04/06/2019 12:00:00 AM EST e CW1 ([facility])
[2020-05-28] MEDS: ONDANSETRON 4MG/2ML VIAL IV ONE ×2 (07:29→07:30)
[2020-05-28] MEDS: KETOROLAC 30 MG/ML 1ML VIAL IV ONE ×2 (07:29→07:30)
[2020-05-28] MEDS ORDERED: ROBI1LIQ9 PO (07:34)
[2020-05-28] MEDS ORDERED: CHLO25TA PO (07:34)
[2020-05-28] MEDS ORDERED: VOLT1GEL15 TOP (07:34)
[2020-05-28] MEDS ORDERED: AZEL0.055 NARES (07:34)
[2020-05-28] MEDS ORDERED: ATOR80TA59 PO (07:34)
[2020-05-28] MEDS ORDERED: DEBR6.5S4 AU (07:34)
[2020-05-28 08:10] LABS: BASO # 0.1 10^3/uL (0.0-0.2); BASO % 0.5 % (0.0-1.0); EOS # 0.3 10^3/uL (0.0-0.5); EOS % 2.7 % (0.0-3.0); HEMATOCRIT 38.2 % (36.0-47.0); HEMOGLOBIN 11.4 g/dl (12.0-15.5); LYMPH # 1.4 10^3/uL (1.5-5.0); LYMPH % 11.8 % (24.0-44.0); MEAN CORPUSCULAR HEMOGLOBIN 26.5 pg (27.0-33.0); MEAN CORPUSCULAR HGB CONC 29.8 g/dl (32.0-36.5); MEAN CORPUSCULAR VOLUME 88.8 fl (80.0-96.0); MONO # 0.8 10^3/uL (0.0-0.8); MONO % 6.5 % (0.0-5.0); NEUTROPHILS # 9.5 10^3/uL (1.5-8.5); NEUTROPHILS % 78.2 % (36.0-66.0); PLATELET COUNT, AUTOMATED 386 10^3/uL (150-450); WHITE BLOOD COUNT 12.1 10^3/uL (4.0-10.0)
--- NOTE | 2020-05-28 08:32 | REP ---
INDICATION: abd pain COMPARISON: None. TECHNIQUE: Upright view of the chest with supine and upright views of the abdomen and pelvis. FINDINGS: Frontal upright view of the chest demonstrates no acute cardiopulmonary process or free air below the diaphragm to suspect pneumoperitoneum. Supine and upright views of the abdomen and pelvis demonstrate nonspecific bowel gas pattern without obstruction or perforation. No organomegaly. No abnormal calcifications. Skeletal structures normal for age. IMPRESSION: Nonspecific bowel gas pattern. <Electronically signed by David Connor > 05/28/20 [id number]
[2020-05-28 08:38] LABS: ALBUMIN 3.7 GM/DL (3.2-5.2); ALT/SGPT 19 U/L (12-78); BILIRUBIN,DIRECT < 0.1 MG/DL (0.0-0.2); BILIRUBIN,TOTAL 0.3 MG/DL (0.2-1.0); BLOOD UREA NITROGEN 32 MG/DL (7-18); CALCIUM LEVEL 9.2 MG/DL (8.8-10.2); CARBON DIOXIDE LEVEL 24 MEQ/L (21-32); CHLORIDE LEVEL 107 MEQ/L (98-107); CREATININE FOR GFR 1.19 MG/DL (0.55-1.30); GLOMERULAR FILTRATION RATE 49.1 (>45); GLUCOSE, FASTING 109 MG/DL (70-100); LIPASE 51 U/L (73-393); SODIUM LEVEL 141 MEQ/L (136-145); TOTAL PROTEIN 7.7 GM/DL (6.4-8.2)
--- OUTSIDE RECORDS SUMMARY | 2020-05-28 08:42 | CCD ---
Author Author [facility] Organization [facility] Address Unknown Phone Unavailable Care Team Providers Care Machine Rebuilder Name Role Phone Janae ALMARAZ DPM Unavailable [...] SUNDAY DPM Unavailable Unavailable MURIEL, ENOC TAWANA HYDRO PLANT SITE MANAGER-C Unavailable Unavailable MURIEL, ENOC TAWANA HYDRO PLANT SITE MANAGER-C Unavailable Unavailable MURIEL, ENOC TAWANA HYDRO PLANT SITE MANAGER-C Unavailable Unavailable MURIEL, ENOC TAWANA HYDRO PLANT SITE MANAGER-C Unavailable Unavailable MURIEL, ENOC TAWANA HYDRO PLANT SITE MANAGER-C Unavailable Unavailable MURIEL, ENOC TAWANA HYDRO PLANT SITE MANAGER-C Unavailable Unavailable MURIEL, ENOC TAWANA HYDRO PLANT SITE MANAGER-C Unavailable Unavailable MURIEL, ENOC TAWANA HYDRO PLANT SITE MANAGER-C Unavailable Unavailable MURIEL, ENOC TAWANA HYDRO PLANT SITE MANAGER-C Unavailable Unavailable MURIEL, ENOC TAWANA HYDRO PLANT SITE MANAGER-C Unavailable Unavailable MURIEL, ENOC TAWANA HYDRO PLANT SITE MANAGER-C Unavailable Unavailable MURIEL, ENOC TAWANA HYDRO PLANT SITE MANAGER-C Unavailable Unavailable MURIEL, ENOC TAWANA HYDRO PLANT SITE MANAGER-C Unavailable Unavailable MURIEL, ENOC TAWANA HYDRO PLANT SITE MANAGER-C Unavailable Unavailable MURIEL, ENOC TAWANA HYDRO PLANT SITE MANAGER-C Unavailable Unavailable Dille, E Allison DDS Unavailable [...] is protected by Article 27-F of the [facility] Public Health law. If you continue you may have access to information: Regarding HIV / AIDS; Provided by facilities licensed or operated by the [facility] Office of Mental Health; or Provided by the [facility] Office for People With Developmental Disabilities. If such information is present, then the following [facility] mandated warning applies: This information has been [...] law may result in a fine or intermediate sentence or both. A general authorization for the release of medical or other information is NOT sufficient authorization for further disc losure. Allergies and Adverse Reactions Type Description Substance Reaction Status Data Source(s ) CODIENE CODIENE CODIENE UNKNOWN Active eCW1 ([facility]) CODIENE CODIENE CODIENE UNKNOWN Active eCW1 ([facility]) CODIENE CODIENE CODIENE UNKNOWN Active eCW1 ([facility]) CODIENE CODIENE CODIENE UNKNOWN Active eCW1 ([facility]) CODIENE CODIENE CODIENE UNKNOWN Active eCW1 ([facility]) CODIENE CODIENE CODIENE UNKNOWN Active eCW1 ([facility]) CODIENE CODIENE CODIENE UNKNOWN Active eCW1 ([facility]) Family History Family Member Name Family Member Gender Family Member Status Date o f Status Description Data Source(s) Unknown Unknown Problem MEDENT ([facility], ) Encounters Encounter Providers Location Date Indications Data Source(s ) [facility] [address] [place] [address] 05/24/2020 12:00:00 AM EST eCW1 ([facility]) Unknown [address] [facility] [address] 05/01/2020 12:00:00 AM EST eCW1 ([facility] hospital) Unknown [address] [facility] [address] 04/25/2020 12:00:00 AM EST eCW1 (Critical access hospital) Unknown [address] [facility] [address] 03/13/2020 12:00:00 AM EST eCW1 (Critical access hospital) Unknown [address] [facility] [address] 03/08/2020 12:00:00 AM EDT eCW1 (Critical access hospital) Unknown [address] [facility] [address] 03/06/2020 12:00:00 AM EDT eCW1 (Critical access hospital) Outpatient Attender: SUNDAY ALMARAZ [facility] Office 02/09 01:15:00 PM EDT MEDENT ([facility] Outpatient [address] [facility] [address] 02/29/2020 12:00:00 AM EDT eCW1 (Critical access hospital) Unknown [address] [facility] [address] 02/29/2020 12:00:00 AM EDT eCW1 (Critical access hospital) [place] [address] [facility] [place] [address] 02/28/2020 12:00:00 AM EDT eCW1 ([facility]) Unknown [address] [facility] [address] 02/09/2020 12:00:00 AM EDT eCW1 ([facility]) Outpatient Attender: Allison Breanne ROBIN 12/23/2019 03:16:01 P M EDT [facility] Outpatient Attender: Allison Pramodbrittani MALU MORENO 12/23/2019 11:34:01 A M EDT [facility] Outpatient Attender: Allison Breanne MORENO 12/23/2019 11:33:01 A M EDT [facility] Outpatient Attender: Allison Pramodbrittani MALU MORENO 12/23/2019 11:32:01 A M EDT [facility] Outpatient Attender: Allison Breanne ROBIN 12/23/2019 10:50:00 A M EDT [facility] Outpatient Attender: Allison Pramodbrittani MALU MORENO 12/21/2019 11:04:00 A M EDT [facility] [place] [address] [facility] [address] 12/20/2019 12:00:00 AM EDT eCW1 ([facility]) Unknown [address] [facility] [address] 12/01/2019 12:00:00 AM EDT eCW1 ([facility]) Unknown [address] [facility] [address] 11/29/2019 12:00:00 AM EDT eCW1 ([facility]) Unknown [address] [facility] [address] 11/25/2019 12:00:00 AM EDT eCW1 ([facility]) Outpatient [address] [facility] [address] 11/24/2019 12:00:00 AM EDT eCW1 ([facility]) Unknown [address] [facility] [address] 11/24/2019 12:00:00 AM EDT eCW1 ([facility]) Unknown [address] [facility] [address] 11/23/2019 12:00:00 AM EDT [facility]CW1 [facility] [place] [address] [facility] [address] 11/23/2019 12:00:00 AM EDT eCW1 [facility]) Outpatient 11/07/2019 05:10:00 AM EDT [facility] Imaging Outpatient Attender: SUNDAY ALMARAZ [facility] Office 10/09 01:30:00 PM EDT MED[facility] ([facility] Outpatient [address] [facility] [address] 10/12/2019 12:00:00 AM EDT eCW1 [facility] Unknown [address] [facility] [address] 10/12/2019 12:00:00 AM EDT eCW1 ([facility]) Unknown [address] [facility] [address] 10/12/2019 12:00:00 AM EDT eCW1 ([facility]) [facility] [address] [facility] [address] 09/27/2019 12:00:00 AM EDT eCW1 ([facility]) [facility] [address] [facility] [address] 09/19/2019 12:00:00 AM EDT eCW1 ([facility]) [facility] [address] [facility] [address] 09/14/2019 12:00:00 AM EDT eCW1 ([facility]) [facility] [address] [facility] [address] 09/01/2019 12:00:00 AM EDT eCW1 ([facility]) [facility] [address] [facility] [address] 08/30/2019 12:00:00 AM EDT eCW1 ([facility]) [address] [address] 08/30/2019 12:00:00 AM EDT eCW1 ([facility]) [address] [address] 08/29/2019 12:00:00 AM EDT eCW1 ([facility]) [address] [address] 08/16/2019 12:00:00 AM EDT eCW1 ([facility]) [address] [address] 08/15/2019 12:00:00 AM EDT eCW1 ([facility]) [address] [address] 07/28/2019 12:00:00 AM EDT eCW1 ([facility]) [address] [address] 07/21/2019 12:00:00 AM EDT eCW1 ([facility]) [address] [address] 07/18/2019 12:00:00 AM EDT eCW1 ([facility]) [address] [address] 07/18/2019 12:00:00 AM EDT eCW1 ([facility]) Outpatient Attender: SUNDAY ALMARAZ [facility] Office 06/12 12:30:00 PM EST [facility] ([facility] [address] [address] 06/15/2019 12:00:00 AM EST eCW1 ([facility] [address] [address] 06/15/2019 12:00:00 AM EST [facility] Outpatient Attender: Allison ROBIN 06/14/2019 09:01:01 P M EST [facility] [address] [place] [address] [place] [address] 05/27/2019 12:00:00 AM EST [facility]CW1 [facility]) [address] [address] 05/26/2019 12:00:00 AM EST [facility]CW1 [facility]) [facility] [address] [place] [address] 05/25/2019 12:00:00 AM EST eCW1 ([facility]) [facility] [address] [place] [address] 05/23/2019 12:00:00 AM EST eCW1 ([facility]) [facility] [address] [place] [address] 05/23/2019 12:00:00 AM EST eCW1 ([facility]) [address] [place] [address] 05/16/2019 12:00:00 AM EST [facility]CW1 [facility]) Outpatient Attender: Allison ROBIN 05/12/2019 12:46:00 P M EST [address] [place] [address] 05/02/2019 12:00:00 AM EST eCW1 ([facility]) [address] [place] [address] 04/27/2019 12:00:00 AM EST eCW1 ([facility]) [address] [place] [address] 04/26/2019 12:00:00 AM EST eCW1 (Critical access hospital) Outpatient Attender: TAWANA Hardy/Jessy/Feliberto/R eindl 04/25/2019 09:45:00 AM EST MED[facility] ([facility] [address] [place] [address], [place] [address] 04/22/2019 12:00:00 AM EST eCW1 (Critical access hospital) [facility] [address] [place] [address], [place] [address] 04/20/2019 12:00:00 AM EST eCW1 (Critical access hospital) [facility] [address] [place] [address], [place] [address] 04/20/2019 12:00:00 AM EST eCW1 (Critical access hospital) [facility] [address] [place] [address], [place] [address] 04/14/2019 12:00:00 AM EST eCW1 (Critical access hospital) [facility] [address] [place] [address], [place] [address] 04/11/2019 12:00:00 AM EST eCW1 (Critical access hospital) [address] [address] 04/11/2019 12:00:00 AM EST eCW1 (Critical access hospital) [address] [address] 04/06/2019 12:00:00 AM EST eCW1 (Critical access hospital) Outpatient Attender: TAWANA Hardy/Jessy/Feliberto/R eindl 04/01/2019 08:00:00 AM EST MEDENT ([facility]) Immunizations Vaccine Date Status Description Data Source(s) influenza, recombinant, quadrIvalent,injectable, prese rvative free 02/29/2020 10:48:00 AM EDT completed eCW1 ([facility]) influenza, recombinant, quadrIvalent,injectable, prese rvative free 02/29/2020 10:48:00 AM EDT completed eCW1 ([facility]) influenza, recombinant, quadrIvalent,injectable, prese rvative free 02/29/2020 10:48:00 AM EDT completed eCW1 ([facility]) influenza, recombinant, quadrIvalent,injectable, prese rvative free 02/29/2020 10:48:00 AM EDT completed eCW1 ([facility]) influenza, recombinant, quadrIvalent,injectable, prese rvative free 02/29/2020 10:48:00 AM EDT completed eCW1 ([facility]) influenza, recombinant, quadrIvalent,injectable, prese rvative free 02/29/2020 10:48:00 AM EDT completed eCW1 ([facility]) influenza, recombinant, quadrIvalent,injectable, prese rvative free 02/29/2020 10:48:00 AM EDT completed eCW1 ([facility]) influenza, recombinant, quadrIvalent,injectable, prese rvative free 02/29/2020 10:48:00 AM EDT completed eCW1 ([facility]) INFLUENZA VIRUS VACCINE QUADRIVAL (6 MOS AND UP)/PF 02/23/2020 12:00:00 AM EDT completed [facility] influenza, recombinant, quadrIvalent,injectable, prese rvative free 04/20/2019 09:39:00 AM EST completed eCW1 ([facility]) influenza, recombinant, quadrIvalent,injectable, prese rvative free 04/20/2019 09:39:00 AM EST completed eCW1 ([facility]) influenza, recombinant, quadrIvalent,injectable, prese rvative free 04/20/2019 09:39:00 AM EST completed eCW1 ([facility]) influenza, recombinant, quadrIvalent,injectable, prese rvative free 04/20/2019 09:39:00 AM EST completed eCW1 ([facility]) influenza, recombinant, quadrIvalent,injectable, prese rvative free 04/20/2019 09:39:00 AM EST completed eCW1 ([facility]) influenza, recombinant, quadrIvalent,injectable, prese rvative free 04/20/2019 09:39:00 AM EST completed eCW1 ([facility]) influenza, recombinant, quadrIvalent,injectable, prese rvative free 04/20/2019 09:39:00 AM EST completed eCW1 ([facility]) influenza, recombinant, quadrIvalent,injectable, prese rvative free 04/20/2019 09:39:00 AM EST completed eCW1 ([facility]) influenza, recombinant, quadrIvalent,injectable, prese rvative free 04/20/2019 09:39:00 AM EST completed eCW1 ([facility]) influenza, recombinant, quadrIvalent,injectable, prese rvative free 04/20/2019 09:39:00 AM EST completed eCW1 ([facility]) influenza, recombinant, quadrIvalent,injectable, prese rvative free 04/20/2019 09:39:00 AM EST completed eCW1 ([facility]) influenza, recombinant, quadrIvalent,injectable, prese rvative free 04/20/2019 09:39:00 AM EST completed eCW1 ([facility]) influenza, recombinant, quadrIvalent,injectable, prese rvative free 04/20/2019 09:39:00 AM EST completed eCW1 ([facility]) influenza, recombinant, quadrIvalent,injectable, prese rvative free 04/20/2019 09:39:00 AM EST completed eCW1 ([facility]) influenza, recombinant, quadrIvalent,injectable, prese rvative free 04/20/2019 09:39:00 AM EST completed eCW1 ([facility]) influenza, recombinant, quadrIvalent,injectable, prese rvative free 04/20/2019 09:39:00 AM EST completed eCW1 ([facility]) influenza, recombinant, quadrIvalent,injectable, prese rvative free 04/20/2019 09:39:00 AM EST completed eCW1 ([facility]) influenza, recombinant, quadrIvalent,injectable, prese rvative free 04/20/2019 09:39:00 AM EST completed eCW1 ([facility]) influenza, recombinant, quadrIvalent,injectable, prese rvative free 04/20/2019 09:39:00 AM EST completed eCW1 ([facility]) influenza, recombinant, quadrIvalent,injectable, prese rvative free 04/20/2019 09:39:00 AM EST completed eCW1 ([facility]) Medications Medication Brand Name Start Date Product Form Dose Route Admi nistrative Instructions Pharmacy Instructions Status Indications Reaction Description Data Source(s) atorvastatin 80 MG Oral Tablet [Lipitor] Lipitor 80 MG Lipit or 80 MG 02/29/2020 12:00:00 AM EDT 1.0 {tablet} active Li pitor 80 MG eCW1 ([facility]) atorvastatin 80 MG Oral Tablet [Lipitor] Lipitor 80 MG Lipit or 80 MG 02/29/2020 12:00:00 AM EDT 1.0 {tablet} active Li pitor 80 MG eCW1 ([facility]) atorvastatin 80 MG Oral Tablet [Lipitor] Lipitor 80 MG Lipit or 80 MG 02/29/2020 12:00:00 AM EDT 1.0 {tablet} active Li pitor 80 MG eCW1 ([facility]) atorvastatin 80 MG Oral Tablet [Lipitor] Lipitor 80 MG Lipit or 80 MG 02/29/2020 12:00:00 AM EDT 1.0 {tablet} active Li pitor 80 MG eCW1 ([facility]) atorvastatin 80 MG Oral Tablet [Lipitor] Lipitor 80 MG Lipit or 80 MG 02/29/2020 12:00:00 AM EDT 1.0 {tablet} active Li pitor 80 MG eCW1 ([facility]) atorvastatin 80 MG Oral Tablet [Lipitor] Lipitor 80 MG Lipit or 80 MG 02/29/2020 12:00:00 AM EDT 1.0 {tablet} active Li pitor 80 MG eCW1 ([facility]) atorvastatin 80 MG Oral Tablet [Lipitor] Lipitor 80 MG Lipit or 80 MG 02/29/2020 12:00:00 AM EDT 1.0 {tablet} active Li pitor 80 MG eCW1 ([facility]) atorvastatin 80 MG Oral Tablet [Lipitor] Lipitor 80 MG Lipit or 80 MG 02/29/2020 12:00:00 AM EDT 1.0 {tablet} active Li pitor 80 MG eCW1 ([facility]) Fluticasone Propionate 50 MCG/ACT Fluticasone Propionate 50 MCG/ACT 11/24/2019 12:00:00 AM EDT 1.0 {spray_in_each_nostril} acti ve Fluticasone Propionate 50 MCG/ACT eCW1 ([facility]) Fluticasone Propionate 50 MCG/ACT Fluticasone Propionate 50 MCG/ACT 11/24/2019 12:00:00 AM EDT 1.0 {spray_in_each_nostril} acti ve Fluticasone Propionate 50 MCG/ACT eCW1 ([facility]) cetirizine hydrochloride 10 MG Oral Tablet Cetirizine HCl 10 MG Cetirizine HCl 10 MG 11/24/2019 12:00:00 AM EDT 1.0 {tablet} activ e Cetirizine HCl 10 MG eCW1 ([facility]) cetirizine hydrochloride 10 MG Oral Tablet Cetirizine HCl 10 MG Cetirizine HCl 10 MG 11/24/2019 12:00:00 AM EDT 1.0 {tablet} activ e Cetirizine HCl 10 MG eCW1 ([facility]) Fluticasone Propionate 50 MCG/ACT Fluticasone Propionate 50 MCG/ACT 11/24/2019 12:00:00 AM EDT 1.0 {spray_in_each_nostril} acti ve Fluticasone Propionate 50 MCG/ACT eCW1 ([facility]) cetirizine hydrochloride 10 MG Oral Tablet Cetirizine HCl 10 MG Cetirizine HCl 10 MG 11/24/2019 12:00:00 AM EDT 1.0 {tablet} activ e Cetirizine HCl 10 MG eCW1 ([facility]) Fluticasone Propionate 50 MCG/ACT Fluticasone Propionate 50 MCG/ACT 11/24/2019 12:00:00 AM EDT 1.0 {spray_in_each_nostril} acti ve Fluticasone Propionate 50 MCG/ACT eCW1 ([facility]) Fluticasone Propionate 50 MCG/ACT Fluticasone Propionate 50 MCG/ACT 11/24/2019 12:00:00 AM EDT 1.0 {spray_in_each_nostril} acti ve Fluticasone Propionate 50 MCG/ACT eCW1 ([facility]) cetirizine hydrochloride 10 MG Oral Tablet Cetirizine HCl 10 MG Cetirizine HCl 10 MG 11/24/2019 12:00:00 AM EDT 1.0 {tablet} activ e Cetirizine HCl 10 MG eCW1 ([facility]) Fluticasone Propionate 50 MCG/ACT Fluticasone Propionate 50 MCG/ACT 11/24/2019 12:00:00 AM EDT 1.0 {spray_in_each_nostril} acti ve Fluticasone Propionate 50 MCG/ACT eCW1 ([facility]) cetirizine hydrochloride 10 MG Oral Tablet Cetirizine HCl 10 MG Cetirizine HCl 10 MG 11/24/2019 12:00:00 AM EDT 1.0 {tablet} activ e Cetirizine HCl 10 MG eCW1 ([facility]) Fluticasone Propionate 50 MCG/ACT Fluticasone Propionate 50 MCG/ACT 11/24/2019 12:00:00 AM EDT 1.0 {spray_in_each_nostril} acti ve Fluticasone Propionate 50 MCG/ACT eCW1 ([facility]) cetirizine hydrochloride 10 MG Oral Tablet Cetirizine HCl 10 MG Cetirizine HCl 10 MG 11/24/2019 12:00:00 AM EDT 1.0 {tablet} activ e Cetirizine HCl 10 MG eCW1 ([facility]) Fluticasone Propionate 50 MCG/ACT Fluticasone Propionate 50 MCG/ACT 11/24/2019 12:00:00 AM EDT 1.0 {spray_in_each_nostril} acti ve Fluticasone Propionate 50 MCG/ACT eCW1 ([facility]) Fluticasone Propionate 50 MCG/ACT Fluticasone Propionate 50 MCG/ACT 11/24/2019 12:00:00 AM EDT 1.0 {spray_in_each_nostril} acti ve Fluticasone Propionate 50 MCG/ACT eCW1 ([facility]) cetirizine hydrochloride 10 MG Oral Tablet Cetirizine HCl 10 MG Cetirizine HCl 10 MG 11/24/2019 12:00:00 AM EDT 1.0 {tablet} activ e Cetirizine HCl 10 MG eCW1 ([facility]) Fluticasone Propionate 50 MCG/ACT Fluticasone Propionate 50 MCG/ACT 11/24/2019 12:00:00 AM EDT 1.0 {spray_in_each_nostril} acti ve Fluticasone Propionate 50 MCG/ACT eCW1 ([facility]) Fluticasone Propionate 50 MCG/ACT Fluticasone Propionate 50 MCG/ACT 11/24/2019 12:00:00 AM EDT 1.0 {spray_in_each_nostril} acti ve Fluticasone Propionate 50 MCG/ACT eCW1 ([facility]) cetirizine hydrochloride 10 MG Oral Tablet Cetirizine HCl 10 MG Cetirizine HCl 10 MG 11/24/2019 12:00:00 AM EDT 1.0 {tablet} activ e Cetirizine HCl 10 MG eCW1 ([facility]) cetirizine hydrochloride 10 MG Oral Tablet Cetirizine HCl 10 MG Cetirizine HCl 10 MG 11/24/2019 12:00:00 AM EDT 1.0 {tablet} activ e Cetirizine HCl 10 MG eCW1 ([facility]) cetirizine hydrochloride 10 MG Oral Tablet Cetirizine HCl 10 MG Cetirizine HCl 10 MG 11/24/2019 12:00:00 AM EDT 1.0 {tablet} activ e Cetirizine HCl 10 MG eCW1 ([facility]) Fluticasone Propionate 50 MCG/ACT Fluticasone Propionate 50 MCG/ACT 11/24/2019 12:00:00 AM EDT 1.0 {spray_in_each_nostril} acti ve Fluticasone Propionate 50 MCG/ACT eCW1 ([facility]) cetirizine hydrochloride 10 MG Oral Tablet Cetirizine HCl 10 MG Cetirizine HCl 10 MG 11/24/2019 12:00:00 AM EDT 1.0 {tablet} activ e Cetirizine HCl 10 MG eCW1 ([facility]) Fluticasone Propionate 50 MCG/ACT Fluticasone Propionate 50 MCG/ACT 11/24/2019 12:00:00 AM EDT 1.0 {spray_in_each_nostril} acti ve Fluticasone Propionate 50 MCG/ACT eCW1 ([facility]) cetirizine hydrochloride 10 MG Oral Tablet Cetirizine HCl 10 MG Cetirizine HCl 10 MG 11/24/2019 12:00:00 AM EDT 1.0 {tablet} activ e Cetirizine HCl 10 MG eCW1 ([facility]) cetirizine hydrochloride 10 MG Oral Tablet Cetirizine HCl 10 MG Cetirizine HCl 10 MG 11/24/2019 12:00:00 AM EDT 1.0 {tablet} activ e Cetirizine HCl 10 MG eCW1 ([facility]) cetirizine hydrochloride 10 MG Oral Tablet Cetirizine HCl 10 MG Cetirizine HCl 10 MG 11/24/2019 12:00:00 AM EDT 1.0 {tablet} activ e Cetirizine HCl 10 MG eCW1 ([facility]) cetirizine hydrochloride 10 MG Oral Tablet Cetirizine HCl 10 MG Cetirizine HCl 10 MG 11/24/2019 12:00:00 AM EDT 1.0 {tablet} activ e Cetirizine HCl 10 MG eCW1 ([facility]) Fluticasone Propionate 50 MCG/ACT Fluticasone Propionate 50 MCG/ACT 11/24/2019 12:00:00 AM EDT 1.0 {spray_in_each_nostril} acti ve Fluticasone Propionate 50 MCG/ACT eCW1 ([facility]) cetirizine hydrochloride 10 MG Oral Tablet Cetirizine HCl 10 MG Cetirizine HCl 10 MG 11/24/2019 12:00:00 AM EDT 1.0 {tablet} activ e Cetirizine HCl 10 MG eCW1 ([facility]) Fluticasone Propionate 50 MCG/ACT Fluticasone Propionate 50 MCG/ACT 11/24/2019 12:00:00 AM EDT 1.0 {spray_in_each_nostril} acti ve Fluticasone Propionate 50 MCG/ACT eCW1 ([facility]) Fluticasone Propionate 50 MCG/ACT Fluticasone Propionate 50 MCG/ACT 11/24/2019 12:00:00 AM EDT 1.0 {spray_in_each_nostril} acti ve Fluticasone Propionate 50 MCG/ACT eCW1 ([facility]) carbamide peroxide 65 MG/ML Otic Solution [Debrox] Debrox 6. 5 % Debrox 6.5 % 10/12/2019 12:00:00 AM EDT active Debrox 6.5 % eCW1 ([facility]) carbamide peroxide 65 MG/ML Otic Solution [Debrox] Debrox 6. 5 % Debrox 6.5 % 10/12/2019 12:00:00 AM EDT active Debrox 6.5 % eCW1 ([facility]) carbamide peroxide 65 MG/ML Otic Solution [Debrox] Debrox 6. 5 % Debrox 6.5 % 10/12/2019 12:00:00 AM EDT active Debrox 6.5 % eCW1 ([facility]) carbamide peroxide 65 MG/ML Otic Solution [Debrox] Debrox 6. 5 % Debrox 6.5 % 10/12/2019 12:00:00 AM EDT active Debrox 6.5 % eCW1 ([facility]) Diclofenac Sodium 0.01 MG/MG Topical Gel Diclofenac So dium 1 % Diclofenac Sodium 1 % 10/12/2019 12:00:00 AM EDT active Diclofenac Sodium 1 % eCW1 ([facility]) carbamide peroxide 65 MG/ML Otic Solution [Debrox] Debrox 6. 5 % Debrox 6.5 % 10/12/2019 12:00:00 AM EDT active Debrox 6.5 % eCW1 ([facility]) carbamide peroxide 65 MG/ML Otic Solution [Debrox] Debrox 6. 5 % Debrox 6.5 % 10/12/2019 12:00:00 AM EDT active Debrox 6.5 % eCW1 ([facility]) carbamide peroxide 65 MG/ML Otic Solution [Debrox] Debrox 6. 5 % Debrox 6.5 % 10/12/2019 12:00:00 AM EDT active Debrox 6.5 % eCW1 ([facility]) Diclofenac Sodium 0.01 MG/MG Topical Gel Diclofenac So dium 1 % Diclofenac Sodium 1 % 10/12/2019 12:00:00 AM EDT active Diclofenac Sodium 1 % eCW1 ([facility]) carbamide peroxide 65 MG/ML Otic Solution [Debrox] Debrox 6. 5 % Debrox 6.5 % 10/12/2019 12:00:00 AM EDT active Debrox 6.5 % eCW1 ([facility]) carbamide peroxide 65 MG/ML Otic Solution [Debrox] Debrox 6. 5 % Debrox 6.5 % 10/12/2019 12:00:00 AM EDT active Debrox 6.5 % eCW1 ([facility]) Diclofenac Sodium 0.01 MG/MG Topical Gel Diclofenac So dium 1 % Diclofenac Sodium 1 % 10/12/2019 12:00:00 AM EDT active Diclofenac Sodium 1 % eCW1 ([facility]) Diclofenac Sodium 0.01 MG/MG Topical Gel Diclofenac So dium 1 % Diclofenac Sodium 1 % 10/12/2019 12:00:00 AM EDT active Diclofenac Sodium 1 % eCW1 ([facility]) Diclofenac Sodium 0.01 MG/MG Topical Gel Diclofenac So dium 1 % Diclofenac Sodium 1 % 10/12/2019 12:00:00 AM EDT active Diclofenac Sodium 1 % eCW1 ([facility]) carbamide peroxide 65 MG/ML Otic Solution [Debrox] Debrox 6. 5 % Debrox 6.5 % 10/12/2019 12:00:00 AM EDT active Debrox 6.5 % eCW1 ([facility]) Diclofenac Sodium 0.01 MG/MG Topical Gel Diclofenac So dium 1 % Diclofenac Sodium 1 % 10/12/2019 12:00:00 AM EDT active Diclofenac Sodium 1 % eCW1 ([facility]) carbamide peroxide 65 MG/ML Otic Solution [Debrox] Debrox 6. 5 % Debrox 6.5 % 10/12/2019 12:00:00 AM EDT active Debrox 6.5 % eCW1 ([facility]) Diclofenac Sodium 0.01 MG/MG Topical Gel Diclofenac So dium 1 % Diclofenac Sodium 1 % 10/12/2019 12:00:00 AM EDT active Diclofenac Sodium 1 % eCW1 ([facility]) Diclofenac Sodium 0.01 MG/MG Topical Gel Diclofenac So dium 1 % Diclofenac Sodium 1 % 10/12/2019 12:00:00 AM EDT active Diclofenac Sodium 1 % eCW1 ([facility]) carbamide peroxide 65 MG/ML Otic Solution [Debrox] Debrox 6. 5 % Debrox 6.5 % 10/12/2019 12:00:00 AM EDT active Debrox 6.5 % eCW1 ([facility]) Diclofenac Sodium 0.01 MG/MG Topical Gel Diclofenac So dium 1 % Diclofenac Sodium 1 % 10/12/2019 12:00:00 AM EDT active Diclofenac Sodium 1 % eCW1 ([facility]) carbamide peroxide 65 MG/ML Otic Solution [Debrox] Debrox 6. 5 % Debrox 6.5 % 10/12/2019 12:00:00 AM EDT active Debrox 6.5 % eCW1 ([facility]) carbamide peroxide 65 MG/ML Otic Solution [Debrox] Debrox 6. 5 % Debrox 6.5 % 10/12/2019 12:00:00 AM EDT active Debrox 6.5 % eCW1 ([facility]) Diclofenac Sodium 0.01 MG/MG Topical Gel Diclofenac So dium 1 % Diclofenac Sodium 1 % 10/12/2019 12:00:00 AM EDT active Diclofenac Sodium 1 % eCW1 ([facility]) carbamide peroxide 65 MG/ML Otic Solution [Debrox] Debrox 6. 5 % Debrox 6.5 % 10/12/2019 12:00:00 AM EDT active Debrox 6.5 % eCW1 ([facility]) carbamide peroxide 65 MG/ML Otic Solution [Debrox] Debrox 6. 5 % Debrox 6.5 % 10/12/2019 12:00:00 AM EDT active Debrox 6.5 % eCW1 ([facility]) carbamide peroxide 65 MG/ML Otic Solution [Debrox] Debrox 6. 5 % Debrox 6.5 % 10/12/2019 12:00:00 AM EDT active Debrox 6.5 % eCW1 ([facility]) carbamide peroxide 65 MG/ML Otic Solution [Debrox] Debrox 6. 5 % Debrox 6.5 % 10/12/2019 12:00:00 AM EDT active Debrox 6.5 % eCW1 ([facility]) carbamide peroxide 65 MG/ML Otic Solution [Debrox] Debrox 6. 5 % Debrox 6.5 % 10/12/2019 12:00:00 AM EDT active Debrox 6.5 % eCW1 ([facility]) Diclofenac Sodium 0.01 MG/MG Topical Gel Diclofenac So dium 1 % Diclofenac Sodium 1 % 10/12/2019 12:00:00 AM EDT active Diclofenac Sodium 1 % eCW1 ([facility]) Chlorthalidone 25 MG Oral Tablet Chlorthalidone 25 MG 2019 12:00:00 AM EDT active 1 tablet in the m orning with food eCW1 ([facility]) CPAP 06/15/2019 12:00:00 AM EST active MEDENT ([facility]) Nystatin 705216 UNT/ML Topical Cream Nystatin 916414 U NIT/GM Nystatin 631264 UNIT/GM 05/23/2019 12:00:00 AM EST 1.0 {application} suspended Nystatin 846875 UNIT/GM eCW1 ([facility]) Nystatin 874014 UNT/ML Topical Cream Nystatin 082163 U NIT/GM Nystatin 375385 UNIT/GM 05/23/2019 12:00:00 AM EST 1.0 {application} suspended Nystatin 540308 UNIT/GM eCW1 ([facility]) Nystatin 337479 UNT/ML Topical Cream Nystatin 245447 U NIT/GM Nystatin 041810 UNIT/GM 05/23/2019 12:00:00 AM EST 1.0 {application} suspended Nystatin 535242 UNIT/GM eCW1 ([facility]) Nystatin 774140 UNT/ML Topical Cream Nystatin 874401 U NIT/GM Nystatin 924138 UNIT/GM 05/23/2019 12:00:00 AM EST 1.0 {application} suspended Nystatin 691918 UNIT/GM eCW1 ([facility]) Nystatin 130485 UNT/ML Topical Cream Nystatin 632753 U NIT/GM Nystatin 637371 UNIT/GM 05/23/2019 12:00:00 AM EST 1.0 {application} suspended Nystatin 456618 UNIT/GM eCW1 ([facility]) Nystatin 949626 UNT/ML Topical Cream Nystatin 763678 U NIT/GM Nystatin 054286 UNIT/GM 05/23/2019 12:00:00 AM EST active 1 application eCW1 ([facility]) Nystatin 036922 UNT/ML Topical Cream Nystatin 012383 U NIT/GM Nystatin 902480 UNIT/GM 05/23/2019 12:00:00 AM EST 1.0 {application} suspended Nystatin 916499 UNIT/GM eCW1 ([facility]) Nystatin 137409 UNT/ML Topical Cream Nystatin 277903 U NIT/GM Nystatin 222150 UNIT/GM 05/23/2019 12:00:00 AM EST 1.0 {application} suspended Nystatin 505151 UNIT/GM eCW1 ([facility]) Nystatin 567031 UNT/ML Topical Cream Nystatin 729465 U NIT/GM Nystatin 196041 UNIT/GM 05/23/2019 12:00:00 AM EST 1.0 {application} suspended Nystatin 197915 UNIT/GM eCW1 ([facility]) Nystatin 404382 UNT/ML Topical Cream Nystatin 452377 U NIT/GM Nystatin 766844 UNIT/GM 05/23/2019 12:00:00 AM EST 1.0 {application} suspended Nystatin 501909 UNIT/GM eCW1 ([facility]) Nystatin 219396 UNT/ML Topical Cream Nystatin 285189 U NIT/GM Nystatin 373460 UNIT/GM 05/23/2019 12:00:00 AM EST 1.0 {application} suspended Nystatin 680214 UNIT/GM eCW1 ([facility]) Nystatin 650727 UNT/ML Topical Cream Nystatin 360633 U NIT/GM Nystatin 448460 UNIT/GM 05/23/2019 12:00:00 AM EST active 1 application eCW1 ([facility]) Nystatin 967937 UNT/ML Topical Cream Nystatin 777466 U NIT/GM Nystatin 350859 UNIT/GM 05/23/2019 12:00:00 AM EST 1.0 {application} active Nystatin 992247 UNIT/GM eCW1 ([facility]) Nystatin 995111 UNT/ML Topical Cream Nystatin 190045 U NIT/GM Nystatin 196061 UNIT/GM 05/23/2019 12:00:00 AM EST 1.0 {application} suspended Nystatin 947150 UNIT/GM eCW1 ([facility]) Nystatin 629195 UNT/ML Topical Cream Nystatin 652033 U NIT/GM Nystatin 701994 UNIT/GM 05/23/2019 12:00:00 AM EST 1.0 {application} suspended Nystatin 242585 UNIT/GM eCW1 ([facility]) Nystatin 828876 UNT/ML Topical Cream Nystatin 077342 U NIT/GM Nystatin 934101 UNIT/GM 05/23/2019 12:00:00 AM EST 1.0 {application} suspended Nystatin 009301 UNIT/GM eCW1 ([facility]) Nystatin 746753 UNT/ML Topical Cream Nystatin 011321 U NIT/GM Nystatin 009905 UNIT/GM 05/23/2019 12:00:00 AM EST 1.0 {application} suspended Nystatin 567284 UNIT/GM eCW1 ([facility]) Nystatin 519702 UNT/ML Topical Cream Nystatin 387943 U NIT/GM Nystatin 010926 UNIT/GM 05/23/2019 12:00:00 AM EST 1.0 {application} active Nystatin 682391 UNIT/GM eCW1 ([facility]) Nystatin 068545 UNT/ML Topical Cream Nystatin 492235 U NIT/GM Nystatin 992116 UNIT/GM 05/23/2019 12:00:00 AM EST active 1 application eCW1 ([facility]) Nystatin 671225 UNT/ML Topical Cream Nystatin 576004 U NIT/GM Nystatin 107443 UNIT/GM 05/23/2019 12:00:00 AM EST active 1 application eCW1 ([facility]) Nystatin 389815 UNT/ML Topical Cream Nystatin 305452 U NIT/GM Nystatin 841132 UNIT/GM 05/23/2019 12:00:00 AM EST active 1 application eCW1 ([facility]) Nystatin 003584 UNT/ML Topical Cream Nystatin 496916 U NIT/GM Nystatin 681443 UNIT/GM 05/23/2019 12:00:00 AM EST 1.0 {application} suspended Nystatin 585313 UNIT/GM eCW1 ([facility]) Nystatin 229623 UNT/ML Topical Cream Nystatin 044522 U NIT/GM Nystatin 697292 UNIT/GM 05/23/2019 12:00:00 AM EST 1.0 {application} suspended Nystatin 600782 UNIT/GM eCW1 ([facility]) Nystatin 746257 UNT/ML Topical Cream Nystatin 038099 U NIT/GM Nystatin 950733 UNIT/GM 05/23/2019 12:00:00 AM EST 1.0 {application} active Nystatin 554500 UNIT/GM eCW1 ([facility]) Nystatin 731823 UNT/ML Topical Cream Nystatin 518185 U NIT/GM Nystatin 703210 UNIT/GM 05/23/2019 12:00:00 AM EST active 1 application eCW1 ([facility]) Nystatin 690095 UNT/ML Topical Cream Nystatin 596148 U NIT/GM Nystatin 988031 UNIT/GM 05/23/2019 12:00:00 AM EST active 1 application eCW1 ([facility]) Dextromethorphan HBr 10 MG/5ML UNK 04/20/2019 12:00:00 AM EST suspended 5 ml as needed for cough eCW1 ([facility]) Dextromethorphan HBr 10 MG/5ML UNK 04/20/2019 12:00:00 AM EST active 5 ml as needed for cough eCW1 ([facility]) May Use 1 UNK 04/06/2019 12:00:00 AM EST active May Use 1 eCW1 ([facility]) May Use 1 UNK 04/06/2019 12:00:00 AM EST active May Use 1 eCW1 ([facility]) May Use 1 UNK 04/06/2019 12:00:00 AM EST active May Use 1 eCW1 ([facility]) May Use 1 UNK 04/06/2019 12:00:00 AM EST active May Use 1 eCW1 ([facility]) May Use 1 UNK 04/06/2019 12:00:00 AM EST active May Use 1 eCW1 ([facility]) May Use 1 UNK 04/06/2019 12:00:00 AM EST active May Use 1 eCW1 ([facility]) May Use 1 UNK 04/06/2019 12:00:00 AM EST active May Use 1 eCW1 ([facility]) May Use 1 UNK 04/06/2019 12:00:00 AM EST active May Use 1 eCW1 ([facility]) May Use 1 UNK 04/06/2019 12:00:00 AM EST a ctive humidifier in the room eCW1 ([facility]) May Use 1 UNK 04/06/2019 12:00:00 AM EST a ctive humidifier in the room eCW1 ([facility]) May Use 1 UNK 04/06/2019 12:00:00 AM EST active May Use 1 eCW1 ([facility]) May Use 1 UNK 04/06/2019 12:00:00 AM EST active May Use 1 eCW1 ([facility]) May Use 1 UNK 04/06/2019 12:00:00 AM EST a ctive humidifier in the room eCW1 ([facility]) May Use 1 UNK 04/06/2019 12:00:00 AM EST a ctive humidifier in the room eCW1 ([facility]) May Use 1 UNK 04/06/2019 12:00:00 AM EST active May Use 1 eCW1 ([facility]) May Use 1 UNK 04/06/2019 12:00:00 AM EST a ctive humidifier in the room eCW1 ([facility]) May Use 1 UNK 04/06/2019 12:00:00 AM EST active May Use 1 eCW1 ([facility]) May Use 1 UNK 04/06/2019 12:00:00 AM EST active May Use 1 eCW1 ([facility]) May Use 1 UNK 04/06/2019 12:00:00 AM EST active May Use 1 eCW1 ([facility]) May Use 1 UNK 04/06/2019 12:00:00 AM EST active May Use 1 eCW1 ([facility]) May Use 1 UNK 04/06/2019 12:00:00 AM EST active May Use 1 eCW1 ([facility]) May Use 1 UNK 04/06/2019 12:00:00 AM EST a ctive humidifier in the room eCW1 ([facility]) May Use 1 UNK 04/06/2019 12:00:00 AM EST a ctive humidifier in the room eCW1 ([facility]) May Use 1 UNK 04/06/2019 12:00:00 AM EST a ctive humidifier in the room eCW1 ([facility]) May Use 1 UNK 04/06/2019 12:00:00 AM EST active May Use 1 eCW1 ([facility]) May Use 1 UNK 04/06/2019 12:00:00 AM EST active May Use 1 eCW1 ([facility]) May Use 1 UNK 04/06/2019 12:00:00 AM EST active May Use 1 eCW1 ([facility]) Insurance Providers Payer name Policy type / Coverage type Policy ID Covered democrat ID Covered democrat's relationship to kahn Policy Kahn Plan Information [id number] [id number] SP [id number] [facility] [id number] SP [id number] [facility] [id number] SP [id number] [facility]([place]CAID) O [id number] S [id number] MEDICAID M [id number] S [id number] [facility] Secure Horizons P [id number] S [id number] Medicaid S [id number] S [id number] MEDICAID [id number] SP [id number] [facility] Secure Horizons P [id number] S [id number] [facility]([place]) O [id number] S [id number] MEDICARE [id number] SP [id number] Medicaid Dental O [id number] S [id number] ANSI-Medicaid [id number] ANSI-Medicare Part B [id number] ANSI-Not a Secondary Insurance [id number] ANSI-Medicare Part B [id number] ANSI-Not a Secondary Insurance [id number] ANSI-Medicaid [id number] ANSI-Medicare Part B [id number] ANSI-Medicaid [id number] ANSI-Not a Secondary Insurance [id number] ANSI-Not a Secondary Insurance [id number] ANSI-Medicare Part B [id number] ANSI-Medicaid [id number] ANSI-Medicaid [id number] ANSI-Not a Secondary Insurance [id number] ANSI-Medicare Part B [id number] ANSI-Medicare Part B [id number] ANSI-Medicaid [id number] Medicaid Medicaid [id number] Self [id number] [facility] Dual Plan Commercial [id number] Self [id number] ANSI-Medicaid [id number] ANSI-Medicare Part B [id number] Medicaid [place] Med[place] Part B [id number] Self [id number] [place] Primary [id number] Self [id number] Dual Complete Commercial [id number] Self [id number] ANSI-Medicare Part B [id number] ANSI-Medicaid [id number] ANSI-Medicaid [id number] ANSI-Medicare Part B [id number] ANSI-Medicaid [id number] ANSI-Medicare Part B [id number] ANSI-Medicare Part B [id number] ANSI-Medicaid [id number] ANSI-Medicaid [id number] ANSI-Medicare Part B [id number] Medicaid [place] Part B [id number] Self [id number] Medicare [facility] Medicare Primary [id number] Self [id number] Dual Complete Commercial [id number] Self [id number] ANSI-Medicaid [id number] ANSI-Medicare Part B [id number] ANSI-Medicaid [id number] ANSI-Medicare Part B [id number] MEDICARE [id number] ANSI-Medicaid [id number] ANSI-Medicare Part B [id number] Medicaid Medicaid [id number] Self [id number] [facility] Dual Plan Commercial [id number] Self [id number] ANSI-Medicare Part B [id number] ANSI-Medicaid [id number] ANSI-Medicaid [id number] ANSI-Medicare Part B [id number] ANSI-Medicare Part B [id number] ANSI-Medicaid [id number] ANSI-Medicaid [id number] ANSI-Medicare Part B [id number] ANSI-Medicare Part B [id number] ANSI-Medicaid [id number] ANSI-Medicaid [id number] ANSI-Medicare Part B [id number] Medicaid Medicaid [id number] Self [id number] [facility] Dual Plan Commercial [id number] Self [id number] ANSI-Medicare Part B [id number] ANSI-Medicaid [id number] ANSI-Medicare Part B [id number] ANSI-Medicaid [id number] ANSI-Medicare Part B [id number] ANSI-Medicaid [id number] ANSI-Medicare Part B [id number] ANSI-Medicaid [id number] ANSI-Medicaid [id number] ANSI-Medicare Part B [id number] Medicaid P UNAVAILABLE S UNAVAILA BLE ANSI-Medicare Part B [id number] ANSI-Medicaid [id number] Medicaid Medicaid [id number] Self [id number] [facility] Dual Plan Commercial [id number] Self [id number] MEDICAID [id number] SP [id number] MEDICARE [id number] SP [id number] A Medicare [facility] Medicare Primary [id number] Self [id number] Medicaid [place] [facility] Part B [id number] Self [id number] Medicaid Medicaid [id number] Self [id number] Medicare Medicare Primary [id number] Self [id number] [facility] Medicare Primary [id number] Self [id number] Medicaid Medicaid [id number] Self [id number] Medicare Medicare Primary [id number] Self 12 [id number] Medicaid Dental P [id number] Medicaid Medicaid [id number] Self [id number] Medicare Medicare Primary [id number] Self [id number] Medicaid Medicaid [id number] Self [id number] Medicare Medicare Primary [id number] Self [id number] Medicaid Medicaid [id number] Self [id number] Medicare Medicare Primary [id number] Self 12 [id number] Medicaid Medicaid [id number] Self [id number] Medicare Medicare Primary [id number] Self [id number] MEDICARE [id number] SP [id number] Medicare P [id number] S [id number] A Medicaid Dental S [id number] S [id number] MEDICARE [id number] SP [id number] Self Pay O [id number] S [id number] Medicaid Dental S [id number] Problems, Conditions, and Diagnoses Code Display Name Description Problem Type Effective Dates Data Source(s) M81.0 791042483 Postmenopausal bone loss Problem 10/12/2019 12:00:00 AM EDT eCW1 ([facility]) Z12.11 [id number] Colon cancer screening Problem 04/20/2019 12 :00:00 AM EST eCW1 ([facility]) E66.01 [id number] Morbid (severe) obesity due to excess c alories Problem 04/20/2019 12:00:00 AM EST eCW1 ([facility]) M17.11 [id number] Primary osteoarthritis of right knee P roblem 04/20/2019 12:00:00 AM EST eCW1 ([facility]) Z53.20 858054416 Cervical cancer screening declined Proble m 04/20/2019 12:00:00 AM EST eCW1 ([facility]) Z12.39 [id number] Breast cancer screening Problem 04/20/2019 1 2:00:00 AM EST eCW1 ([facility]) Z12.11 972351349 Colon cancer screening Problem 04/20/2019 12 :00:00 AM EST eCW1 ([facility]) M17.11 [id number] Primary osteoarthritis of right knee P roblem 04/20/2019 12:00:00 AM EST eCW1 ([facility]) Z53.20 386859514 Cervical cancer screening declined Proble m 04/20/2019 12:00:00 AM EST eCW1 ([facility]) E66.01 [id number] Morbid (severe) obesity due to excess c alories Problem 04/20/2019 12:00:00 AM EST eCW1 ([facility]) Z12.39 508217795 Breast cancer screening Problem 04/20/2019 1 2:00:00 AM EST eCW1 ([facility]) Surgeries/Procedures Procedure Description Date Indications Data Source(s) PHYSICIAN TELEPHONE EVALUATION 21-30 MIN 09/14/2019 12 :00:00 AM EDT eCW1 ([facility]) PHYSICIAN TELEPHONE EVALUATION 11-20 MIN 08/30/2019 12 :00:00 AM EDT eCW1 ([facility]) MED NUTRITION INDIV SUBSEQ 07/18/2019 12:00:00 AM EDT eCW1 ([facility]) Office Visit, Est Pt., Level 2 FC 07/18/2019 12:00:00 AM EDT eCW1 ([facility]) Office Visit, Est Pt., Level 4 PC 07/18/2019 12:00:00 AM EDT eCW1 ([facility]) Cervical or vaginal cancer screening; pelvic and clinical br east examination 05/23/2019 12:00:00 AM EST eCW1 ([facility]) RIV4 VACC RECOMBINANT DNA IM 04/20/2019 12:00:00 AM ES T eCW1 ([facility]) Administration of influenza virus vaccine 04/20/2019 1 2:00:00 AM EST eCW1 ([facility]) Results ID Date Data Source [id number] 05/21/2020 06:00:00 AM EST [facility] Name Value Range Interpretation Code Description Data Sharon rce(s) Supporting Document(s) SARS coronavirus 2 RNA Not Detected [facility] [place] This lab was ordered by [facility] and reported by [facility]. ID Date Data Source [id number] 05/14/2020 07:30:00 AM EST [facility] Name Value Range Interpretation Code Description Data Sharon rce(s) Supporting Document(s) SARS coronavirus 2 RNA Not Detected [facility] [place] This lab was ordered by [facility] and reported by [facility]. ID Date Data Source [id number] 05/07/2020 07:35:00 AM EST [facility] Name Value Range Interpretation Code Description Data Sharon rce(s) Supporting Document(s) SARS coronavirus 2 RNA [facility] This lab was ordered by [facility] and reported by [facility]. ID Date Data Source [id number] 04/30/2020 09:30:00 AM EST [facility] Name Value Range Interpretation Code Description Data Sharon rce(s) Supporting Document(s) SARS coronavirus 2 RNA [facility] This lab was ordered by [facility] and reported by [facility]. ID Date Data Source [id number] 04/25/2020 11:38:00 AM EST [facility] Name Value Range Interpretation Code Description Data Sharon rce(s) Supporting Document(s) SARS coronavirus 2 RNA [facility] This lab was ordered by [facility] and reported by [facility]. ID Date Data Source [id number] 04/25/2020 12:00:00 AM EST [facility] Name Value Range Interpretation Code Description Data Sharon rce(s) Supporting Document(s) SARS-CoV2 Rapid Antigen [facility] This lab was ordered by [facility] and reported by [facility]. ID Date Data Source [id number] 04/20/2020 02:42:00 PM EST [facility] Name Value Range Interpretation Code Description Data Sharon rce(s) Supporting Document(s) SARS coronavirus 2 RNA [facility] This lab was ordered by [facility] and reported by [facility]. ID Date Data Source FREE T4 & TSH PANEL 03/01/2020 10:50:16 AM EDT eCW1 ([facility]) Name Value Range Interpretation Code Description Data Sharon rce(s) Supporting Document(s) 1.08 FREE T4 eCW1 ([facility]) FREE T4 1.170 THYROID STIMULATING HORMONE eC W1 ([facility]) THYROID STIMULATING HORMONE ID Date Data Source Rapid Strep ([place] Strep A+ ISAAC) 02/16/2020 05:58:52 AM EDT eCW1 ([facility]) Name Value Range Interpretation Code Description Data Sharon rce(s) Supporting Document(s) yes Internal Controls Perform ed (Y/N) eCW1 ([facility]) negative Rapid Strep ([place] Strep A+ ISAAC) eCW1 ([facility]) negative Result (Positive/Negative) eCW 1 ([facility]) ID Date Data Source [id number] 12/23/2019 10:43:08 AM EDT [facility] Patient History Medical History:High blo od pressureHigh cholestrolRefluxhypothyroidSurgical History:No known surgical historyFamily History:Cancer (Mother)Heart disease (Father)Social/Personal History: Smoking Status: never smokerDo you vape? NoCurrent Problems: Dental caries (ICD-521.00) (DND99-V77.9)Hypothyroidism (ICD-244.9) (YBJ63-C73.9)Hypertension (ICD-401.9) ([id number])Problem list reviewed during this update.Current Medications: * [...] and update per paperwork sent from the [facility]. 6 month recall. Exc pt. Alesia Kee RDH by clara (12/23/2019 11:39 AM): ; francheska (Dec 23 2019 3:15PM): [facility](-). CC: none. Reviewed Xrays. Exam: no new [...] STREP SCREEN) 11/25/2019 05:16:52 AM EDT eCW1 ([facility]) Name Value Range Interpretation Code Description Data Sharon rce(s) Supporting Document(s) FULL REPORT IN LAB NOTES (eCW and [facility]). GATS CULTURE (NEG STREP SCR) eCW1 ([facility]) ID Date Data Source [id number] 10/27/2019 12:00:00 AM EDT [facility] Name Value Range Interpretation Code Description Data Sharon rce(s) Supporting Document(s) 2019-nCoV N XXX Ql MESSI N2 [facility] [place] This lab was ordered by [facility] and reported by [facility]. ID Date Data Source [id number] 04/20/2019 12:00:00 AM EST eCW1 ([facility]) Name Value Range Interpretation Code Description Data Sharon rce(s) Supporting Document(s) Hemoglobin A1c/Hemoglobin.total in Blood 6.4 HEMOGLOBIN A1c eCW1 ([facility]) ID Date Data Source CBC with Differential 04/20/2019 12:00:00 AM EST eCW1 ([facility]) Name Value Range Interpretation Code Description Data Sharon rce(s) Supporting Document(s) 4.50 4.00-5.40 RED BLOOD COUNT eCW1 ([facility]) 8.3 4.0-10.0 WHITE BLOOD COUNT eCW1 ([facility]) 11.6 12.0-15.5 HEMOGLOBIN eCW1 ([facility]) 38.2 36.0-47.0 HEMATOCRIT eCW1 ([facility]) 30.4 32.0-36.5 MEAN CORPUSCULAR HGB CONC eCW1 ([facility]) 25.8 27.0-33.0 MEAN CORPUSCULAR HEMOGLOB IN eCW1 ([facility]) 84.9 80.0-96.0 MEAN CORPUSCULAR VOLUME e CW1 ([facility]) 409 150-450 PLATELET COUNT, AUTOMATED eCW1 ([facility]) 16.1 11.5-14.5 RED CELL DISTRIBUTION WID TH eCW1 ([facility]) 74.6 36.0-66.0 NEUTROPHILS % eCW1 ([facility]) 14.7 24.0-44.0 LYMPH % eCW1 ([facility]) 3.2 0.0-3.0 EOS % eCW1 ([facility]) 6.6 0.0-5.0 MONO % eCW1 ([facility]) 0.5 0.0-1.0 BASO % eCW1 ([facility]) 1.2 1.5-5.0 LYMPH # eCW1 ([facility]) 6.2 1.5-8.5 NEUTROPHILS # eCW1 ([facility]) 0.6 0.0-0.8 MONO # eCW1 ([facility]) 0.0 0.0-0.2 BASO # eCW1 ([facility]) 0.3 0.0-0.5 EOS # eCW1 ([facility]) ID Date Data Source LIPID PANEL (CARDIAC RISK) 04/20/2019 12:00:00 AM EST eCW1 ( [facility]) Name Value Range Interpretation Code Description Data Sharon rce(s) Supporting Document(s) Triglyceride [Mass/volume] in Serum or Plasma by calculation 208 <150 TRIGLYCERIDES LEVEL eCW1 ([facility]) Cholesterol in LDL [Mass/volume] in Serum or Plasma by calculation 101 <100 LDL CHOLESTEROL W1 ([facility]) Cholesterol in HDL [Moles/volume] in Serum or Plasma 50 >40 HDL CHOLESTEROL eCW1 ([facility]) Cholesterol [Moles/volume] in Serum or Plasma 193 <200 CHOLESTEROL LEVEL [facility] ([facility]) 143 NON-HDL-C eCW1 ([facility]) 3.860 <5 CHOLESTEROL RISK RATIO eCW1 ([facility]) ID Date Data Source Comprehensive Metabolic Profile (CMP) 04/20/2019 12:00:00 AM EST eCW1 ([facility]) Name Value Range Interpretation Code Description Data Sharon rce(s) Supporting Document(s) 101 70-100 GLUCOSE, FASTING eCW1 ([facility]) 23 7-18 BLOOD UREA NITROGEN eCW1 ([facility]) 54.5 >45 GLOMERULAR FILTRATION RATE eCW 1 ([facility]) 4.5 3.5-5.1 POTASSIUM SERUM eCW1 ([facility]) 143 136-145 SODIUM LEVEL eCW1 ([facility]) 1.09 0.55-1.30 CREATININE FOR GFR eCW1 ([facility]) 14 7-37 AST/SGOT eCW1 ([facility]) 109 98-107 CHLORIDE LEVEL eCW1 ([facility]) 25 21-32 CARBON DIOXIDE LEVEL eCW1 ([facility]) 9.0 8.8-10.2 CALCIUM LEVEL eCW1 ([facility]) 21 12-78 ALT/SGPT eCW1 ([facility]) 90 45-117 ALKALINE PHOSPHATASE eCW1 ([facility]) 0.3 0.2-1.0 BILIRUBIN,TOTAL eCW1 ([facility]) 7.3 6.4-8.2 TOTAL PROTEIN eCW1 ([facility]) 3.5 3.2-5.2 ALBUMIN eCW1 ([facility]) 0.92 1.00-1.93 ALBUMIN/GLOBULIN RATIO eCW1 ([facility]) ID Date Data Source CPK CREATINE PHOSPHOKINASE 04/20/2019 12:00:00 AM EST eCW1 ( [facility]) Name Value Range Interpretation Code Description Data Sharon rce(s) Supporting Document(s) 80 26-192 CPK CREATINE PHOSPHOKINASE eCW 1 ([facility]) Procedure Social History Code Duration Value Status Description Data Source(s ) Smoking 02/29/2020 12:00:00 AM EDT Never Smoker completed Never S moker eCW1 ([facility]) Smoking 02/29/2020 12:00:00 AM EDT Never Smoker completed Never S moker eCW1 ([facility]) Smoking 02/29/2020 12:00:00 AM EDT Never Smoker completed Never S moker eCW1 ([facility]) Smoking 02/29/2020 12:00:00 AM EDT Never Smoker completed Never S moker eCW1 ([facility]) Smoking 02/29/2020 12:00:00 AM EDT Never Smoker completed Never S moker eCW1 ([facility]) Smoking 02/29/2020 12:00:00 AM EDT Never Smoker completed Never S moker eCW1 ([facility]) Smoking 02/29/2020 12:00:00 AM EDT Never Smoker completed Never S moker eCW1 ([facility]) Smoking 02/29/2020 12:00:00 AM EDT Never Smoker completed Never S moker eCW1 ([facility]) Smoking 11/24/2019 12:00:00 AM EDT Never Smoker completed Never S moker eCW1 ([facility]) Smoking 11/24/2019 12:00:00 AM EDT Never Smoker completed Never S moker eCW1 ([facility]) Smoking 11/24/2019 12:00:00 AM EDT Never Smoker completed Never S moker eCW1 ([facility]) Smoking 11/24/2019 12:00:00 AM EDT Never Smoker completed Never S moker eCW1 ([facility]) Smoking 11/24/2019 12:00:00 AM EDT Never Smoker completed Never S moker eCW1 ([facility]) Smoking 11/24/2019 12:00:00 AM EDT Never Smoker completed Never S moker eCW1 ([facility]) Smoking 11/24/2019 12:00:00 AM EDT Never Smoker completed Never S moker eCW1 ([facility]) Smoking 11/24/2019 12:00:00 AM EDT Never Smoker completed Never S moker eCW1 ([facility]) Smoking 10/12/2019 12:00:00 AM EDT Never Smoker completed Never S moker eCW1 ([facility]) Smoking 10/12/2019 12:00:00 AM EDT Never Smoker completed Never S moker eCW1 ([facility]) Smoking 10/12/2019 12:00:00 AM EDT Never Smoker completed Never S moker eCW1 ([facility]) 07/28/2019 12:00:00 AM EDT Patient has never smoked co mpleted Patient has never smoked MEDENT ([facility], ) Vital Signs ID Date Data Source UNK Name Value Range Interpretation Code Description Data Source(s) Diastolic blood pressure 80 mm[Hg] 80 mm[Hg] eCW1 ([facility]) Systolic blood pressure 120 mm[Hg] 120 mm[Hg] e CW1 ([facility]) Body temperature 97.5 [degF] 97.5 [degF] eCW1 ( [facility]) Respiratory rate 20 /min 20 /min eCW1 ([facility]) Heart rate 88 /min 88 /min eCW1 ([facility]) Body mass index (BMI) [Ratio] 53.84 kg/m2 53.84 kg/m2 W1 ([facility]) Body height 61 [in_i] 61 [in_i] eCW1 ([facility]) Body weight 285 [lb_av] 285 [lb_av] eCW1 ([facility]) Diastolic blood pressure 78 mm[Hg] 78 mm[Hg] eCW1 ([facility]) Systolic blood pressure 134 mm[Hg] 134 mm[Hg] e CW1 ([facility]) Body temperature 97.2 [degF] 97.2 [degF] eCW1 ( [facility]) Respiratory rate 18 /min 18 /min eCW1 ([facility]) Heart rate 105 /min 105 /min eCW1 ([facility]) Body mass index (BMI) [Ratio] 53.24 kg/m2 53.24 kg/m2 eCW1 ([facility]) Body height 61 [in_i] 61 [in_i] eCW1 ([facility]) Body weight 281.8 [lb_av] 281.8 [lb_av] eCW1 ([facility]) Diastolic blood pressure 62 mm[Hg] 62 mm[Hg] eCW1 ([facility]) Systolic blood pressure 124 mm[Hg] 124 mm[Hg] e CW1 ([facility]) Body temperature 97.0 [degF] 97.0 [degF] eCW1 ( [facility]) Respiratory rate 20 /min 20 /min eCW1 ([facility]) Heart rate 102 /min 102 /min eCW1 ([facility]) Body mass index (BMI) [Ratio] 52.37 kg/m2 52.37 kg/m2 eCW1 ([facility]) Body height 61 [in_i] 61 [in_i] eCW1 ([facility]) Body weight 277.2 [lb_av] 277.2 [lb_av] eCW1 ([facility]) Diastolic blood pressure 73 mm[Hg] 73 mm[Hg] eCW1 ([facility]) Systolic blood pressure 117 mm[Hg] 117 mm[Hg] e CW1 ([facility]) Heart rate 85 /min 85 /min eCW1 ([facility]) Body mass index (BMI) [Ratio] 51.79 kg/m2 51.79 kg/m2 eCW1 ([facility]) Body height 61 [in_us] 61 [in_us] eCW1 ([facility]) Body weight Measured 274.1 [lb_av] 274.1 [lb_av ] eCW1 ([facility]) Diastolic blood pressure 89 mm[Hg] 89 mm[Hg] eCW1 ([facility]) Systolic blood pressure 154 mm[Hg] 154 mm[Hg] e CW1 ([facility]) Body mass index (BMI) [Ratio] 51.58 kg/m2 51.58 kg/m2 eCW1 ([facility]) Body height 61 [in_us] 61 [in_us] eCW1 ([facility]) Body weight Measured 273 [lb_av] 273 [lb_av] eC W1 ([facility]) Body weight 126.101 kg 126.101 kg MEDENT ([facility]) Body mass index (BMI) [Ratio] 54.3 kg/m2 54.3 k g/m2 MEDENT ([facility]) Body weight 278.00 [lb_av] 278.00 [lb_av] MEDEN T ([facility]) Body height 60 [in_i] 60 [in_i] [facility] 5'0" Oxygen saturation in Arterial blood by Pulse oximetry 96 % 96 % [facility] ([facility]) Heart rate 89 /min 89 /min MEDENT ([facility]) Diastolic blood pressure 84 mm[Hg] 84 mm[Hg] MEDENT ([facility]) Systolic blood pressure 130 mm[Hg] 130 mm[Hg] M EDENT ([facility]) Body mass index (BMI) [Ratio] 53.47 kg/m2 53.47 kg/m2 W1 ([facility]) Body height 61 [in_us] 61 [in_us] eCW1 ([facility]) Body weight Measured 283 [lb_av] 283 [lb_av] eC W1 ([facility]) Diastolic blood pressure 86 mm[Hg] 86 mm[Hg] eCW1 ([facility]) Systolic blood pressure 142 mm[Hg] 142 mm[Hg] e CW1 ([facility]) Body temperature 97.5 [degF] 97.5 [degF] eCW1 ( [facility]) Respiratory rate 20 /min 20 /min eCW1 ([facility]) Heart rate 110 /min 110 /min eCW1 ([facility]) Body mass index (BMI) [Ratio] 53.16 kg/m2 53.16 kg/m2 W1 ([facility]) Body height 61 [in_us] 61 [in_us] eCW1 ([facility]) Body weight Measured 281.4 [lb_av] 281.4 [lb_av ] eCW1 ([facility]) Diastolic blood pressure 76 mm[Hg] 76 mm[Hg] eCW1 ([facility]) Systolic blood pressure 120 mm[Hg] 120 mm[Hg] e CW1 ([facility]) Body temperature 97.5 [degF] 97.5 [degF] eCW1 ( [facility]) Respiratory rate 20 /min 20 /min eCW1 ([facility]) Heart rate 102 /min 102 /min eCW1 ([facility]) Body mass index (BMI) [Ratio] 52.79 kg/m2 52.79 kg/m2 eCW1 ([facility]) Body height 61 [in_us] 61 [in_us] eCW1 ([facility]) Body weight Measured 279.4 [lb_av] 279.4 [lb_av ] eCW1 ([facility]) Diastolic blood pressure 76 mm[Hg] 76 mm[Hg] eCW1 ([facility]) Systolic blood pressure 134 mm[Hg] 134 mm[Hg] e CW1 ([facility]) Body mass index (BMI) [Ratio] 52.33 kg/m2 52.33 kg/m2 eCW1 ([facility]) Body height 61 [in_us] 61 [in_us] eCW1 ([facility]) Body weight Measured 277 [lb_av] 277 [lb_av] eC W1 ([facility]) Body mass index (BMI) [Ratio] 52.71 kg/m2 52.71 kg/m2 eCW1 ([facility]) Body height 61 [in_us] 61 [in_us] eCW1 ([facility]) Body weight Measured 279 [lb_av] 279 [lb_av] eC W1 ([facility]) Body weight 126.554 kg 126.554 kg FAIZA ([facility] ) Body mass index (BMI) [Ratio] 54.5 kg/m2 54.5 k g/m2 MEDENT ([facility]) Body weight 279.00 [lb_av] 279.00 [lb_av] MEDEN T ([facility]) Body height 60 [in_i] 60 [in_i] MEDENT ([facility]) 5'0" Oxygen saturation in Arterial blood by Pulse oximetry 95 % 95 % MED[facility] ([facility]) Heart rate 81 /min 81 /min MED[facility] ([facility]) Diastolic blood pressure 80 mm[Hg] 80 mm[Hg] MEDENT ([facility]) Systolic blood pressure 117 mm[Hg] 117 mm[Hg] M EDENT ([facility]) Diastolic blood pressure 80 mm[Hg] 80 mm[Hg] eCW1 ([facility]) Systolic blood pressure 132 mm[Hg] 132 mm[Hg] e CW1 ([facility]) Body temperature 97.1 [degF] 97.1 [degF] eCW1 ( [facility]) Respiratory rate 18 /min 18 /min eCW1 ([facility]) Heart rate 107 /min 107 /min eCW1 ([facility]) Body mass index (BMI) [Ratio] 52.64 kg/m2 52.64 kg/m2 W1 ([facility]) Body height 61 [in_us] 61 [in_us] eCW1 ([facility]) Body weight Measured 278.6 [lb_av] 278.6 [lb_av ] eCW1 ([facility]) Patient Treatment Plan of Care Planned Activity Planned Date Details Description Data Source (s) atorvastatin 80 MG Oral Tablet [Lipitor] 02/29/2020 12:00:00 AM EDT eCW1 ([facility]) atorvastatin 80 MG Oral Tablet [Lipitor] 02/29/2020 12:00:00 AM EDT eCW1 ([facility]) atorvastatin 80 MG Oral Tablet [Lipitor] 02/29/2020 12:00:00 AM EDT eCW1 ([facility]) atorvastatin 80 MG Oral Tablet [Lipitor] 02/29/2020 12:00:00 AM EDT eCW1 ([facility]) atorvastatin 80 MG Oral Tablet [Lipitor] 02/29/2020 12:00:00 AM EDT eCW1 ([facility]) atorvastatin 80 MG Oral Tablet [Lipitor] 02/29/2020 12:00:00 AM EDT eCW1 ([facility]) atorvastatin 80 MG Oral Tablet [Lipitor] 02/29/2020 12:00:00 AM EDT eCW1 ([facility]) atorvastatin 80 MG Oral Tablet [Lipitor] 02/29/2020 12:00:00 AM EDT eCW1 ([facility]) Fluticasone Propionate 50 MCG/ACT 11/24/2019 12:00:00 AM EDT eCW1 ([facility]) cetirizine hydrochloride 10 MG Oral Tablet 11/24/2019 12:00:00 AM E DT eCW1 ([facility]) Fluticasone Propionate 50 MCG/ACT 11/24/2019 12:00:00 AM EDT eCW1 ([facility]) cetirizine hydrochloride 10 MG Oral Tablet 11/24/2019 12:00:00 AM E DT eCW1 ([facility]) Fluticasone Propionate 50 MCG/ACT 11/24/2019 12:00:00 AM EDT eCW1 ([facility]) cetirizine hydrochloride 10 MG Oral Tablet 11/24/2019 12:00:00 AM E DT eCW1 ([facility]) Fluticasone Propionate 50 MCG/ACT 11/24/2019 12:00:00 AM EDT eCW1 ([facility]) cetirizine hydrochloride 10 MG Oral Tablet 11/24/2019 12:00:00 AM E DT eCW1 ([facility]) Fluticasone Propionate 50 MCG/ACT 11/24/2019 12:00:00 AM EDT eCW1 ([facility]) cetirizine hydrochloride 10 MG Oral Tablet 11/24/2019 12:00:00 AM E DT eCW1 ([facility]) Fluticasone Propionate 50 MCG/ACT 11/24/2019 12:00:00 AM EDT eCW1 ([facility]) cetirizine hydrochloride 10 MG Oral Tablet 11/24/2019 12:00:00 AM E DT eCW1 ([facility]) Fluticasone Propionate 50 MCG/ACT 11/24/2019 12:00:00 AM EDT eCW1 ([facility]) cetirizine hydrochloride 10 MG Oral Tablet 11/24/2019 12:00:00 AM E DT eCW1 ([facility]) Fluticasone Propionate 50 MCG/ACT 11/24/2019 12:00:00 AM EDT eCW1 ([facility]) cetirizine hydrochloride 10 MG Oral Tablet 11/24/2019 12:00:00 AM E DT eCW1 ([facility]) carbamide peroxide 65 MG/ML Otic Solution [Debrox] 10/12/2019 12 :00:00 AM EDT eCW1 ([facility]) Diclofenac Sodium 0.01 MG/MG Topical Gel 10/12/2019 12:00:00 AM EDT eCW1 ([facility]) carbamide peroxide 65 MG/ML Otic Solution [Debrox] 10/12/2019 12 :00:00 AM EDT eCW1 ([facility]) Diclofenac Sodium 0.01 MG/MG Topical Gel 10/12/2019 12:00:00 AM EDT eCW1 ([facility]) carbamide peroxide 65 MG/ML Otic Solution [Debrox] 10/12/2019 12 :00:00 AM EDT eCW1 ([facility]) Diclofenac Sodium 0.01 MG/MG Topical Gel 10/12/2019 12:00:00 AM EDT eCW1 ([facility]) Chlorthalidone 25 MG Oral Tablet 07/18/2019 12:00:00 AM EDT eCW1 ([facility]) Nystatin [id number] UNT/ML Topical Cream 05/23/2019 12:00:00 AM EST eCW1 ([facility]) Nystatin [id number] UNT/ML Topical Cream 05/23/2019 12:00:00 AM EST eCW1 ([facility]) Dextromethorphan HBr 10 MG/5ML 04/20/2019 12:00:00 AM EST eCW1 ([facility]) May Use 1 04/06/2019 12:00:00 AM EST e CW1 ([facility])
[2020-05-28 09:27] VITALS: BP 156/71
--- NOTE | 2020-05-28 09:33 | REP ---
INDICATION: RUQ pain COMPARISON: None. TECHNIQUE: Real time duron scale ultrasound examination using curved array transducer. FINDINGS: Liver is normal in contour, size, and mildly hyperechoic without focal hepatic lesions identified. Pancreas is incompletely evaluated due to interposed bowel gas. The gallbladder is normal and without gallstones, wall thickening, or pericholecystic fluid. No biliary ductal dilatation is appreciated and the common bile duct measures 4.4 mm diameter. Right kidney is normal in reniform shape without hydronephrosis and measures 10.2 x 4.2 x 4.8 cm with few suspected punctate nonobstructing intrarenal calculi. No ascites in the visualized right upper quadrant. IMPRESSION: Possible small 1-2 mm nonobstructing right renal calculi. Mild fatty liver. <Electronically signed by David Connor > 05/28/20 [id number]
[2020-05-28] MEDS ORDERED: ISOVUE-370 76% 100ML VIAL As Ordered ONE (09:42)
--- NOTE | 2020-05-28 10:40 | REP ---
INDICATION: abdominal pain COMPARISON: Ultrasound today. TECHNIQUE: CT Scan of the abdomen and pelvis was performed without intravenous contrast. Sagittal and coronal reconstruction images performed. FINDINGS: Lung bases: There is a large hiatal hernia. Liver: Grossly unremarkable. Gallbladder: Unremarkable. Spleen: Grossly unremarkable.. Adrenals: Normal. Pancreas: Grossly unremarkable.. Kidneys: No hydronephrosis or nephrolithiasis. Ureters demonstrate no dilatation or calculus. Small and large bowel: There are multiple sigmoid diverticula present without evidence of acute diverticulitis. Free fluid: None. Abdominal aorta: No aneurysm. Adenopathy: None. Appendix: Not inflamed. Osseous structures: There are degenerative changes of the spine without compression deformity. Pelvis: No mass. No bladder calculus seen. A supraumbilical midline anterior abdominal wall hernia has a defect measuring 1.6 cm in width. The hernia sac contains noninflamed fat but no bowel. IMPRESSION: No acute abnormalities. Large hiatal hernia. No renal, ureteral or bladder calculus and no hydroureteronephrosis. Multiple sigmoid diverticula without acute diverticulitis. No evidence of bowel obstruction. No free air or free fluid. Supraumbilical midline anterior abdominal wall hernia contains noninflamed fat. <Electronically signed by Clayton Nye > 05/28/20 [id number]
[2020-05-28] MEDS ORDERED: MIRA3350 PO (11:10)
== END 2020-05-28 11:31 | disposition home or self-care (01) ==
LOC: M ED 07:05
DX: K59.00 Constipation, unspecified (principal); K57.30 Diverticulosis of large intestine without perforation or abscess without bleeding; K46.9 Unspecified abdominal hernia without obstruction or gangrene; I10 Essential (primary) hypertension; E78.5 Hyperlipidemia, unspecified; E66.9 Obesity, unspecified; E03.9 Hypothyroidism, unspecified; Z88.6 Allergy status to analgesic agent; Z79.899 Other long term (current) drug therapy

== ENCOUNTER → 2020-05-28 | Outpatient (REF) | payer MEDICARE, MEDICAID | PROVIDERS: ATTEND Internal Medicine | DX: Z20.822 Contact with and (suspected) exposure to COVID-19 (principal) ==

== ENCOUNTER → 2020-05-31 | Outpatient (REF) | payer MEDICARE, MEDICAID ==
[~2020-05-31] MED LIST changes: +ATOR80TA59 PO; +AZEL0.055 NARES; +CHLO25TA PO; +DEBR6.5S4 AU; +LISI40TA PO; -LISI40TA4 PO; +MIRA3350 PO; +ROBI1LIQ9 PO; +VOLT1GEL15 TOP
[2020-05-31 09:25] LABS: BASO # 0.1 10^3/uL (0.0-0.2); BASO % 0.5 % (0.0-1.0); EOS # 0.3 10^3/uL (0.0-0.5); EOS % 3.4 % (0.0-3.0); HEMATOCRIT 31.7 % (36.0-47.0); HEMOGLOBIN 9.9 g/dl (12.0-15.5); LYMPH # 1.5 10^3/uL (1.5-5.0); MEAN CORPUSCULAR HEMOGLOBIN 26.1 pg (27.0-33.0); MEAN CORPUSCULAR HGB CONC 31.2 g/dl (32.0-36.5); MEAN CORPUSCULAR VOLUME 83.6 fl (80.0-96.0); MONO # 0.7 10^3/uL (0.0-0.8); MONO % 7.1 % (0.0-5.0); NEUTROPHILS # 6.8 10^3/uL (1.5-8.5); NEUTROPHILS % 72.7 % (36.0-66.0); PLATELET COUNT, AUTOMATED 371 10^3/uL (150-450); RED BLOOD COUNT 3.79 10^6/uL (4.00-5.40); WHITE BLOOD COUNT 9.3 10^3/uL (4.0-10.0)
[2020-05-31 10:06] LABS: ALBUMIN 3.3 GM/DL (3.2-5.2); BILIRUBIN,TOTAL 0.3 MG/DL (0.2-1.0); CALCIUM LEVEL 9.2 MG/DL (8.8-10.2); CHOLESTEROL RISK RATIO 3.339 (<5); CREATININE FOR GFR 1.12 MG/DL (0.55-1.30); FREE T4 1.06 NG/DL (0.76-1.46); GLOMERULAR FILTRATION RATE 52.7 (>45); POTASSIUM SERUM 3.9 MEQ/L (3.5-5.1); THYROID STIMULATING HORMONE 2.78 uIU/ML (0.358-3.740); TOTAL PROTEIN 6.7 GM/DL (6.4-8.2)
[2020-05-31 11:06] LABS: HEMOGLOBIN A1c 6.1 %
== END ==
PROVIDERS: ATTEND Physician Assistant Medical
DX: E78.2 Mixed hyperlipidemia (principal); Z79.899 Other long term (current) drug therapy

== ENCOUNTER → 2020-06-04 | Outpatient (REF) | payer MEDICARE, MEDICAID | PROVIDERS: ATTEND Internal Medicine | DX: Z20.822 Contact with and (suspected) exposure to COVID-19 (principal) ==

== ENCOUNTER → 2020-06-07 | Outpatient (REF) | payer MEDICARE, MEDICAID ==
[2020-06-07 16:11] LABS: BASO % 0.4 % (0.0-1.0); EOS # 0.4 10^3/uL (0.0-0.5); EOS % 3.5 % (0.0-3.0); HEMATOCRIT 34.9 % (36.0-47.0); HEMOGLOBIN 10.5 g/dl (12.0-15.5); LYMPH # 1.8 10^3/uL (1.5-5.0); LYMPH % 15.6 % (24.0-44.0); MEAN CORPUSCULAR HEMOGLOBIN 26.1 pg (27.0-33.0); MEAN CORPUSCULAR HGB CONC 30.1 g/dl (32.0-36.5); MEAN CORPUSCULAR VOLUME 86.6 fl (80.0-96.0); MONO # 0.9 10^3/uL (0.0-0.8); MONO % 7.7 % (0.0-5.0); NEUTROPHILS # 8.2 10^3/uL (1.5-8.5); NEUTROPHILS % 72.4 % (36.0-66.0); PLATELET COUNT, AUTOMATED 441 10^3/uL (150-450); RED BLOOD COUNT 4.03 10^6/uL (4.00-5.40); WHITE BLOOD COUNT 11.3 10^3/uL (4.0-10.0)
[2020-06-07 16:48] LABS: FERRITIN 24 NG/ML (8-252); IRON (FE) 34 UG/DL (50-170)
[2020-06-07 17:15] LABS: VITAMIN B12 LEVEL 312 PG/ML (247-911)
== END ==
PROVIDERS: ATTEND Physician Assistant Medical
DX: D64.9 Anemia, unspecified (principal)

== ENCOUNTER → 2020-06-11 | Outpatient (REF) | payer MEDICARE, MEDICAID | PROVIDERS: ATTEND Internal Medicine | DX: Z11.52 Encounter for screening for COVID-19 (principal) ==

== ENCOUNTER → 2020-06-18 | Outpatient (REF) | payer MEDICARE, MEDICAID ==
[~2020-06-18] MED LIST changes: -LISI40TA PO; +LISI40TA4 PO
== END ==
PROVIDERS: ATTEND Internal Medicine
DX: Z20.822 Contact with and (suspected) exposure to COVID-19 (principal)

== ENCOUNTER → 2020-06-25 | Outpatient (REF) | payer MEDICARE, MEDICAID | PROVIDERS: ATTEND Internal Medicine | DX: Z20.822 Contact with and (suspected) exposure to COVID-19 (principal) ==

== ENCOUNTER → 2020-07-03 | Outpatient (REF) | payer MEDICARE, MEDICAID ==
[2020-07-03 15:38] LABS: BASO % 0.4 % (0.0-1.0); EOS # 0.3 10^3/uL (0.0-0.5); EOS % 3.2 % (0.0-3.0); HEMATOCRIT 34.2 % (36.0-47.0); HEMOGLOBIN 10.3 g/dl (12.0-15.5); LYMPH # 1.3 10^3/uL (1.5-5.0); LYMPH % 12.8 % (24.0-44.0); MEAN CORPUSCULAR HEMOGLOBIN 25.8 pg (27.0-33.0); MEAN CORPUSCULAR HGB CONC 30.1 g/dl (32.0-36.5); MEAN CORPUSCULAR VOLUME 85.7 fl (80.0-96.0); MONO # 0.7 10^3/uL (0.0-0.8); MONO % 6.4 % (2.0-8.0); NEUTROPHILS # 7.9 10^3/uL (1.5-8.5); NEUTROPHILS % 76.8 % (36.0-66.0); PLATELET COUNT, AUTOMATED 420 10^3/uL (150-450); RED BLOOD COUNT 3.99 10^6/uL (4.00-5.40); WHITE BLOOD COUNT 10.2 10^3/uL (4.0-10.0)
== END ==
LOC: M SFHCPLAZ 11:29
PROVIDERS: ATTEND Physician Assistant Medical
DX: M17.11 Unilateral primary osteoarthritis, right knee (principal); D50.9 Iron deficiency anemia, unspecified
CPT/HCPCS: 36415; 83540; 85025; G0463

== ENCOUNTER → 2020-07-26 | Outpatient (CLI) | payer MEDICARE, MEDICAID ==
--- NOTE | 2020-07-26 12:33 | REPPI ---
INDICATION: LEFT ANKLE PAIN COMPARISON: None. TECHNIQUE: There are four views. FINDINGS: There is circumferential soft tissue edema. Mineralization and joint spaces are normal. There is no fracture or dislocation. No effusion. There is a calcaneal plantar spur. IMPRESSION: Circumferential soft tissue edema. Calcaneal plantar spur. No fracture or dislocation. <Electronically signed by Clayton Park > 07/26/20 [id number]
--- NOTE | 2020-07-26 12:38 | REPPI ---
INDICATION: LEFT ANKLE PAIN COMPARISON: None. TECHNIQUE: There are four views. FINDINGS: There is soft tissue edema over the dorsum. There is advanced osteoarthritis at the great toe MTP articulation and hallux valgus. There is no fracture or dislocation, however, the toes are suboptimally imaged as they are maintained in flexion with superimposition on almost every view. There are no calcifications or foreign bodies. IMPRESSION: Soft tissue edema. 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 Calcaneal plantar spur. <Electronically signed by Clayton Park > 07/26/20 [id number]
== END ==
LOC: M PLAIMG 11:40
PROVIDERS: ATTEND Physician Assistant
DX: M77.32 Calcaneal spur, left foot (principal); M19.072 Primary osteoarthritis, left ankle and foot; M25.572 Pain in left ankle and joints of left foot; M79.672 Pain in left foot

== ENCOUNTER → 2020-08-08 | Outpatient (CLI) | payer MEDICARE, MEDICAID ==
--- NOTE | 2020-08-10 04:43 | REPPI ---
INDICATION: OSTEOARTHRITIS COMPARISON: None. TECHNIQUE: AP, lateral, bilateral oblique views of the right knee. FINDINGS: Severe advanced tricompartmental osteoarthritic degenerative changes are appreciated. No obvious acute fracture or dislocation identified. Overlying soft tissue swelling cannot be excluded. No obvious effusion. IMPRESSION: Advanced tricompartmental osteoarthritic degenerative changes. <Electronically signed by David Connor > 08/10/20 [id number]
== END ==
LOC: M PLAIMG 10:07
PROVIDERS: ATTEND Physician Assistant Medical
DX: M17.11 Unilateral primary osteoarthritis, right knee (principal)
CPT/HCPCS: 73564; G0463

== ENCOUNTER → 2020-08-31 | Outpatient (REF) | payer MEDICARE, MEDICAID ==
[2020-08-31 10:23] LABS: BASO # 0.1 10^3/uL (0.0-0.2); BASO % 0.7 % (0.0-1.0); EOS # 0.3 10^3/uL (0.0-0.5); EOS % 3.1 % (0.0-3.0); HEMATOCRIT 39.9 % (36.0-47.0); HEMOGLOBIN 12.3 g/dl (12.0-15.5); LYMPH # 1.9 10^3/uL (1.5-5.0); LYMPH % 18.7 % (24.0-44.0); MEAN CORPUSCULAR HEMOGLOBIN 26.3 pg (27.0-33.0); MEAN CORPUSCULAR HGB CONC 30.8 g/dl (32.0-36.5); MEAN CORPUSCULAR VOLUME 85.4 fl (80.0-96.0); MONO # 0.8 10^3/uL (0.0-0.8); MONO % 7.4 % (2.0-8.0); NEUTROPHILS # 7.2 10^3/uL (1.5-8.5); NEUTROPHILS % 69.6 % (36.0-66.0); PLATELET COUNT, AUTOMATED 421 10^3/uL (150-450); RED BLOOD COUNT 4.67 10^6/uL (4.00-5.40); WHITE BLOOD COUNT 10.3 10^3/uL (4.0-10.0)
[2020-08-31 10:49] LABS: ALBUMIN 3.8 GM/DL (3.2-5.2); BILIRUBIN,TOTAL 0.3 MG/DL (0.2-1.0); CALCIUM LEVEL 9.4 MG/DL (8.8-10.2); CREATININE FOR GFR 1.13 MG/DL (0.55-1.30); GLOMERULAR FILTRATION RATE 51.9 (>45); POTASSIUM SERUM 4.2 MEQ/L (3.5-5.1); TOTAL PROTEIN 7.7 GM/DL (6.4-8.2)
== END ==
PROVIDERS: ATTEND Physician Assistant Medical
DX: M17.11 Unilateral primary osteoarthritis, right knee (principal); Z79.899 Other long term (current) drug therapy; D50.9 Iron deficiency anemia, unspecified

== ENCOUNTER → 2020-09-13 | Outpatient (CLI) | payer MEDICARE, MEDICAID ==
--- NOTE | 2020-09-17 16:16 | SLEEPCENT ---
NOCTURNAL POLYSOMNOGRAPHY DATE: 09/13/2020 ORDERED BY: HAMMAD Philip Nocturnal polysomnography was performed for retitration of pressure therapy in this patient with obstructive sleep apnea syndrome. For testing a ResMed P30 pillows device of small size with a chin strap was applied to the circuit, and the lights were extinguished, 4 cm of water pressure was initially applied to the cir\circuit. 7 hours and 29 minutes of data were reviewed. There were only 152.5 minutes of sleep identified. Sleep latency was prolonged at 27.5 minutes. REM latency was not achieved. Sleep architecture was poor with periods of wake and poor sleep progression. Overall sleep efficiency was only 34.6%. The patient's electrocardiogram showed a sinus rhythm with an average heart rate of 78 beats per minute. EEG showed fairly normal waveforms for wake and sleep. There was much artifact appreciated. No focal events were seen. Persistence of respiratory events prompted increases in CPAP pressure; however, central events emerged prompting a change to a BiLevel device. The patient was titrated on BiLevel therapy to best pressure of inspiratory 20/expiratory 16. Despite palliation of obstructive respiratory events, sleep progression was poor. At this pressure, oxygen saturations remained in the low 90s. IMPRESSION: Obstructive sleep apnea syndrome (G47.33). RECOMMENDATION: Nightly use of pressure delivered via BiLevel device inspiratory 20/expiratory 16.
== END ==
LOC: M SLEEP 20:00
PROVIDERS: ATTEND Nurse Practitioner Family
DX: G47.33 Obstructive sleep apnea (adult) (pediatric) (principal)

== ENCOUNTER → 2020-10-31 | Outpatient (CLI) | payer MEDICARE, MEDICAID ==
[~2020-10-31] MED LIST changes: +OMEP40CA4 PO; -OMEP40CA97 PO
--- NOTE | 2020-10-31 13:37 | REPMRS ---
Patient History The patient states she had a clinical breast exam in October 2020. No known family history of cancer. No Hormone Replacement Therapy Best views possible due to patient condition No breast complaints today Patient signed the MRS sheet Patient has had both covid vaccines, she thinks it was Moderna does not remember when or which arm Priors on PACS Patient Identification Verified Digital Woman Screen Mammo: October 31, 2020 - Exam #: [id number] Bilateral CC and MLO view(s) were taken. Technologist: Kathe Silveira, Technologist Prior study comparison: October 19, 2019, bilateral digital woman screen mammo performed at [facility]. August 23, 2018, bilateral digital woman screen mammo performed at [facility]. August 21, 2017, digital woman screen mammo performed at [facility]. FINDINGS: The breast tissue is almost entirely fat. The Volpara volumetric breast density category is: A. There has been no change in the appearance of the mammogram from the prior studies. There is no interval development of dominant mass, architectural distortion, or grouped microcalcification typical of malignancy. 3-D tomosynthesis shows no additional findings. Assessment: BI-RADS/ACR category 1 mammogram. Negative Mammogram. Recommendation Routine screening mammogram of both breasts in 1 year (for women over age 40). This patient's [facility] Lifetime Breast Cancer RIsk is estimated at 8.9 %. This mammogram was interpreted with the aid of an FDA-approved computer-aided dectection system. Electronically Signed By: Ketan Wells MD 10/31/20 [id number]
== END ==
LOC: M WHC 12:36
PROVIDERS: ATTEND Nurse Practitioner Family
DX: Z12.31 Encounter for screening mammogram for malignant neoplasm of breast (principal)

== ENCOUNTER → 2021-01-02 | Outpatient (REF) | payer MEDICARE, MEDICAID ==
[2021-01-02 11:56] LABS: BASO % 0.4 % (0.0-1.0); EOS # 0.3 10^3/uL (0.0-0.5); EOS % 2.7 % (0.0-3.0); HEMATOCRIT 35.2 % (36.0-47.0); LYMPH # 1.4 10^3/uL (1.5-5.0); LYMPH % 14.9 % (24.0-44.0); MEAN CORPUSCULAR HEMOGLOBIN 27.9 pg (27.0-33.0); MEAN CORPUSCULAR HGB CONC 31.3 g/dl (32.0-36.5); MEAN CORPUSCULAR VOLUME 89.3 fl (80.0-96.0); MONO # 0.7 10^3/uL (0.0-0.8); MONO % 7.8 % (2.0-8.0); NEUTROPHILS # 6.8 10^3/uL (1.5-8.5); NEUTROPHILS % 73.9 % (36.0-66.0); PLATELET COUNT, AUTOMATED 340 10^3/uL (150-450); RED BLOOD COUNT 3.94 10^6/uL (4.00-5.40); WHITE BLOOD COUNT 9.1 10^3/uL (4.0-10.0)
[2021-01-02 12:37] LABS: ALBUMIN 3.1 GM/DL (3.2-5.2); BILIRUBIN,TOTAL 0.3 MG/DL (0.2-1.0); CALCIUM LEVEL 8.7 MG/DL (8.8-10.2); CHOLESTEROL RISK RATIO 3.977 (<5); CREATININE FOR GFR 1.16 MG/DL (0.55-1.30); FREE T4 0.97 NG/DL (0.76-1.46); GLOMERULAR FILTRATION RATE 50.4 (>45); POTASSIUM SERUM 4.1 MEQ/L (3.5-5.1); THYROID STIMULATING HORMONE 1.87 uIU/ML (0.358-3.740); TOTAL PROTEIN 6.8 GM/DL (6.4-8.2)
== END ==
PROVIDERS: ATTEND Physician Assistant Medical
DX: E78.2 Mixed hyperlipidemia (principal); D50.9 Iron deficiency anemia, unspecified; E03.9 Hypothyroidism, unspecified

== ENCOUNTER → 2021-01-20 | Outpatient (REF) | payer MEDICARE, MEDICAID ==
[2021-01-21 11:07] LABS: APPEARANCE, URINE CLEAR (CLEAR); BACTERIA, URINE AUTO 1+ (NEGATIVE); BILIRUBIN, URINE AUTO NEGATIVE (NEGATIVE); BLOOD, URINE BLOOD NEGATIVE (NEGATIVE); COLOR, URINE STRAW (YELLOW); GLUCOSE, URINE (UA) AUTO NEGATIVE (NEGATIVE); KETONE, URINE AUTO NEGATIVE (NEGATIVE); LEUKOCYTE ESTERASE, URINE AUTO NEGATIVE (NEGATIVE); NITRITE, URINE AUTO NEGATIVE (NEGATIVE); PROTEIN, URINE AUTO NEGATIVE (NEGATIVE); RBC, URINE AUTO 0 /HPF (0-3); SPECIFIC GRAVITY URINE AUTO 1.009 (1.002-1.035); SQUAMOUS EPITHELIAL CELL UR AU 1 /HPF (0-6); UROBILINOGEN, URINE AUTO 0.2 mg/dL (0.0-2.0); WBC, URINE AUTO 0 /HPF (0-3)
== END ==
LOC: M LAB REF 10:13
PROVIDERS: ATTEND Physician Assistant Medical
DX: N39.0 Urinary tract infection, site not specified (principal)

== ENCOUNTER → 2021-07-02 | Outpatient (CLI) | payer MEDICARE, MEDICAID ==
[2021-07-02 15:32] LABS: BASO % 0.3 % (0.0-1.0); EOS # 0.3 10^3/uL (0.0-0.5); EOS % 2.3 % (0.0-3.0); HEMATOCRIT 35.5 % (36.0-47.0); HEMOGLOBIN 10.7 g/dl (12.0-15.5); LYMPH # 1.2 10^3/uL (1.5-5.0); LYMPH % 9.8 % (24.0-44.0); MEAN CORPUSCULAR HEMOGLOBIN 27.1 pg (27.0-33.0); MEAN CORPUSCULAR HGB CONC 30.1 g/dl (32.0-36.5); MEAN CORPUSCULAR VOLUME 89.9 fl (80.0-96.0); MONO # 0.9 10^3/uL (0.0-0.8); MONO % 6.8 % (2.0-8.0); NEUTROPHILS # 10.1 10^3/uL (1.5-8.5); NEUTROPHILS % 80.4 % (36.0-66.0); PLATELET COUNT, AUTOMATED 404 10^3/uL (150-450); RED BLOOD COUNT 3.95 10^6/uL (4.00-5.40); WHITE BLOOD COUNT 12.6 10^3/uL (4.0-10.0)
[2021-07-02 15:47] LABS: ALBUMIN 3.4 GM/DL (3.2-5.2); BILIRUBIN,TOTAL 0.1 MG/DL (0.2-1.0); CALCIUM LEVEL 9.2 MG/DL (8.8-10.2); CHOLESTEROL RISK RATIO 3.115 (<5); CREATININE FOR GFR 1.15 MG/DL (0.55-1.30); FREE T4 0.97 NG/DL (0.76-1.46); GLOMERULAR FILTRATION RATE 50.7 (>45); POTASSIUM SERUM 4.2 MEQ/L (3.5-5.1); THYROID STIMULATING HORMONE 1.69 uIU/ML (0.358-3.740); TOTAL PROTEIN 7.1 GM/DL (6.4-8.2)
[2021-07-02 15:57] LABS: HEMOGLOBIN A1c 6.3 %
== END ==
LOC: M PLALAB 12:09
PROVIDERS: ATTEND Physician Assistant Medical
DX: E78.2 Mixed hyperlipidemia (principal); E66.01 Morbid (severe) obesity due to excess calories; E03.9 Hypothyroidism, unspecified; E53.8 Deficiency of other specified B group vitamins; Z79.899 Other long term (current) drug therapy

== ENCOUNTER 2021-07-04 17:01 | Emergency (ER) | payer MEDICARE, MEDICAID ==
[~2021-07-04] VITALS: Ht 152.4 cm; Wt 113.6 kg
[2021-07-04 17:02] VITALS: BP 193/91
== END 2021-07-04 17:20 | disposition left against medical advice (07) ==
LOC: M ED 17:01
DX: Z53.21 Procedure and treatment not carried out due to patient leaving prior to being seen by health care provider (principal)

== ENCOUNTER → 2021-07-04 | Outpatient (REF) | payer MEDICARE, MEDICAID ==
[2021-07-04 14:33] LABS: APPEARANCE, URINE CLEAR (CLEAR); BACTERIA, URINE AUTO NEGATIVE (NEGATIVE); BILIRUBIN, URINE AUTO NEGATIVE (NEGATIVE); BLOOD, URINE BLOOD NEGATIVE (NEGATIVE); GLUCOSE, URINE (UA) AUTO NEGATIVE (NEGATIVE); KETONE, URINE AUTO NEGATIVE (NEGATIVE); LEUKOCYTE ESTERASE, URINE AUTO NEGATIVE (NEGATIVE); MUCUS, URINE SMALL (NEGATIVE); NITRITE, URINE AUTO NEGATIVE (NEGATIVE); PROTEIN, URINE AUTO NEGATIVE (NEGATIVE); RBC, URINE AUTO 0 /HPF (0-3); SPECIFIC GRAVITY URINE AUTO 1.008 (1.002-1.035); SQUAMOUS EPITHELIAL CELL UR AU 1 /HPF (0-6); UROBILINOGEN, URINE AUTO 0.2 mg/dL (0.0-2.0); WBC, URINE AUTO 1 /HPF (0-3)
[2021-07-04 14:34] LABS: COLOR, URINE YELLOW (YELLOW)
== END ==
LOC: M SFHCPLAZ 14:07
PROVIDERS: ATTEND Physician Assistant Medical
DX: Z00.00 Encounter for general adult medical examination without abnormal findings (principal)

== ENCOUNTER → 2021-07-12 | Outpatient (CLI) | payer MEDICARE, MEDICAID | LOC: M PLAIMG 13:38 | PROVIDERS: ATTEND Physician Assistant Medical | DX: Z00.00 Encounter for general adult medical examination without abnormal findings (principal) ==

== ENCOUNTER → 2021-08-05 | Outpatient (CLI) | payer MEDICARE, MEDICAID | LOC: M PLAIMG 10:08 | PROVIDERS: ATTEND Physician Assistant Medical | DX: Z00.00 Encounter for general adult medical examination without abnormal findings (principal) ==

== ENCOUNTER → 2021-09-12 | Outpatient (CLI) | payer MEDICARE, MEDICAID ==
[2021-09-12 13:58] LABS: ALBUMIN 3.8 GM/DL (3.2-5.2); BILIRUBIN,TOTAL 0.2 MG/DL (0.2-1.0); CALCIUM LEVEL 9.7 MG/DL (8.8-10.2); CREATININE FOR GFR 1.11 MG/DL (0.55-1.30); GLOMERULAR FILTRATION RATE 52.8 (>45); POTASSIUM SERUM 4.2 MEQ/L (3.5-5.1); TOTAL PROTEIN 7.7 GM/DL (6.4-8.2)
== END ==
LOC: M PLALAB 11:40
PROVIDERS: ATTEND Physician Assistant Medical
DX: E11.9 Type 2 diabetes mellitus without complications (principal)

== ENCOUNTER 2021-09-14 02:11 | Emergency (ER) | payer MEDICARE, MEDICAID ==
[~2021-09-14] VITALS: Ht 152.4 cm; Wt 97.3 kg
[2021-09-14] MEDS ORDERED: ONDANSETRON 4MG/2ML VIAL IV ONE (02:35)
[2021-09-14] MEDS ORDERED: MORPHINE 4 MG/ML 1ML VIAL/SYRINGE IV ONE (02:35)
[2021-09-14 02:39] LABS: BASO % 0.4 % (0.0-1.0); EOS # 0.4 10^3/uL (0.0-0.5); EOS % 3.9 % (0.0-3.0); HEMATOCRIT 31.9 % (36.0-47.0); LYMPH # 1.7 10^3/uL (1.5-5.0); LYMPH % 15.7 % (24.0-44.0); MEAN CORPUSCULAR HEMOGLOBIN 27.2 pg (27.0-33.0); MEAN CORPUSCULAR HGB CONC 31.3 g/dl (32.0-36.5); MEAN CORPUSCULAR VOLUME 86.7 fl (80.0-96.0); MONO # 0.9 10^3/uL (0.0-0.8); MONO % 8.1 % (2.0-8.0); NEUTROPHILS # 7.7 10^3/uL (1.5-8.5); NEUTROPHILS % 71.7 % (36.0-66.0); PLATELET COUNT, AUTOMATED 379 10^3/uL (150-450); RED BLOOD COUNT 3.68 10^6/uL (4.00-5.40); WHITE BLOOD COUNT 10.7 10^3/uL (4.0-10.0)
[2021-09-14 03:08] LABS: CK-MB VALUE MASS 1.3 NG/ML (<3.6); MB/CK RELATIVE INDEX 0.87 (< OR =4)
[2021-09-14 03:16] LABS: CALCIUM LEVEL 9.1 MG/DL (8.8-10.2); CREATININE FOR GFR 1.16 MG/DL (0.55-1.30); GLOMERULAR FILTRATION RATE 50.2 (>45); POTASSIUM SERUM 4.5 MEQ/L (3.5-5.1)
[2021-09-14] MEDS ORDERED: ISOVUE-370 76% 100ML VIAL As Ordered ONE (03:20)
[2021-09-14 04:48] LABS: RSV AMPLIFICATION NEGATIVE (NEGATIVE)
[2021-09-14 05:05] VITALS: BP 136/62
== END 2021-09-14 06:38 | disposition home or self-care (01) ==
LOC: EDBD 02:11 → M ED 02:11
DX: R07.9 Chest pain, unspecified (principal); I10 Essential (primary) hypertension; E78.5 Hyperlipidemia, unspecified; K21.9 Gastro-esophageal reflux disease without esophagitis; Z88.5 Allergy status to narcotic agent; Z79.899 Other long term (current) drug therapy; Z79.811 Long term (current) use of aromatase inhibitors
CPT/HCPCS: 71045; 71275; 80048; 82550; 82553; 83880; 84484; 85025; 85379; 87631; 93005; 93041; 94760; 96374; 99285; J2270; J2405; Q9967

== ENCOUNTER → 2021-09-24 | Outpatient (REF) | payer MEDICARE, MEDICAID ==
[2021-09-24 11:26] LABS: APPEARANCE, URINE HAZY (CLEAR); BACTERIA, URINE AUTO 1+ (NEGATIVE); BILIRUBIN, URINE AUTO NEGATIVE (NEGATIVE); BLOOD, URINE BLOOD NEGATIVE (NEGATIVE); COLOR, URINE YELLOW (YELLOW); GLUCOSE, URINE (UA) AUTO NEGATIVE (NEGATIVE); KETONE, URINE AUTO NEGATIVE (NEGATIVE); LEUKOCYTE ESTERASE, URINE AUTO TRACE (NEGATIVE); MUCUS, URINE SMALL (NEGATIVE); NITRITE, URINE AUTO NEGATIVE (NEGATIVE); PROTEIN, URINE AUTO NEGATIVE (NEGATIVE); RBC, URINE AUTO 0 /HPF (0-3); SPECIFIC GRAVITY URINE AUTO 1.021 (1.002-1.035); SQUAMOUS EPITHELIAL CELL UR AU 2 /HPF (0-6); WBC, URINE AUTO 2 /HPF (0-3)
== END ==
PROVIDERS: ATTEND Physician Assistant Medical
DX: R30.0 Dysuria (principal)

== ENCOUNTER → 2021-09-25 | Outpatient (REF) | payer MEDICARE, MEDICAID ==
[2021-09-25 15:45] LABS: APPEARANCE, URINE CLEAR (CLEAR); BACTERIA, URINE AUTO NEGATIVE (NEGATIVE); BILIRUBIN, URINE AUTO NEGATIVE (NEGATIVE); BLOOD, URINE BLOOD NEGATIVE (NEGATIVE); COLOR, URINE YELLOW (YELLOW); GLUCOSE, URINE (UA) AUTO NEGATIVE (NEGATIVE); KETONE, URINE AUTO NEGATIVE (NEGATIVE); LEUKOCYTE ESTERASE, URINE AUTO NEGATIVE (NEGATIVE); NITRITE, URINE AUTO NEGATIVE (NEGATIVE); PROTEIN, URINE AUTO NEGATIVE (NEGATIVE); RBC, URINE AUTO 0 /HPF (0-3); SQUAMOUS EPITHELIAL CELL UR AU 4 /HPF (0-6); UROBILINOGEN, URINE AUTO 0.2 mg/dL (0.0-2.0); WBC, URINE AUTO 0 /HPF (0-3)
== END ==
PROVIDERS: ATTEND Physician Assistant Medical
DX: R30.0 Dysuria (principal)

== ENCOUNTER → 2021-09-30 | Outpatient (REF) | payer MEDICARE, MEDICAID | PROVIDERS: ATTEND Physician Assistant Medical | DX: R11.2 Nausea with vomiting, unspecified (principal) ==

== ENCOUNTER → 2021-10-09 | Outpatient (CLI) | payer MEDICARE, MEDICAID | LOC: M WHC 08:37 | PROVIDERS: ATTEND Physician Assistant | DX: K76.0 Fatty (change of) liver, not elsewhere classified (principal); R11.2 Nausea with vomiting, unspecified ==

== ENCOUNTER → 2021-10-09 | Outpatient (REF) | payer MEDICARE, MEDICAID ==
[~2021-10-09] MED LIST changes: +ACET-907 PO; +ACET1TAB55 PO; +ACET500T15 PO; +AZEL0.055; -AZEL0.055 NARES; +DICL1GEL3 TOP; +FAMO20TA PO; +FERR324T21 PO; +MAALSUS19 PO; +METF-838 PO; +NYST10CR EXT; +SPIR-10 PO; +TOPI25CA5 PO; +VITA500T73 PO
[2021-10-09 12:17] LABS: BASO # 0.1 10^3/uL (0.0-0.2); BASO % 0.5 % (0.0-1.0); EOS # 0.4 10^3/uL (0.0-0.5); EOS % 3.5 % (0.0-3.0); HEMOGLOBIN 10.7 g/dl (12.0-15.5); LYMPH # 1.2 10^3/uL (1.5-5.0); LYMPH % 11.5 % (24.0-44.0); MEAN CORPUSCULAR HEMOGLOBIN 27.2 pg (27.0-33.0); MEAN CORPUSCULAR HGB CONC 31.5 g/dl (32.0-36.5); MEAN CORPUSCULAR VOLUME 86.3 fl (80.0-96.0); MONO # 0.7 10^3/uL (0.0-0.8); MONO % 6.9 % (2.0-8.0); NEUTROPHILS # 8.2 10^3/uL (1.5-8.5); PLATELET COUNT, AUTOMATED 379 10^3/uL (150-450); RED BLOOD COUNT 3.94 10^6/uL (4.00-5.40); WHITE BLOOD COUNT 10.6 10^3/uL (4.0-10.0)
[2021-10-09 12:49] LABS: ALBUMIN 3.8 GM/DL (3.2-5.2); BILIRUBIN,TOTAL 0.3 MG/DL (0.2-1.0); CALCIUM LEVEL 9.8 MG/DL (8.8-10.2); CHOLESTEROL RISK RATIO 3.261 (<5); CREATININE FOR GFR 1.53 MG/DL (0.55-1.30); GLOMERULAR FILTRATION RATE 36.5 (>45); POTASSIUM SERUM 4.2 MEQ/L (3.5-5.1); TOTAL PROTEIN 7.4 GM/DL (6.4-8.2)
== END ==
PROVIDERS: ATTEND Physician Assistant
DX: R11.2 Nausea with vomiting, unspecified (principal); Z79.899 Other long term (current) drug therapy

== ENCOUNTER 2021-10-21 16:10 | Emergency (ER) | payer MEDICARE, MEDICAID ==
[~2021-10-21] VITALS: Ht 152.4 cm; Wt 117.0 kg
[~2021-10-21 16:10] MED LIST changes: -ACET-907 PO; -ACET1TAB55 PO; -ACET500T15 PO; -DICL1GEL3 TOP; -FAMO20TA PO; -FERR324T21 PO; -MAALSUS19 PO; -METF-838 PO; -NYST10CR EXT; -SPIR-10 PO; -TOPI25CA5 PO; -VITA500T73 PO
[2021-10-21] MEDS ORDERED: KETOROLAC 30 MG/ML 1ML VIAL IV ONE (17:15)
[2021-10-21] MEDS ORDERED: ONDANSETRON 4MG/2ML VIAL IV ONE (17:20)
[2021-10-21] MEDS ORDERED: NS 1,000 ML IV ONE (17:40)
[2021-10-21 17:47] LABS: ALBUMIN 3.8 GM/DL (3.2-5.2); ALT/SGPT 20 U/L (12-78); BILIRUBIN,DIRECT < 0.1 MG/DL (0.0-0.2); BILIRUBIN,TOTAL 0.2 MG/DL (0.2-1.0); LIPASE 93 U/L (73-393); TOTAL PROTEIN 8.3 GM/DL (6.4-8.2)
[2021-10-21] MEDS ORDERED: TOPI25CA5 PO (17:58)
[2021-10-21] MEDS ORDERED: DICL1GEL3 TOP (17:58)
[2021-10-21] MEDS ORDERED: ACET1TAB55 PO (17:58)
[2021-10-21] MEDS ORDERED: FERR324T21 PO (17:58)
[2021-10-21] MEDS ORDERED: ACET500T15 PO (17:58)
[2021-10-21] MEDS ORDERED: MAALSUS19 PO (17:58)
[2021-10-21] MEDS ORDERED: METF-838 PO (17:58)
[2021-10-21] MEDS ORDERED: VITA500T73 PO (17:58)
[2021-10-21] MEDS ORDERED: SPIR-10 PO (17:58)
[2021-10-21] MEDS ORDERED: FAMO20TA PO (17:58)
[2021-10-21] MEDS ORDERED: HOME MED LIST COMPLETE! XX SCH (18:00)
[2021-10-21 19:07] LABS: BASO # 0.1 10^3/uL (0.0-0.2); BASO % 0.5 % (0.0-1.0); EOS # 0.3 10^3/uL (0.0-0.5); EOS % 3.3 % (0.0-3.0); HEMATOCRIT 34.7 % (36.0-47.0); HEMOGLOBIN 10.8 g/dl (12.0-15.5); LYMPH # 1.1 10^3/uL (1.5-5.0); LYMPH % 10.9 % (24.0-44.0); MEAN CORPUSCULAR HEMOGLOBIN 26.7 pg (27.0-33.0); MEAN CORPUSCULAR HGB CONC 31.1 g/dl (32.0-36.5); MEAN CORPUSCULAR VOLUME 85.9 fl (80.0-96.0); MONO # 0.8 10^3/uL (0.0-0.8); MONO % 7.6 % (2.0-8.0); NEUTROPHILS # 8.1 10^3/uL (1.5-8.5); NEUTROPHILS % 77.4 % (36.0-66.0); PLATELET COUNT, AUTOMATED 388 10^3/uL (150-450); RED BLOOD COUNT 4.04 10^6/uL (4.00-5.40); WHITE BLOOD COUNT 10.5 10^3/uL (4.0-10.0)
[2021-10-21 21:45] VITALS: BP 120/65
== END 2021-10-21 22:17 | disposition home or self-care (01) ==
LOC: M ED 16:10 → EDBD 16:10 → M ED 22:17
DX: N17.9 Acute kidney failure, unspecified (principal); R10.9 Unspecified abdominal pain; E11.9 Type 2 diabetes mellitus without complications; I10 Essential (primary) hypertension; K21.9 Gastro-esophageal reflux disease without esophagitis; Z88.5 Allergy status to narcotic agent
CPT/HCPCS: 36415; 74176; 76705; 80047; 80076; 83690; 84484; 85025; 96361; 96374; 96375; 99284; J1885; J2405

== ENCOUNTER 2021-10-25 00:40 | Emergency (ER) | payer MEDICARE, MEDICAID ==
[~2021-10-25] VITALS: Ht 157.5 cm; Wt 127.0 kg
[~2021-10-25 00:40] MED LIST changes: +ACET1TAB55 PO; +ACET500T15 PO; +DICL1GEL3 TOP; +FAMO20TA PO; +FERR324T21 PO; +MAALSUS19 PO; +METF-838 PO; +SPIR-10 PO; +TOPI25CA5 PO; +VITA500T73 PO
[2021-10-25] MEDS ORDERED: ACET-907 PO (01:25)
[2021-10-25] MEDS ORDERED: NYST10CR EXT (01:25)
[2021-10-25] MEDS ORDERED: HOME MED LIST COMPLETE! XX SCH (01:30)
[2021-10-25 01:37] LABS: BASO % 0.5 % (0.0-1.0); EOS # 0.3 10^3/uL (0.0-0.5); EOS % 3.8 % (0.0-3.0); HEMATOCRIT 32.6 % (36.0-47.0); HEMOGLOBIN 10.2 g/dl (12.0-15.5); LYMPH # 1.5 10^3/uL (1.5-5.0); LYMPH % 17.2 % (24.0-44.0); MEAN CORPUSCULAR HEMOGLOBIN 27.3 pg (27.0-33.0); MEAN CORPUSCULAR HGB CONC 31.3 g/dl (32.0-36.5); MEAN CORPUSCULAR VOLUME 87.4 fl (80.0-96.0); MONO # 0.7 10^3/uL (0.0-0.8); MONO % 7.9 % (2.0-8.0); NEUTROPHILS % 70.2 % (36.0-66.0); PLATELET COUNT, AUTOMATED 366 10^3/uL (150-450); RED BLOOD COUNT 3.73 10^6/uL (4.00-5.40); WHITE BLOOD COUNT 8.5 10^3/uL (4.0-10.0)
[2021-10-25 02:00] LABS: ALBUMIN 3.3 GM/DL (3.2-5.2); BILIRUBIN,DIRECT 0.2 MG/DL (0.0-0.2); BILIRUBIN,TOTAL 0.2 MG/DL (0.2-1.0); CALCIUM LEVEL 9.2 MG/DL (8.8-10.2); CREATININE FOR GFR 1.09 MG/DL (0.55-1.30); POTASSIUM SERUM 4.4 MEQ/L (3.5-5.1); TOTAL PROTEIN 6.9 GM/DL (6.4-8.2)
[2021-10-25 05:38] VITALS: BP 114/54
== END 2021-10-25 05:46 | disposition home or self-care (01) ==
LOC: M ED 00:40
DX: R10.9 Unspecified abdominal pain (principal); E11.9 Type 2 diabetes mellitus without complications; E78.5 Hyperlipidemia, unspecified; K21.9 Gastro-esophageal reflux disease without esophagitis; E03.9 Hypothyroidism, unspecified; Z88.5 Allergy status to narcotic agent; Z79.811 Long term (current) use of aromatase inhibitors; Z79.4 Long term (current) use of insulin; Z79.899 Other long term (current) drug therapy

== ENCOUNTER → 2021-11-04 | Outpatient (CLI) | payer MEDICARE, MEDICAID ==
[~2021-11-04] MED LIST changes: +ACET-907 PO; +NYST10CR EXT
== END ==
LOC: M WHC 09:52
PROVIDERS: ATTEND Physician Assistant Medical
DX: Z12.31 Encounter for screening mammogram for malignant neoplasm of breast (principal); M81.0 Age-related osteoporosis without current pathological fracture

== ENCOUNTER 2021-11-11 18:45 | Emergency (ER) | payer MEDICARE, MEDICAID ==
[~2021-11-11] VITALS: Ht 152.4 cm; Wt 125.9 kg
[2021-11-11 18:54] VITALS: BP 142/79
[2021-11-11] MEDS ORDERED: ACETAMINOPHEN 325 MG TAB PO ONE (19:50)
[2021-11-11] MEDS ORDERED: MILKSUS3 PO (20:08)
[2021-11-11] MEDS ORDERED: TOPI25TA10 PO (20:12)
[2021-11-11] MEDS ORDERED: HOME MED LIST COMPLETE! XX SCH (20:15)
== END 2021-11-11 20:59 | disposition home or self-care (01) ==
LOC: M ED 18:45
DX: M79.645 Pain in left finger(s) (principal); I10 Essential (primary) hypertension; K21.9 Gastro-esophageal reflux disease without esophagitis; Z88.5 Allergy status to narcotic agent; Z79.811 Long term (current) use of aromatase inhibitors; Z79.899 Other long term (current) drug therapy; Z79.84 Long term (current) use of oral hypoglycemic drugs

== ENCOUNTER → 2021-12-17 | Outpatient (REF) | payer MEDICARE, MEDICAID ==
[~2021-12-17] MED LIST changes: +MILKSUS3 PO; +NYST-13 EXT; -NYST10CR EXT; +TOPI25TA10 PO
== END ==
PROVIDERS: ATTEND Physician Assistant Medical
DX: Z20.822 Contact with and (suspected) exposure to COVID-19 (principal)

== ENCOUNTER → 2021-12-19 | Outpatient (CLI) | payer MEDICARE, MEDICAID ==
[2021-12-19 20:39] LABS: HEMOGLOBIN A1c 5.8 %
== END ==
LOC: M PLAIMG 12:02
PROVIDERS: ATTEND Physician Assistant Medical
DX: M19.042 Primary osteoarthritis, left hand (principal); M25.532 Pain in left wrist; E11.9 Type 2 diabetes mellitus without complications

== ENCOUNTER → 2021-12-22 | Outpatient (REF) | payer MEDICARE, MEDICAID | PROVIDERS: ATTEND Physician Assistant Medical | DX: Z20.822 Contact with and (suspected) exposure to COVID-19 (principal) ==

== ENCOUNTER → 2021-12-23 | Outpatient (REF) | payer MEDICARE, MEDICAID ==
[2021-12-23 16:13] LABS: HEMOGLOBIN A1c 6.1 %
== END ==
PROVIDERS: ATTEND Physician Assistant Medical
DX: E11.9 Type 2 diabetes mellitus without complications (principal)

== ENCOUNTER → 2022-01-01 | Outpatient (REF) | payer MEDICARE, MEDICAID ==
[2022-01-01 10:46] LABS: BASO % 0.4 % (0.0-1.0); EOS # 0.3 10^3/uL (0.0-0.5); EOS % 4.1 % (0.0-3.0); HEMATOCRIT 32.3 % (36.0-47.0); LYMPH # 1.1 10^3/uL (1.5-5.0); LYMPH % 14.5 % (24.0-44.0); MEAN CORPUSCULAR HEMOGLOBIN 27.9 pg (27.0-33.0); MONO # 0.6 10^3/uL (0.0-0.8); MONO % 8.2 % (2.0-8.0); NEUTROPHILS # 5.7 10^3/uL (1.5-8.5); NEUTROPHILS % 72.7 % (36.0-66.0); PLATELET COUNT, AUTOMATED 381 10^3/uL (150-450); RED BLOOD COUNT 3.59 10^6/uL (4.00-5.40); WHITE BLOOD COUNT 7.8 10^3/uL (4.0-10.0)
[2022-01-01 12:47] LABS: ALBUMIN 3.5 GM/DL (3.2-5.2); BILIRUBIN,TOTAL 0.2 MG/DL (0.2-1.0); C REACTIVE PROTEIN QUANTITATIV 1.28 MG/DL (0.00-0.30); CALCIUM LEVEL 9.1 MG/DL (8.8-10.2); CREATININE FOR GFR 1.53 MG/DL (0.55-1.30); GLOMERULAR FILTRATION RATE 36.5 (>45); POTASSIUM SERUM 6.1 MEQ/L (3.5-5.1); TOTAL PROTEIN 6.8 GM/DL (6.4-8.2)
== END ==
PROVIDERS: ATTEND Nurse Practitioner Family
DX: R10.32 Left lower quadrant pain (principal)

== ENCOUNTER → 2022-01-03 | Outpatient (CLI) | payer MEDICARE, MEDICAID | LOC: M PLAIMG 10:12 | PROVIDERS: ATTEND Nurse Practitioner Family | DX: R10.32 Left lower quadrant pain (principal) ==

== ENCOUNTER → 2022-01-05 | Outpatient (REF) | payer MEDICARE, MEDICAID | LOC: M SFHCPLAZ 10:15 | PROVIDERS: ATTEND Nurse Practitioner Family | DX: R19.7 Diarrhea, unspecified (principal) ==

== ENCOUNTER → 2022-01-06 | Outpatient (REF) | payer MEDICARE, MEDICAID ==
[2022-01-06 12:28] LABS: ALBUMIN 3.5 GM/DL (3.2-5.2); CALCIUM LEVEL 8.7 MG/DL (8.8-10.2); CREATININE FOR GFR 1.32 MG/DL (0.55-1.30); GLOMERULAR FILTRATION RATE 43.3 (>45); PHOSPHORUS LEVEL 4.1 MG/DL (2.5-4.9); POTASSIUM SERUM 5.1 MEQ/L (3.5-5.1)
== END ==
PROVIDERS: ATTEND Physician Assistant Medical
DX: N17.9 Acute kidney failure, unspecified (principal)

== ENCOUNTER → 2022-01-23 | Outpatient (REF) | payer MEDICARE, MEDICAID | PROVIDERS: ATTEND Physician Assistant Medical | DX: Z20.822 Contact with and (suspected) exposure to COVID-19 (principal) ==

== ENCOUNTER → 2022-02-13 | Outpatient (REF) | payer MEDICARE, MEDICAID ==
[2022-02-13 15:01] LABS: APPEARANCE, URINE MANUAL CLEAR (CLEAR); BILIRUBIN, URINE MANUAL NEGATIVE (NEGATIVE); COLOR, URINE MANUAL YELLOW (YELLOW); GLUCOSE, URINE (UA) MANUAL NEGATIVE (NEGATIVE); KETONE, URINE MANUAL NEGATIVE (NEGATIVE); NITRITE, URINE MANUAL NEGATIVE (NEGATIVE); PROTEIN, URINE MANUAL NEGATIVE (NEGATIVE); UROBILINOGEN, URINE MANUAL NORMAL (NORMAL)
[2022-02-13 15:02] LABS: BLOOD URINE MANUAL NEGATIVE (NEGATIVE); LEUKOCYTE ESTERASE, URINE MAN POSITIVE (NEGATIVE)
[2022-02-13 15:52] LABS: BACTERIA, URINE MOD AMOUNT; HYALINE CAST, URINE NONE SEEN /lpf (0-1); SQUAMOUS EPITHELIAL CELL URINE MOD AMOUNT /hpf (SMALL AMT)
== END ==
LOC: M SFHCPLAZ 14:11
PROVIDERS: ATTEND Physician Assistant Medical
DX: R39.15 Urgency of urination (principal)

== ENCOUNTER → 2022-02-17 | Outpatient (REF) | payer MEDICARE, MEDICAID ==
[2022-02-18 11:05] LABS: APPEARANCE, URINE MANUAL CLEAR (CLEAR); COLOR, URINE MANUAL YELLOW (YELLOW)
[2022-02-18 11:06] LABS: BILIRUBIN, URINE MANUAL NEGATIVE (NEGATIVE); BLOOD URINE MANUAL NEGATIVE (NEGATIVE); GLUCOSE, URINE (UA) MANUAL NEGATIVE (NEGATIVE); KETONE, URINE MANUAL NEGATIVE (NEGATIVE); LEUKOCYTE ESTERASE, URINE MAN NEGATIVE (NEGATIVE); NITRITE, URINE MANUAL NEGATIVE (NEGATIVE); PROTEIN, URINE MANUAL NEGATIVE (NEGATIVE); SPECIFIC GRAVITY,URINE MANUAL 1.005 (1.002-1.035); UROBILINOGEN, URINE MANUAL NORMAL (NORMAL)
== END ==
PROVIDERS: ATTEND Physician Assistant Medical
DX: R30.9 Painful micturition, unspecified (principal)

== ENCOUNTER → 2022-02-19 | Outpatient (REF) | payer MEDICARE, MEDICAID ==
[2022-02-19 16:51] LABS: APPEARANCE, URINE MANUAL CLEAR (CLEAR); COLOR, URINE MANUAL LT YELLOW (YELLOW)
[2022-02-19 16:52] LABS: BILIRUBIN, URINE MANUAL NEGATIVE (NEGATIVE); BLOOD URINE MANUAL NEGATIVE (NEGATIVE); GLUCOSE, URINE (UA) MANUAL NEGATIVE (NEGATIVE); KETONE, URINE MANUAL NEGATIVE (NEGATIVE); NITRITE, URINE MANUAL NEGATIVE (NEGATIVE); PROTEIN, URINE MANUAL NEGATIVE (NEGATIVE); UROBILINOGEN, URINE MANUAL NORMAL (NORMAL)
[2022-02-19 16:53] LABS: LEUKOCYTE ESTERASE, URINE MAN NEGATIVE (NEGATIVE)
== END ==
PROVIDERS: ATTEND Physician Assistant Medical
DX: R30.9 Painful micturition, unspecified (principal); R10.9 Unspecified abdominal pain

== ENCOUNTER → 2022-02-24 | Outpatient (REF) | payer MEDICARE, MEDICAID | LOC: M SFHCPLAZ 17:15 | PROVIDERS: ATTEND Physician Assistant | DX: R10.30 Lower abdominal pain, unspecified (principal) ==

== ENCOUNTER 2022-02-28 11:48 | Emergency (ER) | payer MEDICARE, MEDICAID ==
[~2022-02-28] VITALS: Ht 152.4 cm; Wt 116.8 kg
[2022-02-28] MEDS ORDERED: ACETAMINOPHEN 500 MG TAB PO ONE (14:40)
[2022-02-28 15:12] VITALS: BP 135/64
== END 2022-02-28 15:14 | disposition home or self-care (01) ==
LOC: EDBD 11:48 → M ED 11:48
DX: S83.91XA Sprain of unspecified site of right knee, initial encounter (principal); M25.561 Pain in right knee; K21.9 Gastro-esophageal reflux disease without esophagitis; E78.5 Hyperlipidemia, unspecified; I10 Essential (primary) hypertension; E11.9 Type 2 diabetes mellitus without complications; F79 Unspecified intellectual disabilities; Z88.5 Allergy status to narcotic agent; Y92.199 Unspecified place in other specified residential institution as the place of occurrence of the external cause; Y93.9 Activity, unspecified; Z79.82 Long term (current) use of aspirin; Z79.811 Long term (current) use of aromatase inhibitors; Z79.4 Long term (current) use of insulin; Z79.899 Other long term (current) drug therapy

== ENCOUNTER → 2022-03-17 | Outpatient (CLI) | payer MEDICARE, MEDICAID ==
[~2022-03-17] MED LIST changes: +**SFHN** BUPIVACAINE HCL 0.5% 10ML VIAL ONE; +**SFHN** LIDOCAINE 1% MDV 20ML VIAL ONE; +ISOVUE-300 61% 50ML VIAL ONE; -NYST-13 EXT; +NYST-13 TOP; +methylPREDNISolone 80MG/ML SUSP 1ML VIAL (J1040) ONE
== END ==
LOC: M PLAIMG 14:43
PROVIDERS: ATTEND Orthopaedic Surgery Adult Reconstructive Orthopaedic Surgery
DX: M17.11 Unilateral primary osteoarthritis, right knee (principal)
CPT/HCPCS: 20610; 76000; J1040; Q9967

== ENCOUNTER 2022-03-20 15:43 | Emergency (ER) | payer MEDICARE, MEDICAID ==
[~2022-03-20] VITALS: Ht 152.4 cm; Wt 115.5 kg
[~2022-03-20 15:43] MED LIST changes: -**SFHN** BUPIVACAINE HCL 0.5% 10ML VIAL ONE; -**SFHN** LIDOCAINE 1% MDV 20ML VIAL ONE; -ISOVUE-300 61% 50ML VIAL ONE; -methylPREDNISolone 80MG/ML SUSP 1ML VIAL (J1040) ONE
[2022-03-20 16:38] LABS: BASO # 0.1 10^3/uL (0.0-0.2); BASO % 0.5 % (0.0-1.0); EOS # 0.3 10^3/uL (0.0-0.5); EOS % 2.6 % (0.0-3.0); HEMATOCRIT 36.1 % (36.0-47.0); HEMOGLOBIN 10.9 g/dl (12.0-15.5); LYMPH # 1.9 10^3/uL (1.5-5.0); LYMPH % 18.5 % (24.0-44.0); MEAN CORPUSCULAR HEMOGLOBIN 29.1 pg (27.0-33.0); MEAN CORPUSCULAR HGB CONC 30.2 g/dl (32.0-36.5); MEAN CORPUSCULAR VOLUME 96.5 fl (80.0-96.0); MONO % 9.5 % (2.0-8.0); NEUTROPHILS # 7.2 10^3/uL (1.5-8.5); NEUTROPHILS % 68.5 % (36.0-66.0); PLATELET COUNT, AUTOMATED 342 10^3/uL (150-450); RED BLOOD COUNT 3.74 10^6/uL (4.00-5.40); WHITE BLOOD COUNT 10.5 10^3/uL (4.0-10.0)
[2022-03-20 17:06] LABS: CK-MB VALUE MASS < 1.0 NG/ML (<3.6); CPK CREATINE PHOSPHOKINASE 51 U/L (26-192); MB/CK RELATIVE INDEX 1.96 (< OR =4)
[2022-03-20 17:08] LABS: ALBUMIN 3.5 GM/DL (3.2-5.2); ALT/SGPT 20 U/L (12-78); BILIRUBIN,DIRECT < 0.1 MG/DL (0.0-0.2); BILIRUBIN,TOTAL 0.1 MG/DL (0.2-1.0); BLOOD UREA NITROGEN 56 MG/DL (7-18); CALCIUM LEVEL 8.6 MG/DL (8.8-10.2); CARBON DIOXIDE LEVEL 21 MEQ/L (21-32); CHLORIDE LEVEL 113 MEQ/L (98-107); CREATININE FOR GFR 1.51 MG/DL (0.55-1.30); FREE T4 1.06 NG/DL (0.76-1.46); GLOMERULAR FILTRATION RATE 37.1 (>45); GLUCOSE, FASTING 101 MG/DL (70-100); LIPASE 95 U/L (73-393); NT-PRO BNP 64 PG/ML (<125); POTASSIUM SERUM 5.8 MEQ/L (3.5-5.1); SODIUM LEVEL 140 MEQ/L (136-145); THYROID STIMULATING HORMONE 0.643 uIU/ML (0.358-3.740); TOTAL PROTEIN 6.9 GM/DL (6.4-8.2)
[2022-03-20 18:20] LABS: CK-MB VALUE MASS < 1.0 NG/ML (<3.6); CPK CREATINE PHOSPHOKINASE 53 U/L (26-192); MB/CK RELATIVE INDEX 1.89 (< OR =4)
[2022-03-20] MEDS ORDERED: HOME MED LIST COMPLETE! XX SCH (18:20)
[2022-03-20] MEDS ORDERED: SOD POLYSTYRENE SULFONATE SUSP 15GM 60ML UD PO ONE (18:40)
[2022-03-20 18:53] VITALS: BP 132/77
== END 2022-03-20 19:03 | disposition home or self-care (01) ==
LOC: EDBD 15:43 → M ED 16:24
DX: R07.9 Chest pain, unspecified (principal); E87.5 Hyperkalemia; E11.9 Type 2 diabetes mellitus without complications; I44.4 Left anterior fascicular block; I10 Essential (primary) hypertension; E78.5 Hyperlipidemia, unspecified; K21.9 Gastro-esophageal reflux disease without esophagitis; Z88.5 Allergy status to narcotic agent; Z79.82 Long term (current) use of aspirin; Z79.4 Long term (current) use of insulin; Z79.811 Long term (current) use of aromatase inhibitors; Z79.899 Other long term (current) drug therapy

== ENCOUNTER → 2022-03-26 | Outpatient (REF) | payer MEDICARE, MEDICAID ==
[2022-03-26 11:17] LABS: ALBUMIN 3.3 G/DL (3.2-5.2); BILIRUBIN,TOTAL 0.2 MG/DL (0.3-1.2); CALCIUM LEVEL 8.9 MG/DL (8.3-10.6); CREATININE FOR GFR 1.2 MG/DL (0.55-1.30); GLOMERULAR FILTRATION RATE 48.3 (>45); POTASSIUM SERUM 5.3 MMOL/L (3.5-5.1)
== END ==
PROVIDERS: ATTEND Family Medicine
DX: I15.2 Hypertension secondary to endocrine disorders (principal)

== ENCOUNTER → 2022-03-26 | Outpatient (CLI) | payer MEDICARE, MEDICAID ==
[2022-03-26 18:10] LABS: APPEARANCE, URINE MANUAL CLEAR (CLEAR); BILIRUBIN, URINE MANUAL NEGATIVE (NEGATIVE); BLOOD URINE MANUAL NEGATIVE (NEGATIVE); COLOR, URINE MANUAL YELLOW (YELLOW); GLUCOSE, URINE (UA) MANUAL NEGATIVE (NEGATIVE); KETONE, URINE MANUAL NEGATIVE (NEGATIVE); LEUKOCYTE ESTERASE, URINE MAN TRACE (NEGATIVE); NITRITE, URINE MANUAL NEGATIVE (NEGATIVE); PH,URINE MAN 6.5 UNITS (5.0 - 7.0); PROTEIN, URINE MANUAL NEGATIVE (NEGATIVE); UROBILINOGEN, URINE MANUAL NORMAL (NORMAL)
[2022-03-26 18:36] LABS: BACTERIA, URINE SMALL AMOUNT; HYALINE CAST, URINE NONE SEEN /lpf (0-1); MUCUS, URINE LARGE AMOUNT (NEGATIVE); SQUAMOUS EPITHELIAL CELL URINE LARGE AMOUNT /hpf (SMALL AMT); WBC, URINE 15-20 /hpf (0-3)
== END ==
LOC: M PLAIMG 15:42
PROVIDERS: ATTEND Physician Assistant Medical
DX: M25.511 Pain in right shoulder (principal); N39.0 Urinary tract infection, site not specified; B96.1 Klebsiella pneumoniae [K. pneumoniae] as the cause of diseases classified elsewhere

== ENCOUNTER → 2022-04-02 | Outpatient (REF) | payer MEDICARE, MEDICAID ==
[2022-04-02 10:38] LABS: BASO % 0.3 % (0.0-1.0); EOS # 0.4 10^3/uL (0.0-0.5); EOS % 3.6 % (0.0-3.0); HEMATOCRIT 34.3 % (36.0-47.0); HEMOGLOBIN 10.6 g/dl (12.0-15.5); LYMPH # 1.8 10^3/uL (1.5-5.0); LYMPH % 17.3 % (24.0-44.0); MEAN CORPUSCULAR HEMOGLOBIN 28.9 pg (27.0-33.0); MEAN CORPUSCULAR HGB CONC 30.9 g/dl (32.0-36.5); MEAN CORPUSCULAR VOLUME 93.5 fl (80.0-96.0); MONO # 0.7 10^3/uL (0.0-0.8); MONO % 6.8 % (2.0-8.0); NEUTROPHILS # 7.5 10^3/uL (1.5-8.5); NEUTROPHILS % 71.7 % (36.0-66.0); PLATELET COUNT, AUTOMATED 430 10^3/uL (150-450); RED BLOOD COUNT 3.67 10^6/uL (4.00-5.40); WHITE BLOOD COUNT 10.5 10^3/uL (4.0-10.0)
[2022-04-02 11:29] LABS: CALCIUM LEVEL 9.1 MG/DL (8.3-10.6); CREATININE FOR GFR 1.07 MG/DL (0.55-1.30); FERRITIN 77.4 NG/ML (7.3-270.7); GLOMERULAR FILTRATION RATE 55.1 (>45); POTASSIUM SERUM 4.5 MMOL/L (3.5-5.1)
[2022-04-04 18:09] LABS: H PYLORI SERUM QUANT IGA <9.0 units (0.0-8.9); H PYLORI SERUM QUANT IGM <9.0 units (0.0-8.9)
== END ==
PROVIDERS: ATTEND Physician Assistant Medical
DX: D50.9 Iron deficiency anemia, unspecified (principal); E53.8 Deficiency of other specified B group vitamins; E87.5 Hyperkalemia

== ENCOUNTER → 2022-04-09 | Outpatient (REF) | payer MEDICARE, MEDICAID ==
[2022-04-09 12:04] LABS: HEMATOCRIT 36.7 % (36.0-47.0); HEMOGLOBIN 11.2 g/dl (12.0-15.5); MEAN CORPUSCULAR HEMOGLOBIN 28.6 pg (27.0-33.0); MEAN CORPUSCULAR HGB CONC 30.5 g/dl (32.0-36.5); MEAN CORPUSCULAR VOLUME 93.9 fl (80.0-96.0); PLATELET COUNT, AUTOMATED 441 10^3/uL (150-450); RED BLOOD COUNT 3.91 10^6/uL (4.00-5.40); WHITE BLOOD COUNT 8.8 10^3/uL (4.0-10.0)
[2022-04-09 12:56] LABS: CALCIUM LEVEL 9.1 MG/DL (8.3-10.6); CREATININE FOR GFR 1.1 MG/DL (0.55-1.30); GLOMERULAR FILTRATION RATE 53.4 (>45); POTASSIUM SERUM 3.8 MMOL/L (3.5-5.1)
== END ==
PROVIDERS: ATTEND Physician Assistant Medical
DX: E87.5 Hyperkalemia (principal); D50.9 Iron deficiency anemia, unspecified

== ENCOUNTER → 2022-04-25 | Outpatient (REF) | payer MEDICARE, MEDICAID ==
[2022-04-25 14:26] LABS: APPEARANCE, URINE MANUAL CLEAR (CLEAR); COLOR, URINE MANUAL YELLOW (YELLOW)
[2022-04-25 14:27] LABS: BILIRUBIN, URINE MANUAL NEGATIVE (NEGATIVE); BLOOD URINE MANUAL NEGATIVE (NEGATIVE); GLUCOSE, URINE (UA) MANUAL NEGATIVE (NEGATIVE); KETONE, URINE MANUAL NEGATIVE (NEGATIVE); LEUKOCYTE ESTERASE, URINE MAN NEGATIVE (NEGATIVE); NITRITE, URINE MANUAL NEGATIVE (NEGATIVE); PROTEIN, URINE MANUAL NEGATIVE (NEGATIVE); SPECIFIC GRAVITY,URINE MANUAL 1.015 (1.002-1.035); UROBILINOGEN, URINE MANUAL NORMAL (NORMAL)
== END ==
PROVIDERS: ATTEND Physician Assistant Medical
DX: R30.0 Dysuria (principal)

== ENCOUNTER 2022-05-08 17:40 | Emergency (ER) | payer MEDICARE, MEDICAID ==
[~2022-05-08] VITALS: Ht 152.4 cm; Wt 117.3 kg
[2022-05-08 17:50] VITALS: BP 148/80
== END 2022-05-08 19:00 | disposition left against medical advice (07) ==
LOC: M ED 17:40
DX: Z53.21 Procedure and treatment not carried out due to patient leaving prior to being seen by health care provider (principal)

== ENCOUNTER → 2022-05-20 | Outpatient (REF) | payer MEDICARE, MEDICAID ==
[2022-05-21 11:15] LABS: APPEARANCE, URINE MANUAL CLEAR (CLEAR); BILIRUBIN, URINE MANUAL NEGATIVE (NEGATIVE); BLOOD URINE MANUAL NEGATIVE (NEGATIVE); COLOR, URINE MANUAL LT YELLOW (YELLOW); GLUCOSE, URINE (UA) MANUAL NEGATIVE (NEGATIVE); KETONE, URINE MANUAL NEGATIVE (NEGATIVE); LEUKOCYTE ESTERASE, URINE MAN POSITIVE (NEGATIVE); NITRITE, URINE MANUAL NEGATIVE (NEGATIVE); PROTEIN, URINE MANUAL NEGATIVE (NEGATIVE); UROBILINOGEN, URINE MANUAL NORMAL (NORMAL)
[2022-05-21 12:06] LABS: AMORPHOUS SEDIMENT, URINE SMALL AMOUNT (NEGATIVE); BACTERIA, URINE SMALL AMOUNT; HYALINE CAST, URINE NONE SEEN /lpf (0-1); MUCUS, URINE SMALL AMOUNT (NEGATIVE); RBC, URINE 0-1 /hpf (0-3); SQUAMOUS EPITHELIAL CELL URINE LARGE AMOUNT /hpf (SMALL AMT)
== END ==
PROVIDERS: ATTEND Physician Assistant Medical
DX: R30.0 Dysuria (principal)

== ENCOUNTER → 2022-06-11 | Outpatient (REF) | payer MEDICARE, MEDICAID ==
[2022-06-11 11:38] LABS: BASO # 0.1 10^3/uL (0.0-0.2); BASO % 0.7 % (0.0-1.0); EOS # 0.4 10^3/uL (0.0-0.5); EOS % 4.4 % (0.0-3.0); HEMATOCRIT 37.6 % (36.0-47.0); HEMOGLOBIN 11.5 g/dl (12.0-15.5); LYMPH # 1.8 10^3/uL (1.5-5.0); LYMPH % 21.2 % (24.0-44.0); MEAN CORPUSCULAR HEMOGLOBIN 27.4 pg (27.0-33.0); MEAN CORPUSCULAR HGB CONC 30.6 g/dl (32.0-36.5); MEAN CORPUSCULAR VOLUME 89.7 fl (80.0-96.0); MONO # 0.7 10^3/uL (0.0-0.8); MONO % 7.5 % (2.0-8.0); NEUTROPHILS # 5.7 10^3/uL (1.5-8.5); NEUTROPHILS % 65.7 % (36.0-66.0); PLATELET COUNT, AUTOMATED 384 10^3/uL (150-450); RED BLOOD COUNT 4.19 10^6/uL (4.00-5.40); WHITE BLOOD COUNT 8.7 10^3/uL (4.0-10.0)
[2022-06-11 12:05] LABS: CALCIUM LEVEL 9.3 MG/DL (8.3-10.6); CREATININE FOR GFR 1.09 MG/DL (0.55-1.30); GLOMERULAR FILTRATION RATE 53.8 (>45); POTASSIUM SERUM 3.8 MMOL/L (3.5-5.1)
[2022-06-11 12:10] LABS: FERRITIN 29.4 NG/ML (7.3-270.7)
[2022-06-12 17:07] LABS: H PYLORI SERUM QUANT IGA <9.0 units (0.0-8.9); H PYLORI SERUM QUANT IGM <9.0 units (0.0-8.9)
== END ==
PROVIDERS: ATTEND Physician Assistant Medical
DX: E87.5 Hyperkalemia (principal); D50.9 Iron deficiency anemia, unspecified; E53.8 Deficiency of other specified B group vitamins

== ENCOUNTER → 2022-07-04 | Outpatient (REF) | payer MEDICARE, MEDICAID | PROVIDERS: ATTEND Physician Assistant Medical | DX: D50.9 Iron deficiency anemia, unspecified (principal) ==

== ENCOUNTER → 2022-07-07 | Outpatient (REF) | payer MEDICARE, MEDICAID | LOC: M SFHCPLAZ 15:16 | PROVIDERS: ATTEND Physician Assistant Medical | DX: D50.9 Iron deficiency anemia, unspecified (principal) ==

== ENCOUNTER → 2022-07-08 | Outpatient (REF) | payer MEDICARE, MEDICAID | LOC: M SFHCPLAZ 14:51 | PROVIDERS: ATTEND Physician Assistant Medical | DX: D50.9 Iron deficiency anemia, unspecified (principal) ==

== ENCOUNTER 2022-08-15 18:35 | Emergency (ER) | payer MEDICARE, MEDICAID ==
[~2022-08-15] VITALS: Ht 152.4 cm; Wt 124.4 kg
[2022-08-15 19:05] VITALS: BP 127/63
[2022-08-15] MEDS ORDERED: NITROGLYCERIN 0.4MG SUBL TABLET SL PRN (19:05)
[2022-08-15 19:29] LABS: BASO % 0.4 % (0.0-1.0); EOS # 0.6 10^3/uL (0.0-0.5); EOS % 6.6 % (0.0-3.0); HEMATOCRIT 37.9 % (36.0-47.0); HEMOGLOBIN 12.1 g/dl (12.0-15.5); LYMPH # 1.3 10^3/uL (1.5-5.0); LYMPH % 14.1 % (24.0-44.0); MEAN CORPUSCULAR HEMOGLOBIN 27.3 pg (27.0-33.0); MEAN CORPUSCULAR HGB CONC 31.9 g/dl (32.0-36.5); MEAN CORPUSCULAR VOLUME 85.4 fl (80.0-96.0); MONO # 0.6 10^3/uL (0.0-0.8); MONO % 6.5 % (2.0-8.0); NEUTROPHILS # 6.8 10^3/uL (1.5-8.5); NEUTROPHILS % 72.1 % (36.0-66.0); PLATELET COUNT, AUTOMATED 376 10^3/uL (150-450); RED BLOOD COUNT 4.44 10^6/uL (4.00-5.40); WHITE BLOOD COUNT 9.4 10^3/uL (4.0-10.0)
[2022-08-15 19:40] LABS: INR 0.9; PROTHROMBIN TIME 12.3 SECONDS (12.5-14.5)
[2022-08-15 19:41] LABS: PARTIAL THROMBOPLASTIN TIME 27.1 SECONDS (24.8-34.2)
[2022-08-15 20:02] LABS: CK-MB VALUE MASS < 1.0 NG/ML (<3.6); LIPASE 26 U/L (12-53)
[2022-08-15 20:03] LABS: ALBUMIN 3.7 G/DL (3.2-5.2); ALKALINE PHOSPHATASE 119 U/L (46-116); ALT/SGPT < 9 U/L (7.0-40); AST/SGOT 12 U/L (<34); BILIRUBIN,DIRECT < 0.1 MG/DL (<0.4); BILIRUBIN,TOTAL 0.2 MG/DL (0.3-1.2); BLOOD UREA NITROGEN 39 MG/DL (9-23); CALCIUM LEVEL 9.2 MG/DL (8.3-10.6); CARBON DIOXIDE LEVEL 30 MMOL/L (20-31); CHLORIDE LEVEL 106 MMOL/L (98-107); CPK CREATINE PHOSPHOKINASE 78 U/L (34-145); CREATININE FOR GFR 1.09 MG/DL (0.55-1.30); GLOMERULAR FILTRATION RATE 53.8 (>45); GLUCOSE, FASTING 127 MG/DL (74-106); MB/CK RELATIVE INDEX 1.28 (< OR =4); POTASSIUM SERUM 3.7 MMOL/L (3.5-5.1); SODIUM LEVEL 141 MMOL/L (136-145); TOTAL PROTEIN 6.9 G/DL (5.7-8.2)
[2022-08-15 20:05] VITALS: BP 122/78
[2022-08-15 20:05] LABS: FREE T4 1.07 NG/DL (0.89-1.76); THYROID STIMULATING HORMONE 1.895 uIU/ML (0.55-4.78)
[2022-08-15] MEDS ORDERED: ISOVUE-370 76% 100ML VIAL As Ordered ONE (20:17)
[2022-08-15 20:55] LABS: CK-MB VALUE MASS < 1.0 NG/ML (<3.6)
[2022-08-15 21:00] LABS: CPK CREATINE PHOSPHOKINASE 68 U/L (34-145); MB/CK RELATIVE INDEX 1.47 (< OR =4)
== END 2022-08-15 22:25 | disposition home or self-care (01) ==
LOC: M ED 18:35
DX: R07.9 Chest pain, unspecified (principal); E78.5 Hyperlipidemia, unspecified; I10 Essential (primary) hypertension; E03.9 Hypothyroidism, unspecified; F70 Mild intellectual disabilities; M19.91 Primary osteoarthritis, unspecified site; R73.01 Impaired fasting glucose; Z88.5 Allergy status to narcotic agent
CPT/HCPCS: 36415; 71046; 71275; 80048; 80076; 82550; 82553; 83690; 84439; 84443; 84484; 85025; 85610; 85730; 93005; 93041; 94760; 99285; Q9967

== ENCOUNTER 2022-11-03 11:19 | Emergency (ER) | payer MEDICARE, MEDICAID ==
[2022-11-03 12:43] VITALS: BP 146/85; TEMP 97.9; O2SAT 97
[2022-11-03 13:55] LABS: BASO # 0.1 10^3/uL (0.0-0.2); BASO % 0.5 % (0.0-1.0); EOS # 0.3 10^3/uL (0.0-0.5); EOS % 2.3 % (0.0-3.0); HEMATOCRIT 39.1 % (36.0-47.0); HEMOGLOBIN 12.8 g/dl (12.0-15.5); LYMPH # 1.4 10^3/uL (1.5-5.0); LYMPH % 12.6 % (24.0-44.0); MEAN CORPUSCULAR HEMOGLOBIN 28.1 pg (27.0-33.0); MEAN CORPUSCULAR HGB CONC 32.7 g/dl (32.0-36.5); MEAN CORPUSCULAR VOLUME 85.7 fl (80.0-96.0); MONO # 0.7 10^3/uL (0.0-0.8); MONO % 6.2 % (2.0-8.0); NEUTROPHILS # 8.6 10^3/uL (1.5-8.5); NEUTROPHILS % 78.1 % (36.0-66.0); PLATELET COUNT, AUTOMATED 367 10^3/uL (150-450); RED BLOOD COUNT 4.56 10^6/uL (4.00-5.40)
[2022-11-03 14:18] LABS: CK-MB VALUE MASS < 1.0 NG/ML (<3.6)
[2022-11-03 14:20] LABS: BLOOD UREA NITROGEN 33 MG/DL (9-23); CALCIUM LEVEL 9.3 MG/DL (8.3-10.6); CARBON DIOXIDE LEVEL 26 MMOL/L (20-31); CHLORIDE LEVEL 103 MMOL/L (98-107); CREATININE FOR GFR 0.95 MG/DL (0.55-1.30); GLOMERULAR FILTRATION RATE > 60.0 (>45); GLUCOSE, FASTING 108 MG/DL (74-106); POTASSIUM SERUM 3.5 MMOL/L (3.5-5.1); SODIUM LEVEL 140 MMOL/L (136-145)
[2022-11-03 14:28] LABS: CPK CREATINE PHOSPHOKINASE 88 U/L (34-145); MB/CK RELATIVE INDEX 1.13 (< OR =4)
[2022-11-03 14:58] LABS: CK-MB VALUE MASS < 1.0 NG/ML (<3.6)
[2022-11-03 15:03] LABS: CPK CREATINE PHOSPHOKINASE 100 U/L (34-145)
== END 2022-11-03 15:39 | disposition home or self-care (01) ==
LOC: M ED 11:19
DX: F41.9 Anxiety disorder, unspecified (principal); S93.402A Sprain of unspecified ligament of left ankle, initial encounter; I10 Essential (primary) hypertension; E78.5 Hyperlipidemia, unspecified; M19.90 Unspecified osteoarthritis, unspecified site; E03.9 Hypothyroidism, unspecified; Z88.5 Allergy status to narcotic agent; Z79.811 Long term (current) use of aromatase inhibitors; Z79.899 Other long term (current) drug therapy

== ENCOUNTER → 2022-11-05 | Outpatient (REF) | payer MEDICARE, MEDICAID ==
[2022-11-05 08:47] LABS: HEMOGLOBIN A1c 5.8 % (4.0-6.0)
[2022-11-05 08:52] LABS: THYROID STIMULATING HORMONE 2.433 uIU/ML (0.55-4.78)
[2022-11-05 08:53] LABS: FREE T4 1.12 NG/DL (0.89-1.76)
[2022-11-06 16:08] LABS: H PYLORI SERUM QUANT IGA <9.0 units (0.0-8.9); H PYLORI SERUM QUANT IGM <9.0 units (0.0-8.9); H PYLORI SERUM QUANT IgG ABY 0.45 (0.00-0.79)
== END ==
PROVIDERS: ATTEND Physician Assistant Medical
DX: R63.5 Abnormal weight gain (principal); D50.9 Iron deficiency anemia, unspecified; Z79.899 Other long term (current) drug therapy

== ENCOUNTER → 2022-11-05 | Outpatient (CLI) | payer MEDICARE, MEDICAID | LOC: M WHC 09:46 | PROVIDERS: ATTEND Physician Assistant Medical | DX: Z12.39 Encounter for other screening for malignant neoplasm of breast (principal); Z12.31 Encounter for screening mammogram for malignant neoplasm of breast ==

== ENCOUNTER → 2022-12-10 | Outpatient (CLI) | payer MEDICARE, MEDICAID ==
[~2022-12-10] MED LIST changes: +CALC500T31 PO; +CITA20TA6 PO; +DICL100G10 TOP; -DICL1GEL3 TOP; +LACT20EL PO; +OMEP1CAP73 PO; +SIME180C25 PO
[2022-12-10 15:07] LABS: BASO % 0.3 % (0.0-1.0); EOS # 0.3 10^3/uL (0.0-0.5); EOS % 2.6 % (0.0-3.0); HEMATOCRIT 39.5 % (36.0-47.0); HEMOGLOBIN 12.1 g/dl (12.0-15.5); LYMPH # 1.4 10^3/uL (1.5-5.0); LYMPH % 14.6 % (24.0-44.0); MEAN CORPUSCULAR HEMOGLOBIN 27.4 pg (27.0-33.0); MEAN CORPUSCULAR HGB CONC 30.6 g/dl (32.0-36.5); MEAN CORPUSCULAR VOLUME 89.6 fl (80.0-96.0); MONO # 0.6 10^3/uL (0.0-0.8); MONO % 5.8 % (2.0-8.0); NEUTROPHILS # 7.4 10^3/uL (1.5-8.5); NEUTROPHILS % 76.5 % (36.0-66.0); PLATELET COUNT, AUTOMATED 344 10^3/uL (150-450); RED BLOOD COUNT 4.41 10^6/uL (4.00-5.40); WHITE BLOOD COUNT 9.7 10^3/uL (4.0-10.0)
[2022-12-10 16:07] LABS: FERRITIN 32.7 NG/ML (7.3-270.7)
== END ==
LOC: M PLALAB 10:45
PROVIDERS: ATTEND Physician Assistant Medical
DX: D50.9 Iron deficiency anemia, unspecified (principal); E53.8 Deficiency of other specified B group vitamins

== ENCOUNTER 2022-12-22 09:07 | Day surgery (SDC) | payer MEDICARE, MEDICAID ==
[~2022-12-22] VITALS: Ht 152.4 cm; Wt 123.8 kg
[~2022-12-22 09:07] MED LIST changes: +NS 1,000 ML IV ONE
[2022-12-22] MEDS ORDERED: propofoL 500 MG/50 ML VIAL As Ordered ONE (10:22)
[2022-12-22] MEDS ORDERED: fentaNYL 100 MCG/2 ML INJECTION As Ordered ONE (10:27)
[2022-12-22] MEDS ORDERED: LIDOCAINE 2% 100MG/5ML SDV (FOR ANES.) As Ordered ONE (10:28)
[2022-12-22 12:21] VITALS: TEMP 98.4
[2022-12-22 12:53] VITALS: BP 139/78; O2SAT 94
== END 2022-12-22 13:37 | disposition home or self-care (01) ==
LOC: M OPP 09:07
PROVIDERS: ATTEND Internal Medicine Gastroenterology
DX: Z86.010 Personal history of colon polyps (principal); D12.5 Benign neoplasm of sigmoid colon; K63.5 Polyp of colon; K64.8 Other hemorrhoids; K57.30 Diverticulosis of large intestine without perforation or abscess without bleeding; K44.9 Diaphragmatic hernia without obstruction or gangrene; K31.7 Polyp of stomach and duodenum; D50.9 Iron deficiency anemia, unspecified; Z79.02 Long term (current) use of antithrombotics/antiplatelets; Z79.1 Long term (current) use of non-steroidal anti-inflammatories (NSAID); Z79.890 Hormone replacement therapy; Z79.899 Other long term (current) drug therapy
CPT/HCPCS: 43251; 45385; 88305; J3010

== ENCOUNTER → 2023-01-09 | Outpatient (REF) | payer MEDICARE, MEDICAID ==
[~2023-01-09] MED LIST changes: -NS 1,000 ML IV ONE
[2023-01-09 14:00] LABS: APPEARANCE, URINE CLEAR (CLEAR); BACTERIA, URINE AUTO NEGATIVE (NEGATIVE); BILIRUBIN, URINE AUTO NEGATIVE (NEGATIVE); BLOOD, URINE BLOOD NEGATIVE (NEGATIVE); COLOR, URINE YELLOW (YELLOW); GLUCOSE, URINE (UA) AUTO NEGATIVE (NEGATIVE); KETONE, URINE AUTO NEGATIVE (NEGATIVE); LEUKOCYTE ESTERASE, URINE AUTO TRACE (NEGATIVE); NITRITE, URINE AUTO NEGATIVE (NEGATIVE); PROTEIN, URINE AUTO NEGATIVE (NEGATIVE); RBC, URINE AUTO 0 /HPF (0-3); SPECIFIC GRAVITY URINE AUTO 1.025 (1.002-1.035); SQUAMOUS EPITHELIAL CELL UR AU 2 /HPF (0-6); UROBILINOGEN, URINE AUTO 0.2 mg/dL (0.0-2.0); WBC, URINE AUTO 1 /HPF (0-3)
== END ==
PROVIDERS: ATTEND Physician Assistant Medical
DX: R30.0 Dysuria (principal)

== ENCOUNTER → 2023-02-09 | Outpatient (CLI) | payer MEDICARE, MEDICAID | LOC: M WHC 11:58 | PROVIDERS: ATTEND Nurse Practitioner Family | DX: N95.0 Postmenopausal bleeding (principal) ==

== ENCOUNTER 2023-04-24 13:22 | Emergency (ER) | payer MEDICARE, MEDICAID | END 2023-04-24 15:05 | disposition left against medical advice (07) | LOC: M ED 13:22 → EDBD 13:22 → M ED 15:05 | DX: R07.9 Chest pain, unspecified (principal); I10 Essential (primary) hypertension; E78.5 Hyperlipidemia, unspecified; E03.9 Hypothyroidism, unspecified; F79 Unspecified intellectual disabilities; Z88.5 Allergy status to narcotic agent; Z79.4 Long term (current) use of insulin; Z79.83 Long term (current) use of bisphosphonates; Z79.02 Long term (current) use of antithrombotics/antiplatelets; Z79.899 Other long term (current) drug therapy ==

== ENCOUNTER → 2023-05-07 | Outpatient (CLI) | payer MEDICARE, MEDICAID | LOC: M PLAIMG 15:04 | PROVIDERS: ATTEND Physician Assistant Medical | DX: M17.11 Unilateral primary osteoarthritis, right knee (principal) ==

== ENCOUNTER → 2023-06-17 | Outpatient (CLI) | payer MEDICARE, MEDICAID ==
[2023-06-17 15:40] LABS: BASO % 0.3 % (0.0-1.0); EOS # 0.2 10^3/uL (0.0-0.5); EOS % 2.2 % (0.0-3.0); HEMATOCRIT 40.5 % (36.0-47.0); HEMOGLOBIN 12.5 g/dl (12.0-15.5); LYMPH # 1.4 10^3/uL (1.5-5.0); LYMPH % 16.3 % (24.0-44.0); MEAN CORPUSCULAR HEMOGLOBIN 27.5 pg (27.0-33.0); MEAN CORPUSCULAR HGB CONC 30.9 g/dl (32.0-36.5); MONO # 0.6 10^3/uL (0.0-0.8); NEUTROPHILS # 6.5 10^3/uL (1.5-8.5); NEUTROPHILS % 73.9 % (36.0-66.0); PLATELET COUNT, AUTOMATED 382 10^3/uL (150-450); RED BLOOD COUNT 4.55 10^6/uL (4.00-5.40); WHITE BLOOD COUNT 8.8 10^3/uL (4.0-10.0)
[2023-06-17 16:11] LABS: ALBUMIN 3.6 G/DL (3.2-5.2); BILIRUBIN,TOTAL 0.3 MG/DL (0.3-1.2); CALCIUM LEVEL 9.6 MG/DL (8.3-10.6); CHOLESTEROL RISK RATIO 3.64 (<5); CREATININE FOR GFR 0.99 MG/DL (0.55-1.30); FERRITIN 34.8 NG/ML (7.3-270.7); GLOMERULAR FILTRATION RATE 59.9 (>45); HDL CHOLESTEROL 50.7 MG/DL (>40); LDL CHOLESTEROL 75.3 MG/DL (<100); NON-HDL-C 134.3 MG/DL; POTASSIUM SERUM 3.6 MMOL/L (3.5-5.1); THYROID STIMULATING HORMONE 1.907 uIU/ML (0.55-4.78); TOTAL PROTEIN 6.9 G/DL (5.7-8.2)
[2023-06-17 16:12] LABS: FREE T4 1.22 NG/DL (0.89-1.76)
== END ==
LOC: M PLALAB 12:04
PROVIDERS: ATTEND Physician Assistant Medical
DX: D50.9 Iron deficiency anemia, unspecified (principal); E11.9 Type 2 diabetes mellitus without complications; E53.8 Deficiency of other specified B group vitamins; I15.2 Hypertension secondary to endocrine disorders; E03.9 Hypothyroidism, unspecified; E78.2 Mixed hyperlipidemia

== ENCOUNTER 2023-07-23 06:56 | Day surgery (SDC) | payer MEDICARE, MEDICAID ==
[~2023-07-23] VITALS: Ht 152.4 cm; Wt 129.6 kg
[~2023-07-23 06:56] MED LIST changes: +CALC600C3 PO; +LEXA5TAB13 PO
[2023-07-23] MEDS ORDERED: LR 1,000 ML IV SCH ×2 (08:10→10:10)
[2023-07-23] MEDS ORDERED: MIDAZOLAM INJ 2MG/2ML VIAL As Ordered ONE (09:44)
[2023-07-23] MEDS ORDERED: KETOROLAC 60MG 2ML VIAL As Ordered ONE (09:44)
[2023-07-23] MEDS ORDERED: LIDOCAINE 2% 100MG/5ML SDV (FOR ANES.) As Ordered ONE (09:44)
[2023-07-23] MEDS ORDERED: fentaNYL 100 MCG/2 ML INJECTION As Ordered ONE (09:44)
[2023-07-23] MEDS ORDERED: propofoL 200 MG/20 ML VIAL As Ordered ONE (09:44)
[2023-07-23] MEDS ORDERED: ONDANSETRON 4MG 2ML VIAL As Ordered ONE (09:44)
[2023-07-23] MEDS ORDERED: ACETAMINOPHEN 1000MG 100ML IV BAG As Ordered ONE (09:44)
[2023-07-23] MEDS ORDERED: fentaNYL 100 MCG/2 ML INJECTION IV PRN (10:10)
[2023-07-23] MEDS ORDERED: ONDANSETRON 4MG 2ML VIAL IV PRN (10:10)
[2023-07-23 11:55] VITALS: TEMP 96.5
[2023-07-23 12:30] VITALS: BP 134/68; O2SAT 93
== END 2023-07-23 14:15 | disposition home or self-care (01) ==
LOC: M SDC 06:56
PROVIDERS: ATTEND Obstetrics & Gynecology
DX: N84.0 Polyp of corpus uteri (principal); N95.0 Postmenopausal bleeding; I10 Essential (primary) hypertension; E78.5 Hyperlipidemia, unspecified; E03.9 Hypothyroidism, unspecified; Z79.899 Other long term (current) drug therapy; Z79.890 Hormone replacement therapy
CPT/HCPCS: 58558; 88305; J0131; J1885; J2250; J2405; J3010

== ENCOUNTER → 2023-07-27 | Outpatient (REF) | payer MEDICARE, MEDICAID ==
[2023-07-27 12:20] LABS: BASO % 0.4 % (0.0-1.0); EOS # 0.2 10^3/uL (0.0-0.5); EOS % 2.4 % (0.0-3.0); HEMATOCRIT 38.7 % (36.0-47.0); HEMOGLOBIN 12.3 g/dl (12.0-15.5); LYMPH # 1.5 10^3/uL (1.5-5.0); LYMPH % 17.8 % (24.0-44.0); MEAN CORPUSCULAR HGB CONC 31.8 g/dl (32.0-36.5); MEAN CORPUSCULAR VOLUME 88.2 fl (80.0-96.0); MONO # 0.6 10^3/uL (0.0-0.8); MONO % 7.1 % (2.0-8.0); NEUTROPHILS # 6.1 10^3/uL (1.5-8.5); NEUTROPHILS % 71.9 % (36.0-66.0); PLATELET COUNT, AUTOMATED 350 10^3/uL (150-450); RED BLOOD COUNT 4.39 10^6/uL (4.00-5.40); WHITE BLOOD COUNT 8.5 10^3/uL (4.0-10.0)
[2023-07-27 12:59] LABS: FERRITIN 45.1 NG/ML (7.3-270.7)
== END ==
PROVIDERS: ATTEND Physician Assistant Medical
DX: D50.9 Iron deficiency anemia, unspecified (principal)

== ENCOUNTER → 2023-09-09 | Outpatient (REF) | payer MEDICARE, MEDICAID ==
[2023-09-09 11:14] LABS: APPEARANCE, URINE HAZY (CLEAR); BACTERIA, URINE AUTO NEGATIVE (NEGATIVE); BILIRUBIN, URINE AUTO NEGATIVE (NEGATIVE); BLOOD, URINE BLOOD 1+ (NEGATIVE); COLOR, URINE YELLOW (YELLOW); GLUCOSE, URINE (UA) AUTO NEGATIVE (NEGATIVE); KETONE, URINE AUTO NEGATIVE (NEGATIVE); LEUKOCYTE ESTERASE, URINE AUTO TRACE (NEGATIVE); MUCUS, URINE SMALL (NEGATIVE); NITRITE, URINE AUTO NEGATIVE (NEGATIVE); PROTEIN, URINE AUTO NEGATIVE (NEGATIVE); RBC, URINE AUTO 0 /HPF (0-3); SPECIFIC GRAVITY URINE AUTO 1.023 (1.002-1.035); SQUAMOUS EPITHELIAL CELL UR AU 8 /HPF (0-6); UROBILINOGEN, URINE AUTO 0.2 mg/dL (0.0-2.0); WBC, URINE AUTO 4 /HPF (0-3)
== END ==
PROVIDERS: ATTEND Physician Assistant Medical
DX: R30.9 Painful micturition, unspecified (principal)

== ENCOUNTER 2023-10-01 17:31 | Emergency (ER) | payer MEDICARE, MEDICAID ==
[~2023-10-01] VITALS: Ht 152.4 cm; Wt 129.9 kg
[2023-10-01 21:29] LABS: BASO % 0.2 % (0.0-1.0); EOS # 0.2 10^3/uL (0.0-0.5); EOS % 1.9 % (0.0-3.0); HEMATOCRIT 39.5 % (36.0-47.0); HEMOGLOBIN 12.9 g/dl (12.0-15.5); LYMPH # 1.4 10^3/uL (1.5-5.0); LYMPH % 11.7 % (24.0-44.0); MEAN CORPUSCULAR HGB CONC 32.7 g/dl (32.0-36.5); MEAN CORPUSCULAR VOLUME 85.7 fl (80.0-96.0); MONO # 0.7 10^3/uL (0.0-0.8); MONO % 5.8 % (2.0-8.0); NEUTROPHILS # 9.7 10^3/uL (1.5-8.5); PLATELET COUNT, AUTOMATED 372 10^3/uL (150-450); RED BLOOD COUNT 4.61 10^6/uL (4.00-5.40); WHITE BLOOD COUNT 12.1 10^3/uL (4.0-10.0)
[2023-10-01 21:59] LABS: ALBUMIN 3.7 G/DL (3.2-5.2); ALKALINE PHOSPHATASE 113 U/L (46-116); ALT/SGPT 22 U/L (7.0-40); AST/SGOT 27 U/L (<34); BILIRUBIN,DIRECT < 0.1 MG/DL (<0.4); BILIRUBIN,TOTAL 0.4 MG/DL (0.3-1.2); BLOOD UREA NITROGEN 31 MG/DL (9-23); CALCIUM LEVEL 9.9 MG/DL (8.3-10.6); CARBON DIOXIDE LEVEL 31 MMOL/L (20-31); CHLORIDE LEVEL 101 MMOL/L (98-107); CREATININE FOR GFR 0.84 MG/DL (0.55-1.30); GLOMERULAR FILTRATION RATE > 60.0 (>45); GLUCOSE, FASTING 116 MG/DL (74-106); LIPASE 21 U/L (12-53); POTASSIUM SERUM 4.2 MMOL/L (3.5-5.1); SODIUM LEVEL 140 MMOL/L (136-145); TOTAL PROTEIN 7.3 G/DL (5.7-8.2)
[2023-10-01] MEDS: KETOROLAC 30 MG/ML 1ML VIAL IV ONE (22:53)
[2023-10-02 00:11] VITALS: BP 134/68; TEMP 97.8; O2SAT 98
== END 2023-10-02 00:20 | disposition home or self-care (01) ==
LOC: M ED 17:31
DX: R10.9 Unspecified abdominal pain (principal); X50.0XXA Overexertion from strenuous movement or load, initial encounter; K44.9 Diaphragmatic hernia without obstruction or gangrene; I10 Essential (primary) hypertension; F79 Unspecified intellectual disabilities; K21.9 Gastro-esophageal reflux disease without esophagitis; E03.9 Hypothyroidism, unspecified; Z87.442 Personal history of urinary calculi; Z79.1 Long term (current) use of non-steroidal anti-inflammatories (NSAID); Z79.4 Long term (current) use of insulin; Z79.02 Long term (current) use of antithrombotics/antiplatelets; Z79.811 Long term (current) use of aromatase inhibitors; Z79.899 Other long term (current) drug therapy; Z88.5 Allergy status to narcotic agent; Y92.009 Unspecified place in unspecified non-institutional (private) residence as the place of occurrence of the external cause; Y93.89 Activity, other specified; Y99.9 Unspecified external cause status
CPT/HCPCS: 74176; 80048; 80076; 81001; 83690; 85025; 96374; 99284; J1885

== ENCOUNTER → 2023-11-06 | Outpatient (CLI) | payer MEDICARE, MEDICAID ==
[~2023-11-06] MED LIST changes: -AZEL0.055; +AZEL1SPR4
== END ==
LOC: M WHC 10:14
PROVIDERS: ATTEND Physician Assistant Medical
DX: Z12.31 Encounter for screening mammogram for malignant neoplasm of breast (principal); M81.0 Age-related osteoporosis without current pathological fracture

== ENCOUNTER 2023-12-05 20:15 | Emergency (ER) | payer MEDICARE, MEDICAID ==
[~2023-12-05] VITALS: Ht 152.4 cm; Wt 109.1 kg
[2023-12-05 20:56] LABS: BASO % 0.3 % (0.0-1.0); EOS # 0.3 10^3/uL (0.0-0.5); EOS % 2.8 % (0.0-3.0); HEMATOCRIT 38.4 % (36.0-47.0); HEMOGLOBIN 12.2 g/dl (12.0-15.5); LYMPH # 1.3 10^3/uL (1.5-5.0); LYMPH % 10.8 % (24.0-44.0); MEAN CORPUSCULAR HGB CONC 31.8 g/dl (32.0-36.5); MEAN CORPUSCULAR VOLUME 88.1 fl (80.0-96.0); MONO # 0.8 10^3/uL (0.0-0.8); MONO % 6.7 % (2.0-8.0); NEUTROPHILS # 9.1 10^3/uL (1.5-8.5); NEUTROPHILS % 79.1 % (36.0-66.0); PLATELET COUNT, AUTOMATED 357 10^3/uL (150-450); RED BLOOD COUNT 4.36 10^6/uL (4.00-5.40); WHITE BLOOD COUNT 11.5 10^3/uL (4.0-10.0)
[2023-12-05 21:35] LABS: BLOOD UREA NITROGEN 35 MG/DL (9-23); CALCIUM LEVEL 9.1 MG/DL (8.3-10.6); CARBON DIOXIDE LEVEL 28 MMOL/L (20-31); CHLORIDE LEVEL 104 MMOL/L (98-107); CK-MB VALUE MASS < 1.0 NG/ML (<3.6); CREATININE FOR GFR 0.94 MG/DL (0.55-1.30); GLOMERULAR FILTRATION RATE > 60.0 (>45); GLUCOSE, FASTING 109 MG/DL (74-106); POTASSIUM SERUM 4.2 MMOL/L (3.5-5.1); SODIUM LEVEL 139 MMOL/L (136-145)
[2023-12-05 21:37] LABS: CPK CREATINE PHOSPHOKINASE 86 U/L (34-145); MB/CK RELATIVE INDEX 1.16 (< OR =4)
[2023-12-05 22:30] VITALS: BP 133/63; TEMP 98.1; O2SAT 93
== END 2023-12-05 23:30 | disposition home or self-care (01) ==
LOC: EDBD 20:15 → M ED 20:15
DX: R07.89 Other chest pain (principal); K30 Functional dyspepsia; E11.9 Type 2 diabetes mellitus without complications; I10 Essential (primary) hypertension; K21.9 Gastro-esophageal reflux disease without esophagitis; Z88.5 Allergy status to narcotic agent; Z79.1 Long term (current) use of non-steroidal anti-inflammatories (NSAID); Z79.84 Long term (current) use of oral hypoglycemic drugs; Z79.899 Other long term (current) drug therapy

== ENCOUNTER → 2023-12-22 | Outpatient (REF) | payer MEDICARE, MEDICAID ==
[2023-12-22 12:43] LABS: APPEARANCE, URINE HAZY (CLEAR); BACTERIA, URINE AUTO NEGATIVE (NEGATIVE); BILIRUBIN, URINE AUTO NEGATIVE (NEGATIVE); BLOOD, URINE BLOOD NEGATIVE (NEGATIVE); COLOR, URINE YELLOW (YELLOW); GLUCOSE, URINE (UA) AUTO NEGATIVE (NEGATIVE); KETONE, URINE AUTO NEGATIVE (NEGATIVE); LEUKOCYTE ESTERASE, URINE AUTO NEGATIVE (NEGATIVE); MUCUS, URINE SMALL (NEGATIVE); NITRITE, URINE AUTO NEGATIVE (NEGATIVE); PROTEIN, URINE AUTO NEGATIVE (NEGATIVE); RBC, URINE AUTO 0 /HPF (0-3); SPECIFIC GRAVITY URINE AUTO 1.025 (1.002-1.035); SQUAMOUS EPITHELIAL CELL UR AU 7 /HPF (0-6); UROBILINOGEN, URINE AUTO 0.2 mg/dL (0.0-2.0); WBC, URINE AUTO 1 /HPF (0-3)
== END ==
PROVIDERS: ATTEND Physician Assistant Medical
DX: R82.998 Other abnormal findings in urine (principal); R30.9 Painful micturition, unspecified

== ENCOUNTER → 2023-12-30 | Outpatient (REF) | payer MEDICARE, MEDICAID ==
[2023-12-30 10:27] LABS: BASO % 0.3 % (0.0-1.0); EOS # 0.2 10^3/uL (0.0-0.5); EOS % 2.6 % (0.0-3.0); HEMATOCRIT 36.6 % (36.0-47.0); HEMOGLOBIN 11.5 g/dl (12.0-15.5); LYMPH # 1.3 10^3/uL (1.5-5.0); LYMPH % 13.6 % (24.0-44.0); MEAN CORPUSCULAR HEMOGLOBIN 27.6 pg (27.0-33.0); MEAN CORPUSCULAR HGB CONC 31.4 g/dl (32.0-36.5); MONO # 0.6 10^3/uL (0.0-0.8); MONO % 5.9 % (2.0-8.0); NEUTROPHILS # 7.2 10^3/uL (1.5-8.5); NEUTROPHILS % 77.3 % (36.0-66.0); PLATELET COUNT, AUTOMATED 346 10^3/uL (150-450); RED BLOOD COUNT 4.16 10^6/uL (4.00-5.40); WHITE BLOOD COUNT 9.3 10^3/uL (4.0-10.0)
[2023-12-30 10:56] LABS: FREE T4 1.26 NG/DL (0.89-1.76); THYROID STIMULATING HORMONE 0.836 uIU/ML (0.55-4.78)
[2023-12-30 10:57] LABS: FERRITIN 45.8 NG/ML (7.3-270.7)
[2023-12-30 10:58] LABS: IRON (FE) 41 UG/DL (50-170)
[2023-12-30 10:59] LABS: ALBUMIN 3.1 G/DL (3.2-5.2); ALKALINE PHOSPHATASE 101 U/L (46-116); ALT/SGPT 12 U/L (7.0-40); AST/SGOT 9 U/L (<34); BILIRUBIN,TOTAL 0.3 MG/DL (0.3-1.2); BLOOD UREA NITROGEN 31 MG/DL (9-23); CALCIUM LEVEL 9.1 MG/DL (8.3-10.6); CARBON DIOXIDE LEVEL 27 MMOL/L (20-31); CHLORIDE LEVEL 106 MMOL/L (98-107); CHOLESTEROL LEVEL 170 MG/DL (<200); CHOLESTEROL RISK RATIO 4.32 (<5); CREATININE FOR GFR 0.91 MG/DL (0.55-1.30); GLOMERULAR FILTRATION RATE > 60.0 (>45); GLUCOSE, FASTING 157 MG/DL (74-106); HDL CHOLESTEROL 39.3 MG/DL (>40); LDL CHOLESTEROL 72.1 MG/DL (<100); NON-HDL-C 130.7 MG/DL; SODIUM LEVEL 142 MMOL/L (136-145); TOTAL PROTEIN 6.9 G/DL (5.7-8.2); TRIGLYCERIDES LEVEL 293 MG/DL (<150)
[2023-12-30 11:01] LABS: VITAMIN B12 LEVEL 1571 PG/ML (211-911)
[2023-12-30 11:02] LABS: HEMOGLOBIN A1c 5.9 % (4.0-6.0)
== END ==
PROVIDERS: ATTEND Physician Assistant Medical
DX: D50.9 Iron deficiency anemia, unspecified (principal); E53.8 Deficiency of other specified B group vitamins; E11.9 Type 2 diabetes mellitus without complications; E78.2 Mixed hyperlipidemia; F41.9 Anxiety disorder, unspecified; E03.9 Hypothyroidism, unspecified

== ENCOUNTER → 2024-02-15 | Outpatient (REF) | payer MEDICARE, MEDICAID ==
[~2024-02-15] MED LIST changes: -CALC500T31 PO; +OYST500T16 PO; -SIME180C25 PO; +SIME1CAP4 PO
[2024-02-15 10:09] LABS: BASO % 0.3 % (0.0-1.0); EOS # 0.3 10^3/uL (0.0-0.5); EOS % 2.8 % (0.0-3.0); HEMOGLOBIN 10.8 g/dl (12.0-15.5); LYMPH # 1.6 10^3/uL (1.5-5.0); LYMPH % 17.4 % (24.0-44.0); MEAN CORPUSCULAR HEMOGLOBIN 27.4 pg (27.0-33.0); MEAN CORPUSCULAR HGB CONC 30.9 g/dl (32.0-36.5); MEAN CORPUSCULAR VOLUME 88.8 fl (80.0-96.0); MONO # 0.6 10^3/uL (0.0-0.8); MONO % 6.6 % (2.0-8.0); NEUTROPHILS # 6.6 10^3/uL (1.5-8.5); NEUTROPHILS % 72.6 % (36.0-66.0); PLATELET COUNT, AUTOMATED 324 10^3/uL (150-450); RED BLOOD COUNT 3.94 10^6/uL (4.00-5.40); WHITE BLOOD COUNT 9.1 10^3/uL (4.0-10.0)
== END ==
PROVIDERS: ATTEND Physician Assistant Medical
DX: D50.9 Iron deficiency anemia, unspecified (principal)

== ENCOUNTER → 2024-05-25 | Outpatient (REF) | payer MEDICARE, MEDICAID ==
[2024-05-25 15:26] LABS: ALBUMIN 3.5 G/DL (3.2-5.2); ALKALINE PHOSPHATASE 94 U/L (35-104); ALT/SGPT 19 U/L (7.0-40); AST/SGOT 20 U/L (<34); BILIRUBIN,TOTAL 0.2 MG/DL (0.3-1.2); BLOOD UREA NITROGEN 30 MG/DL (9-23); CARBON DIOXIDE LEVEL 25 MMOL/L (20-31); CHLORIDE LEVEL 107 MMOL/L (98-107); CREATININE FOR GFR 0.82 MG/DL (0.55-1.30); GLOMERULAR FILTRATION RATE > 60.0 (>45); GLUCOSE, FASTING 67 MG/DL (74-106); POTASSIUM SERUM 4.4 MMOL/L (3.5-5.1); SODIUM LEVEL 144 MMOL/L (136-145); TOTAL PROTEIN 7.3 G/DL (5.7-8.2)
== END ==
PROVIDERS: ATTEND Physician Assistant Medical
DX: I10 Essential (primary) hypertension (principal)

== ENCOUNTER 2024-06-06 19:40 | Emergency (ER) | payer MEDICARE, MEDICAID ==
[~2024-06-06] VITALS: Ht 152.4 cm; Wt 113.6 kg
[2024-06-06 20:13] VITALS: BP 165/88; TEMP 98.8; O2SAT 97
[2024-06-06 20:26] LABS: BASO % 0.3 % (0.0-1.0); EOS # 0.2 10^3/uL (0.0-0.5); EOS % 2.6 % (0.0-3.0); HEMATOCRIT 37.2 % (36.0-47.0); HEMOGLOBIN 11.9 g/dl (12.0-15.5); LYMPH # 1.3 10^3/uL (1.5-5.0); LYMPH % 14.6 % (24.0-44.0); MEAN CORPUSCULAR HEMOGLOBIN 27.7 pg (27.0-33.0); MEAN CORPUSCULAR VOLUME 86.7 fl (80.0-96.0); MONO # 0.9 10^3/uL (0.0-0.8); MONO % 9.5 % (2.0-8.0); NEUTROPHILS # 6.5 10^3/uL (1.5-8.5); NEUTROPHILS % 72.4 % (36.0-66.0); PLATELET COUNT, AUTOMATED 333 10^3/uL (150-450); RED BLOOD COUNT 4.29 10^6/uL (4.00-5.40)
[2024-06-06 20:51] LABS: CK-MB VALUE MASS < 1.0 NG/ML (<3.6)
[2024-06-06 20:53] LABS: BLOOD UREA NITROGEN 38 MG/DL (9-23); CARBON DIOXIDE LEVEL 27 MMOL/L (20-31); CHLORIDE LEVEL 106 MMOL/L (98-107); CREATININE FOR GFR 0.92 MG/DL (0.55-1.30); GLOMERULAR FILTRATION RATE > 60.0 (>45); GLUCOSE, FASTING 97 MG/DL (74-106); POTASSIUM SERUM 3.8 MMOL/L (3.5-5.1); SODIUM LEVEL 142 MMOL/L (136-145)
[2024-06-06 20:55] LABS: CPK CREATINE PHOSPHOKINASE 64 U/L (34-145); MB/CK RELATIVE INDEX 1.56 (< OR =4)
[2024-06-06 23:32] LABS: CK-MB VALUE MASS < 1.0 NG/ML (<3.6)
[2024-06-06 23:38] LABS: CPK CREATINE PHOSPHOKINASE 70 U/L (34-145); MB/CK RELATIVE INDEX 1.42 (< OR =4)
== END 2024-06-07 00:51 | disposition home or self-care (01) ==
LOC: M ED 19:40
DX: K29.00 Acute gastritis without bleeding (principal); K21.9 Gastro-esophageal reflux disease without esophagitis; I10 Essential (primary) hypertension; E03.9 Hypothyroidism, unspecified; G47.33 Obstructive sleep apnea (adult) (pediatric); Z88.5 Allergy status to narcotic agent; Z79.1 Long term (current) use of non-steroidal anti-inflammatories (NSAID); Z79.02 Long term (current) use of antithrombotics/antiplatelets; Z79.899 Other long term (current) drug therapy; Z79.4 Long term (current) use of insulin

== ENCOUNTER → 2024-06-29 | Outpatient (REF) | payer MEDICARE, MEDICAID ==
[2024-06-29 09:31] LABS: BASO % 0.3 % (0.0-1.0); EOS # 0.2 10^3/uL (0.0-0.5); EOS % 2.4 % (0.0-3.0); HEMATOCRIT 37.4 % (36.0-47.0); HEMOGLOBIN 11.7 g/dl (12.0-15.5); LYMPH # 1.4 10^3/uL (1.5-5.0); LYMPH % 18.7 % (24.0-44.0); MEAN CORPUSCULAR HEMOGLOBIN 27.7 pg (27.0-33.0); MEAN CORPUSCULAR HGB CONC 31.3 g/dl (32.0-36.5); MEAN CORPUSCULAR VOLUME 88.4 fl (80.0-96.0); MONO # 0.4 10^3/uL (0.0-0.8); MONO % 5.3 % (2.0-8.0); NEUTROPHILS # 5.6 10^3/uL (1.5-8.5); NEUTROPHILS % 72.9 % (36.0-66.0); PLATELET COUNT, AUTOMATED 370 10^3/uL (150-450); RED BLOOD COUNT 4.23 10^6/uL (4.00-5.40); WHITE BLOOD COUNT 7.6 10^3/uL (4.0-10.0)
[2024-06-29 09:54] LABS: HEMOGLOBIN A1c 5.9 % (4.0-6.0)
[2024-06-29 09:55] LABS: ALBUMIN 3.2 G/DL (3.2-5.2); ALKALINE PHOSPHATASE 84 U/L (35-104); ALT/SGPT 18 U/L (7.0-40); AST/SGOT 10 U/L (<34); BILIRUBIN,TOTAL 0.2 MG/DL (0.3-1.2); BLOOD UREA NITROGEN 27 MG/DL (9-23); CALCIUM LEVEL 9.2 MG/DL (8.3-10.6); CARBON DIOXIDE LEVEL 29 MMOL/L (20-31); CHLORIDE LEVEL 104 MMOL/L (98-107); GLOMERULAR FILTRATION RATE > 60.0 (>45); GLUCOSE, FASTING 114 MG/DL (74-106); IRON (FE) 33 UG/DL (50-170); POTASSIUM SERUM 3.8 MMOL/L (3.5-5.1); SODIUM LEVEL 143 MMOL/L (136-145); TOTAL PROTEIN 6.9 G/DL (5.7-8.2)
== END ==
PROVIDERS: ATTEND Physician Assistant Medical
DX: E11.9 Type 2 diabetes mellitus without complications (principal); D50.9 Iron deficiency anemia, unspecified; I10 Essential (primary) hypertension

== ENCOUNTER 2024-08-15 01:47 | Emergency (ER) | payer MEDICARE, MEDICAID ==
[~2024-08-15] VITALS: Ht 152.4 cm; Wt 130.9 kg
[2024-08-15 03:21] LABS: KETONE, URINE AUTO RFX NEGATIVE (NEGATIVE); LEUKOCYTE ESTERASE UR AUTO RFX NEGATIVE (NEGATIVE); NITRITE, URINE AUTO RFX NEGATIVE (NEGATIVE); RBC, URINE AUTO RFX 0 /HPF (0-3); SQUAM EPITHELIAL CELL UR AURFX 3 /HPF (0-6); WBC, URINE AUTO RFX 1 /HPF (0-3)
[2024-08-15 08:34] LABS: BASO % 0.5 % (0.0-1.0); EOS # 0.2 10^3/uL (0.0-0.5); EOS % 2.7 % (0.0-3.0); HEMATOCRIT 37.2 % (36.0-47.0); LYMPH # 1.3 10^3/uL (1.5-5.0); LYMPH % 15.4 % (24.0-44.0); MEAN CORPUSCULAR HEMOGLOBIN 28.2 pg (27.0-33.0); MEAN CORPUSCULAR HGB CONC 32.3 g/dl (32.0-36.5); MEAN CORPUSCULAR VOLUME 87.3 fl (80.0-96.0); MONO # 0.6 10^3/uL (0.0-0.8); MONO % 6.6 % (2.0-8.0); NEUTROPHILS # 6.4 10^3/uL (1.5-8.5); NEUTROPHILS % 74.5 % (36.0-66.0); PLATELET COUNT, AUTOMATED 334 10^3/uL (150-450); RED BLOOD COUNT 4.26 10^6/uL (4.00-5.40); WHITE BLOOD COUNT 8.6 10^3/uL (4.0-10.0)
[2024-08-15] MEDS: IBUPROFEN 400MG TAB PO ONE (08:47)
[2024-08-15 08:59] LABS: LIPASE 20 U/L (12-53)
[2024-08-15 09:01] LABS: ALBUMIN 3.5 G/DL (3.2-5.2); ALKALINE PHOSPHATASE 88 U/L (35-104); ALT/SGPT 21 U/L (7.0-40); AST/SGOT 14 U/L (<34); BILIRUBIN,TOTAL 0.3 MG/DL (0.3-1.2); BLOOD UREA NITROGEN 29 MG/DL (9-23); CARBON DIOXIDE LEVEL 28 MMOL/L (20-31); CHLORIDE LEVEL 104 MMOL/L (98-107); CREATININE FOR GFR 0.81 MG/DL (0.55-1.30); GLOMERULAR FILTRATION RATE > 60.0 (>45); GLUCOSE, FASTING 106 MG/DL (74-106); POTASSIUM SERUM 3.5 MMOL/L (3.5-5.1); SODIUM LEVEL 143 MMOL/L (136-145); TOTAL PROTEIN 7.1 G/DL (5.7-8.2)
[2024-08-15 09:24] VITALS: BP 139/65; TEMP 97.1; O2SAT 97
== END 2024-08-15 09:47 | disposition home or self-care (01) ==
LOC: M ED 01:47
DX: R10.9 Unspecified abdominal pain (principal); K21.9 Gastro-esophageal reflux disease without esophagitis; I10 Essential (primary) hypertension; F70 Mild intellectual disabilities; K86.89 Other specified diseases of pancreas; K44.9 Diaphragmatic hernia without obstruction or gangrene; K57.30 Diverticulosis of large intestine without perforation or abscess without bleeding; K42.9 Umbilical hernia without obstruction or gangrene; Z87.442 Personal history of urinary calculi; Z88.5 Allergy status to narcotic agent; Z79.02 Long term (current) use of antithrombotics/antiplatelets; Z79.4 Long term (current) use of insulin; Z79.83 Long term (current) use of bisphosphonates; Z79.899 Other long term (current) drug therapy

== ENCOUNTER → 2024-11-07 | Outpatient (REF) | payer MEDICARE, MEDICAID ==
[~2024-11-07] MED LIST changes: +LISI40TA10 PO; -LISI40TA4 PO; -NYST-13 TOP; +NYST0.1C TOP; +TOPI-256 PO; -TOPI25TA10 PO
[2024-11-07 08:41] LABS: BASO # 0.1 10^3/uL (0.0-0.2); BASO % 0.7 % (0.0-1.0); EOS # 0.3 10^3/uL (0.0-0.5); EOS % 3.4 % (0.0-3.0); HEMATOCRIT 38.8 % (36.0-47.0); HEMOGLOBIN 11.9 g/dl (12.0-15.5); LYMPH # 1.5 10^3/uL (1.5-5.0); LYMPH % 19.6 % (24.0-44.0); MEAN CORPUSCULAR HEMOGLOBIN 27.8 pg (27.0-33.0); MEAN CORPUSCULAR HGB CONC 30.7 g/dl (32.0-36.5); MEAN CORPUSCULAR VOLUME 90.7 fl (80.0-96.0); MONO # 0.6 10^3/uL (0.0-0.8); MONO % 8.4 % (2.0-8.0); NEUTROPHILS % 67.6 % (36.0-66.0); PLATELET COUNT, AUTOMATED 351 10^3/uL (150-450); RED BLOOD COUNT 4.28 10^6/uL (4.00-5.40); WHITE BLOOD COUNT 7.4 10^3/uL (4.0-10.0)
[2024-11-07 08:59] LABS: HEMOGLOBIN A1c 5.8 % (4.0-6.0)
[2024-11-07 09:14] LABS: THYROID STIMULATING HORMONE 2.903 uIU/ML (0.55-4.78)
[2024-11-07 09:20] LABS: FERRITIN 55.7 NG/ML (7.3-270.7); FREE T4 1.21 NG/DL (0.89-1.76)
[2024-11-07 09:29] LABS: ALBUMIN 3.6 G/DL (3.2-5.2); BILIRUBIN,TOTAL 0.3 MG/DL (0.3-1.2); CALCIUM LEVEL 9.1 MG/DL (8.3-10.6); CHOLESTEROL RISK RATIO 3.68 (<5); CREATININE FOR GFR 0.91 MG/DL (0.55-1.30); GLOMERULAR FILTRATION RATE 69.6 (>45); HDL CHOLESTEROL 45.6 MG/DL (>40); LDL CHOLESTEROL 69.4 MG/DL (<100); NON-HDL-C 122.4 MG/DL; POTASSIUM SERUM 3.8 MMOL/L (3.5-5.1); TOTAL PROTEIN 7.1 G/DL (5.7-8.2)
== END ==
PROVIDERS: ATTEND Physician Assistant Medical
DX: I15.2 Hypertension secondary to endocrine disorders (principal); E03.9 Hypothyroidism, unspecified; N18.31 Chronic kidney disease, stage 3a; E11.22 Type 2 diabetes mellitus with diabetic chronic kidney disease; E53.8 Deficiency of other specified B group vitamins; E78.2 Mixed hyperlipidemia; K76.0 Fatty (change of) liver, not elsewhere classified; D50.9 Iron deficiency anemia, unspecified

== ENCOUNTER → 2024-11-16 | Outpatient (CLI) | payer MEDICARE, MEDICAID | LOC: M WHC 12:56 | PROVIDERS: ATTEND Physician Assistant Medical | DX: Z12.31 Encounter for screening mammogram for malignant neoplasm of breast (principal) ==

== ENCOUNTER → 2024-12-14 | Outpatient (CLI) | payer MEDICARE, MEDICAID | LOC: M WHC 08:51 | PROVIDERS: ATTEND Physician Assistant Medical | DX: D50.9 Iron deficiency anemia, unspecified (principal); Z53.9 Procedure and treatment not carried out, unspecified reason ==

== ENCOUNTER → 2024-12-23 | Outpatient (CLI) | payer MEDICARE, MEDICAID | LOC: M WHC 12:19 | PROVIDERS: ATTEND Physician Assistant Medical | DX: Z12.31 Encounter for screening mammogram for malignant neoplasm of breast (principal); R92.313 Mammographic fatty tissue density, bilateral breasts ==

== ENCOUNTER → 2025-01-20 | Outpatient (REF) | payer MEDICARE, MEDICAID ==
[~2025-01-20] MED LIST changes: -IBUP-1022 PO; +IBUP600T42 PO
== END ==
LOC: M SFHCPLAZ 10:13
PROVIDERS: ATTEND Nurse Practitioner Family
DX: J02.9 Acute pharyngitis, unspecified (principal)

== ENCOUNTER → 2025-01-26 | Outpatient (REF) | payer MEDICARE, MEDICAID ==
[2025-01-26 15:35] LABS: FREE T4 1.23 NG/DL (0.89-1.76)
[2025-01-26 15:51] LABS: ESTIMATED AVERAGE GLUCOSE 128.0 MG/DL (60-110)
== END ==
LOC: M SFHCPLAZ 10:50
PROVIDERS: ATTEND Physician Assistant Medical
DX: E03.9 Hypothyroidism, unspecified (principal); E66.01 Morbid (severe) obesity due to excess calories; E11.9 Type 2 diabetes mellitus without complications

== ENCOUNTER 2025-04-01 17:10 | Emergency (ER) | payer MEDICARE, MEDICAID ==
[2025-04-01] MEDS: ACETAMINOPHEN 500 MG TAB PO ONE (21:52)
[2025-04-01 22:09] VITALS: BP 155/71; TEMP 97.9; O2SAT 95
== END 2025-04-01 23:00 | disposition home or self-care (01) ==
LOC: M ED 17:10 → EDBD 17:10 → M ED 23:00
DX: S93.402A Sprain of unspecified ligament of left ankle, initial encounter (principal); X50.0XXA Overexertion from strenuous movement or load, initial encounter; E78.5 Hyperlipidemia, unspecified; K21.9 Gastro-esophageal reflux disease without esophagitis; Y92.009 Unspecified place in unspecified non-institutional (private) residence as the place of occurrence of the external cause; Y93.89 Activity, other specified; Y99.9 Unspecified external cause status; Z88.5 Allergy status to narcotic agent; Z79.1 Long term (current) use of non-steroidal anti-inflammatories (NSAID); Z79.02 Long term (current) use of antithrombotics/antiplatelets; Z79.899 Other long term (current) drug therapy; Z79.4 Long term (current) use of insulin

== ENCOUNTER → 2025-04-05 | Outpatient (REF) | payer MEDICARE, MEDICAID ==
[2025-04-05 09:15] LABS: BASO # 0.0 10^3/uL (0.0-0.2); BASO % 0.4 % (0.0-1.0); EOS # 0.2 10^3/uL (0.0-0.5); EOS % 2.6 % (0.0-3.0); LYMPH # 1.5 10^3/uL (1.5-5.0); LYMPH % 21.1 % (24.0-44.0); MONO # 0.6 10^3/uL (0.0-0.8); MONO % 7.6 % (2.0-8.0); NEUTROPHILS # 4.9 10^3/uL (1.5-8.5); NEUTROPHILS % 68.0 % (36.0-66.0); PLATELET COUNT, AUTOMATED 356 10^3/uL (150-450)
[2025-04-05 09:37] LABS: IRON (FE) 36.0 UG/DL (50-170)
== END ==
PROVIDERS: ATTEND Physician Assistant Medical
DX: D50.9 Iron deficiency anemia, unspecified (principal)